=== PATIENT | male | born 1970 | race Caucasian/White ===

== ENCOUNTER → 2016-08-04 | Outpatient (CLI) | payer MEDICARE, MEDICAID ==
[~2016-08-04] MED LIST: ALDACTONE25 MG PO; ALLERGY RELIEF10 M1 PO; BACTRIM DS 8001 TA1 PO; BUMEX2.5 MG/10 IV; CALTRATE 600+D1 TAB PO; CLARITIN10 MG PO; COREG25 MG PO; COREG3.125 MG PO; DILTIAZEM240 MG PO; FERROUS SULFAT325 M1 PO; FLONASE0.05 MG/AC NS; FLOVENT 220 M220 MCG INH; FLOVENT HF0.11 MG/AC IH; FUROSEMIDE40 MG PO; HUMALOG100 U/ML SC; HYDROCODONE BIT1 T11 PO; INDOCIN50 M1 PO; INDOCIN50 MG PO; INSULIN-HUMA100 U/ML SC; JANUVIA100 MG PO; KLOR-CON M2020 MEQ PO; LANOXIN0.25 MG PO; LANTUS100 U/ML SC; LASIX40 MG PO; LEVOTHYROXINE0.1 MG PO; LIPITOR10 MG PO; Lac-Hydrin 12%340 GM TP; METFORMIN1000 MG PO; METFORMIN850 MG PO; MULTIPLE VITAMI1 TAB PO; NAPROSYN500 MG PO; NORCO 325 MG-51 TAB PO; NORVASC10 MG PO; PANTOPRAZOLE40 M1 PO; PERCOCET 325 MG1 TA2 PO; PERCOCET 325 MG1 TA7 PO; PRAVACHOL40 MG PO; PRILOSEC20 MG PO; PROAIR HFA0.09 MG/AC IH; PROAIR HFA0.09 MG/AC INH; RELION; ROXICODONE5 MG/5 ML PO; TORSEMIDE100 MG PO; TRICOR145 MG PO; VICO75300 PO; VICODIN ES 7501 TA1 PO; VICTOZA6 MG/ML SC; VITAMIN B12500 MCG PO; VITAMIN D5000 IU PO; ZEASORB-AF2% T; [UNRECOGNIZED DRUG - OTHER]; [UNRECOGNIZED DRUG - SUPPLY]
== END | disposition home or self-care (01) ==
LOC: LAB 07:37
DX: N18.9 Chronic kidney disease, unspecified (principal); M10.9 Gout, unspecified

== ENCOUNTER 2017-06-18 13:31 | Emergency (ER) | payer MEDICARE, MEDICAID ==
[~2017-06-18] VITALS: Ht 172.7 cm; Wt 204.6 kg
[2017-06-18 14:28] LABS: HEMATOCRIT 19.3 % (42.0-52.0); MEAN CELL VOLUME 90.2 fl (80.0-94.0); MEAN CORPUSCULAR HGB 26.2 pg (27.0-31.0); MEAN PLATELET VOLUME 11.2 fl (9.6-12.3); NUCLEATED RED BLOOD CELL 0.1 10*3/uL (0.0-0.0); PLATELET COUNT AUTOMATED 180 10*3/uL (130-400); RED BLOOD COUNT 2.14 10*6/uL (4.50-5.90); RED CELL DISTRI WIDTH 19.1 % (0-14.5); WHITE BLOOD COUNT 4.1 10*3/uL (4.8-10.8)
[2017-06-18 14:36] LABS: ACT PARTIAL THROMBO TIME 19.1 SECONDS (20.8-31.5); INTERNATIONAL NORM RATIO 1.1 (2.0-3.5)
[2017-06-18 14:44] LABS: ALBUMIN 2.9 gm/dl (3.1-4.5); CREATININE 1.86 mg/dL (0.70-1.30); TOTAL PROTEIN 6.3 gm/dL (6.4-8.2)
[2017-06-18 14:47] LABS: HEMOGLOBIN 5.6 g/dl (14.0-18.0)
[2017-06-18 14:51] LABS: TOTAL CELLS COUNTED 100 #CELLS
[2017-06-18 14:52] LABS: OVALOCYTES FEW; PLATELET SUFFICIENCY NORMAL (NORMAL)
[2017-06-18] MEDS ORDERED: BUMETANIDE1 MG PO (15:10)
[2017-06-18] MEDS ORDERED: ALLOPURINOL100 MG PO (15:10)
[2017-06-18] MEDS ORDERED: NYSTATIN CREAM15 GM T (15:12)
[2017-06-18 16:08] LABS: ABG BASE EXCESS 1.1 mmol/L (-2.0-2.0); ABG HCO3 24.7 mmol/l (22-26); ARTERIAL BLOOD GAS PCO2 35.7 mmHg (35-45); ARTERIAL BLOOD GAS PH 7.452 (7.35-7.45); ARTERIAL BLOOD GAS PO2 88.6 mmHg (80-90)
== END 2017-06-18 17:05 | disposition short-term general hospital (02) ==
LOC: ED 13:31
PROVIDERS: Emergency Medicine
DX: K92.2 Gastrointestinal hemorrhage, unspecified (principal); E66.01 Morbid (severe) obesity due to excess calories; D64.9 Anemia, unspecified; E11.9 Type 2 diabetes mellitus without complications; M10.9 Gout, unspecified; M25.511 Pain in right shoulder; G25.81 Restless legs syndrome; I11.0 Hypertensive heart disease with heart failure; I50.9 Heart failure, unspecified; G47.30 Sleep apnea, unspecified; J44.9 Chronic obstructive pulmonary disease, unspecified; Z98.84 Bariatric surgery status; Z79.899 Other long term (current) drug therapy; Z87.891 Personal history of nicotine dependence; Z79.4 Long term (current) use of insulin

== ENCOUNTER 2017-09-15 13:18 | Inpatient (IN) | payer OTHER ==
[2017-09-15] VITALS (10 sets, daily range): BP systolic 108–129; BP diastolic 53–80
[~2017-09-15] VITALS: Ht 182.9 cm; Wt 174.4 kg
--- NOTE | ~2017-09-15 | DS ---
[place], [place] DISCHARGE SUMMARY NAME: ANABELLA MALIK UNIT #: [id number] ROOM: 526 DOCTOR: JAMAAL BURNETTMIGUELANGEL J BIRTHDATE: [birth year] DOS: 09/21/2017 DISCHARGE DIAGNOSES: 1. Iron deficiency anemia and also history of gastrointestinal bleed. 2. Morbid obesity, poor prognosis. 3. Adult failure to thrive. 4. Benign essential hypertension. 5. Hypothyroidism. 6. Chronic gouty arthritis. 7. POLLEN allergies. 8. Chronic systolic type congestive heart failure. 9. Mixed hyperlipidemia. 10. Chronic obstructive pulmonary disease. 11. History of recurrent gastrointestinal bleed and blood loss anemia. 12. History of bronchial asthma, asthmatoid wheezing. 13. Benign essential hypertension. 14. Vitamin D deficiency. 15. Uncontrolled type 2 diabetes mellitus. 16. Gastroesophageal reflux disease and esophagitis. HOSPITAL COURSE: The patient was sent to the Emergency Department because his hemoglobin dropped to 6.8. The patient did have history of GI bleeds with normal endoscopies at [facility]. The patient was admitted and taken for endoscopy by Dr. Dahl. The patient's blood counts were monitored and he was transfused with blood as necessary. The patient started feeling better after the blood transfusion and as his hemoglobin stabilized, he was discharged to home in a stable condition. Uncontrolled type 2 diabetes mellitus. The patient's blood sugars were monitored and treated. Chronic diastolic type congestive heart failure, compensated. The patient remained on spironolactone and Coreg along with Bumex for diuresis. Hypothyroidism, treated with thyroid supplements. He remained on levothyroxine. Chronic gouty arthritis. The patient was treated with allopurinol, which was continued. POLLEN allergies, treated and asymptomatic with loratadine. DISCHARGE MANAGEMENT: MiraLax 17 grams daily, Ventolin inhaler p.r.n., allopurinol 100 mg daily, Lasix 40 mg daily, Protonix 40 mg a day, Coreg 3.125 mg b.i.d., Synthroid 100 mcg daily, Claritin 10 mg a day, potassium chloride 20 mEq daily, Aldactone 100 mg a day, Lantus insulin, Percocet p.r.n. [place], [place] DISCHARGE SUMMARY NAME: ANABELLA MALIK UNIT #: [id number] ROOM: 526 DOCTOR: MIGUELANGEL HINTON MD BIRTHDATE: [birth year] MIGUELANGEL HINTON MD CM:RAHUL [id number] MIGUELANGEL HINTON MD 09/29/17 0040 interface
--- NOTE | ~2017-09-15 | WRIGHTHP ---
[place], [place] PATIENT HISTORY AND PHYSICAL EXAM NAME: ANABELLA MALIK UNIT #: [id number] ROOM: 526 DOCTOR: MIGUELANGEL HINTON MD BIRTHDATE: [birth year] DOS: 09/15/2017 HISTORY OF PRESENT ILLNESS: The patient is a 46-year-old gentleman with: 1. Morbid obesity. 2. Recurrent GI bleed and blood loss anemia from uncertain site. 3. History of COPD and bronchial asthma. 4. History of benign essential hypertension. 5. Mixed hyperlipidemia. 6. Chronic systolic type congestive heart failure. 7. History of vitamin D deficiency. 8. History of type 2 diabetes mellitus, uncontrolled. 9. Advance adult failure to thrive and disability with poor prognosis. 10. Chronic kidney disease. 11. Chronic gouty arthritis. 12. Hypothyroidism. 13. GERD and esophagitis. The patient presented to the Emergency Department, sent over because of dropping hemoglobin to 6.8. The patient also had heme-positive stools and he was previously diagnosed as having acute GI bleed with normal endoscopies at [facility]. At this time, he was evaluated in the Emergency Department and recommended for admission to a monitored bed and a consult was obtained with web press roll tender, Dr. Dahl who plans to do endoscopy is him tomorrow. The patient's hemoglobins will be monitored on daily basis and treated accordingly. Chronic systolic type congestive heart failure. The patient remains on Coreg and spironolactone as well as Bumex, which has been continued. His serum electrolytes will be monitored daily. Hypothyroidism, treated with levothyroxine. Chronic gouty arthritis, asymptomatic. The patient remains on allopurinol. POLLEN allergies, treated and asymptomatic with loratadine. Uncontrolled type 2 diabetes mellitus. The patient remains on insulin. Blood sugar is to be monitored and he will be kept on a no concentrated sweet diet. [place], [place] PATIENT HISTORY AND PHYSICAL EXAM NAME: ANABELLA MALIK UNIT #: [id number] ROOM: 526 DOCTOR: MIGUELANGEL HINTON MD BIRTHDATE: [birth year] MIGUELANGEL HINTON MD CM:HISPHYS:PATIENT HISTORY AND PHYSICAL EXAMINATION [phone] MIGUELANGEL HINTON MD 09/15/17 1829 interface
--- NOTE | ~2017-09-15 | PR ---
[place], [place] PROGRESS NOTE NAME: ANABELLA MALIK UNIT #: [id number] ROOM: 526 DOCTOR: MIGUELANGEL HINTON MD BIRTHDATE: [birth year] DOS: 09/16/2017 SUBJECTIVE: The patient is feeling somewhat better after blood transfusion. He is going for EGD and colonoscopy by Dr. Dahl today. OBJECTIVE: VITAL SIGNS: Blood pressure 141/50, heart rate of 100 beats per minute, breathing 20 times per minute, temperature 98.1 degrees Fahrenheit. GENERAL APPEARANCE: Morbid obesity. HEENT AND NECK: Exam within normal limits. CARDIOVASCULAR SYSTEM: Heart rate is regular in rate and rhythm. S1 and S2 normally audible. LUNGS: Clear to auscultation. ABDOMEN: Soft, nontender. No obvious organomegaly. Bowel sounds are present. EXTREMITIES: Without significant cyanosis or edema. IMPRESSION: 1. The patient with acute gastrointestinal bleed and anemia with drop in hemoglobin, treated with blood transfusion and hemoglobin has improved to 8.1 from 7.8. A precipitous drop in hemoglobin related to gastrointestinal blood loss. The patient will be evaluated with an esophagogastroduodenoscopy and colonoscopy today. 2. Morbid obesity. The patient is working with dietary. 3. Uncontrolled type 2 diabetes mellitus secondary to poor diet and morbid obesity. 4. Hypothyroidism, replaced with levothyroxine. 5. Chronic gouty arthritis, asymptomatic, treated with allopurinol. 6. Pollen allergies treated and asymptomatic with loratadine. 7. Chronic systolic type congestive heart failure, treated with spironolactone, Coreg and diuresed with Bumex. 8. Mixed hyperlipidemia, followed and treated. 9. Chronic obstructive pulmonary disease, bronchial asthma and chronic respiratory failure, stable at this time. The patient uses oxygen, bronchodilators as needed. [place], [place] PROGRESS NOTE NAME: ANABELLA MALIK UNIT #: [id number] ROOM: 526 DOCTOR: MIGUELANGEL HINTON MD BIRTHDATE: [birth year] MIGUELANGEL HINTON MD CM:PNTRANS [phone] MIGUELANGEL HINTON MD 09/16/17 2330 interface
--- NOTE | ~2017-09-15 | PR ---
[place], [place] PROGRESS NOTE NAME: ANABELLA MALIK UNIT #: [id number] ROOM: 526 DOCTOR: KATALINA MARTINEZ MD BIRTHDATE: [birth year] DOS: SUBJECTIVE: The patient is doing fine without any complaints this morning. OBJECTIVE: VITAL SIGNS: Graphic trend shows a pressure 112/58, pulse of 106, respirations 20, temperature 98.1. LUNGS: Clear. HEART: Regular. ABDOMEN: Obese. EXTREMITIES: Without any edema. ASSESSMENT AND PLAN: 1. Iron deficiency anemia with hemoccult stools. Endoscopy, colonoscopy were negative. The patient is receiving IV iron infusions. An extra dose of iron supplements p.o. and an extra blood transfusion yesterday. Hemoglobin is up to 8.9. Will ask Dr. Rodriguez for an opinion. 2. Folic acid deficiency. Folic acid supplements will be added. 3. GI bleed, but no active bleed since admission. Endoscopy and colonoscopy were done and were noted. 4. Adult failure to thrive. He will be discharged to home tomorrow if things are stable. KATALINA MARTINEZ MD CM:PNTRANS [phone] KATALINA MARTINEZ MD 09/30/17 0918 interface
--- NOTE | ~2017-09-15 | O ---
[place], [place] OPERATIVE NOTE NAME: [id number] UNIT #: [id number] ROOM: 526 DOCTOR: YEN SERRANO MD BIRTHDATE: [birth year] DOS: 09/16/2017 HISTORY OF PRESENT ILLNESS: This is a 46-year-old with super morbid obesity, who has presented to Emergency Room the day before yesterday with anemia and Dr. Beard called me with his concern that he wants to admit the patient for guaiac positivity. A panel of blood work was done. Lactic acid was 2.0, H and H dropped to 6.8 and 24, microcytic indices. His INR 1.0. His sugar 326. BUN and creatinine 31 and 1.4, GFR greater than 60. Reticulocyte count is "reticing" adequately. Iron binding studies were done, a total iron is 22, low with saturation 5%. His latest CBC after transfusion, improved to 8 and 28. Basic metabolic remains normal. PAST MEDICAL HISTORY: Super morbid obesity, COPD, congestive heart failure, gout, hypothyroidism, sciatica, diabetes mellitus, and history of GI bleed. PAST SURGICAL HISTORY: Status post gastric banding by history, Pricilla-en-Y gastric bypass, and history of tonsillectomy. SOCIAL HISTORY: Nonsmoker, nonalcohol consumer. FAMILY HISTORY: Diabetes and hypertension. ALLERGIES: No known medication. MEDICATION: Medication list has been reviewed. He is on iron supplementation on pantoprazole in addition to mutli other medication in addition to multivitamin and Cyanocobalamin as well. He is on insulin. PROCEDURE: Today's procedure part of investigation is panendoscopy and colonoscopy. PREMEDICATION: Propofol. SCOPE: Olympus forward-viewing gastroscope Q10 video. REPORT: After putting the patient in left lateral position and application of lubricant to the scope, the scope was introduced thereafter under direct visualization, passed through the length of esophagus without difficulty. Gastric pouch was entered. Mild reflux esophagitis noticed, residual gastric pouch is benign and efferent loop at the anastomotic site appears to be free of ulceration and lesion. Photographed. Air was suctioned out. The patient was extubated, tolerated the procedure well. IMPRESSION: Status post gastric bypass configuration without ulcerations at the anastomotic site. PLAN AND DISCUSSION: We are going to continue with PPI at least omeprazole 20 mg and we are going to check the colon today. HISTORY OF PRESENT ILLNESS: This is a 46-year-old with anemia, undergoing [place], [place] OPERATIVE NOTE NAME: ANABELLA MALIK UNIT #: [id number] ROOM: 526 DOCTOR: MAGGIE BURNETT,[facility] BIRTHDATE: [birth year] investigation. PROCEDURE: Today's procedure part of investigation is colonoscopy. PREMEDICATIONS: Propofol. SCOPE: Olympus folding colonoscope 10L video. REPORT: After putting the patient in left lateral position and application of lubricant to rectal pouch and digital examination, the scope was introduced; thereafter, under direct visualization, advanced through the length of colon with some difficulty with difficulty being redundancy of colon as well as retention of stool, which is expected. However, we managed to get to the cecum. A photographic series of the area was obtained. Air was suctioned out, retained stool all throughout the length of the colon from rectum to cecum noticed. This was in semi-liquid form. Therefore, mucosal evaluation impractical. However, I did not see any acute groin tumor within intraluminally. Air was suctioned out. The patient was extubated, tolerated the procedure well. IMPRESSION: Retained stool, otherwise normal colonoscopic examination. The characteristics that was expected. Redundancy of colon and very dilated colon because of the size of the patient. PLAN AND DISCUSSION: Resuming an 1800 ADA calorie diet for him and now that we have transfused. We will continue with multivitamin and iron supplementation and periodic recheck of stool for guaiac and clinical reassessment. As far as the source of bleeding is concerned, there is no definitive site to be the culprit for the bleeding at this time. AVMs along the guts cannot be ruled out; however impractical to visualize in his situation and presence of stool. On the other hand, contribution of anemia from not only his gastric bypass, also with the stress that he has perhaps is chronic disease on board and element of blood loss; however, recommending reassessment of guaiac stool. If he continues to lose blood. He needs future repeat colonoscopy after he has cleaned after 2 days of full prep and if it is still do not end up with the answer, then capsule endoscopy of the small bowel would be recommended. These are, however, in future. Thank you very much indeed. [place], [place] OPERATIVE NOTE NAME: ANABELLA MALIK UNIT #: [id number] ROOM: 526 DOCTOR: MAGGIE BURNETT,YEN BIRTHDATE: [birth year] YEN SERRANO MD CM:OPRECORD:OPERATIVE NOTE [phone] YEN SERRANO MD 10/05/17 0758 interface
--- NOTE | ~2017-09-15 | PR ---
[place], [place] PROGRESS NOTE NAME: [id number] UNIT #: [id number] ROOM: 526 DOCTOR: KATALINA MARTINEZ MD BIRTHDATE: [birth year] DOS: 09/17/2017 SUBJECTIVE: The patient is resting comfortably, does not have any new complaints. He did have an endoscopy and colonoscopy yesterday and both was fairly within normal limits except for gastritis and Dr. Dahl did advise continuation of his Prilosec. Denies having any chest pains or palpitations, does not have any blood work available yet. OBJECTIVE EXAMINATION: GENERAL: He is awake and alert and oriented. VITAL SIGNS: Graphic trend shows a pressure of 132/70, pulse of 86, respirations 14, afebrile. LUNGS: Clear. HEART: Regular. ABDOMEN: Obese, soft. EXTREMITIES: Without any edema. LABORATORY DATA: None available yet. ASSESSMENT AND PLAN: 1. Anemia, most likely iron deficiency. Iron ferritin levels will be ordered today and we will decide on whether the patient would benefit from iron infusions versus blood transfusion. I did also review his medications and he has been taking Naprosyn, advised the patient that he should not be on that medicine any longer because of his continued problems with bleeding. 2. Morbid obesity with adult failure to thrive is stable. If the H and H continue to remain stable, the plan is therefore to discharge him to home. 3. Benign hypertension, controlled. KATALINA MARTINEZ MD CM:PNTRANS [phone] KATALINA MARTINEZ MD 09/18/17 0024 interface
--- NOTE | ~2017-09-15 | PR ---
[place], [place] PROGRESS NOTE [facility]: [id number] UNIT #: [id number] ROOM: 526 DOCTOR: KATALINA MARTINEZ MD BIRTHDATE: [birth year] DOS: SUBJECTIVE: The patient is doing better, does not have any new complaints today. He has not had any active bleeding. OBJECTIVE: VITAL SIGNS: Blood pressure is 129/61, pulse of 113, respirations 20, temperature 98.2. LUNGS: Clear. HEART: Regular. ABDOMEN: Obese. EXTREMITIES: Without any edema. LABORATORY DATA: White cell count of 4.0, hemoglobin 7.8, hematocrit 27.8, platelets 167. ASSESSMENT AND PLAN: 1. Anemia, iron deficiency. Iron supplements p.o. and IV have been ordered. Blood transfusion will be given again today. We will ask Dr. Rodriguez for an opinion because of the continued problems with anemia. He has already had an endoscopy and he has been advised to not take any nonsteroidals which he has stopped. 2. Hypertension, controlled. KATALINA MARTINEZ MD CM:PNTRANS [phone] KATALINA MARTINEZ MD 09/30/17 0917 interface
[~2017-09-15 13:18] MED LIST changes: +ALLOPURINOL100 MG PO; +BUMETANIDE1 MG PO; +NYSTATIN CREAM15 GM T
[2017-09-15 14:03] LABS: BASO % 0.8 % (0.0-1.0); EOS # 0.1 10*3/uL (0.0-0.4); EOS % 1.8 % (1.0-4.0); HEMATOCRIT 24.2 % (42.0-52.0); HEMOGLOBIN 6.8 g/dl (14.0-18.0); LYMPH # 0.7 10*3/uL (1.3-4.4); LYMPH % 14.2 % (27.0-41.0); MEAN CELL VOLUME 88.6 fl (80.0-94.0); MEAN CORPUSCULAR HGB 24.9 pg (27.0-31.0); MEAN CORPUSCULAR HGB CONC 28.1 g/dl (33.0-37.0); MEAN PLATELET VOLUME 11.4 fl (9.6-12.3); MONO # 0.6 10*3/uL (0.1-1.0); MONO % 11.9 % (3.0-9.0); NEUT # 3.6 10*3/uL (2.3-7.9); NEUT % 69.7 % (47.0-73.0); NUCLEATED RED BLOOD CELL 0.4 % (0.0-0.0); PLATELET COUNT AUTOMATED 170 10*3/uL (130-400); RED BLOOD COUNT 2.73 10*6/uL (4.50-5.90); RED CELL DISTRI WIDTH 19.9 % (0-14.5); WHITE BLOOD COUNT 5.1 10*3/uL (4.8-10.8)
[2017-09-15 14:21] LABS: ALKALINE PHOSPHATASE 283 U/L (45-117); BUN 31 mg/dl (7-24); CHLORIDE 107 mmol/L (98-107); CREATININE 1.47 mg/dL (0.70-1.30); LIPASE 176 U/L (73-393); POTASSIUM 3.9 mmol/L (3.5-5.1); SGOT/AST 52 IU/L (3-35); SGPT/ALT 52 U/L (12-78); SODIUM 140 mmol/L (136-145); TOTAL PROTEIN 6.6 gm/dL (6.4-8.2); TROPONIN I < 0.015 ng/ml (<0.045)
[2017-09-15 15:24] LABS: RETICULOCYTE % 5.73 % (0.50-2.50)
[2017-09-15 15:40] LABS: IRON 22 ug/dL (65-175)
[2017-09-15 15:43] LABS: TOTAL IRON BINDING CAPACITY 438 ug/dl (250-450)
[2017-09-15 15:46] LABS: FERRITIN 20.4 ng/mL (22.0-322.0)
[2017-09-15] MEDS ORDERED: LANTUS SOL100 UNIT/1 SQ ×3 (16:13→16:14)
[2017-09-15] MEDS ORDERED: GLUCOPHAGE1000 MG PO (16:13)
[2017-09-15] MEDS ORDERED: PERCOCET 10-321 EACH PO (22:16)
[2017-09-16] VITALS (8 sets, daily range): BP systolic 118–141; BP diastolic 50–75
[2017-09-16 00:20] LABS: HEMATOCRIT 27.2 % (42.0-52.0); HEMOGLOBIN 7.8 g/dl (14.0-18.0)
[2017-09-16 06:29] LABS: BASO % 0.8 % (0.0-1.0); EOS # 0.1 10*3/uL (0.0-0.4); EOS % 2.7 % (1.0-4.0); HEMATOCRIT 28.5 % (42.0-52.0); HEMOGLOBIN 8.1 g/dl (14.0-18.0); LYMPH # 0.8 10*3/uL (1.3-4.4); LYMPH % 15.5 % (27.0-41.0); MEAN CELL VOLUME 88.8 fl (80.0-94.0); MEAN CORPUSCULAR HGB 25.2 pg (27.0-31.0); MEAN CORPUSCULAR HGB CONC 28.4 g/dl (33.0-37.0); MEAN PLATELET VOLUME 11.2 fl (9.6-12.3); MONO # 0.6 10*3/uL (0.1-1.0); MONO % 11.9 % (3.0-9.0); NEUT # 3.3 10*3/uL (2.3-7.9); NEUT % 68.1 % (47.0-73.0); PLATELET COUNT AUTOMATED 172 10*3/uL (130-400); RED BLOOD COUNT 3.21 10*6/uL (4.50-5.90); RED CELL DISTRI WIDTH 18.9 % (0-14.5); WHITE BLOOD COUNT 4.9 10*3/uL (4.8-10.8)
[2017-09-16 07:06] LABS: BUN 26 mg/dl (7-24); CHLORIDE 107 mmol/L (98-107); CREATININE 1.22 mg/dL (0.70-1.30); POTASSIUM 3.6 mmol/L (3.5-5.1); SODIUM 141 mmol/L (136-145)
[2017-09-17] VITALS: BP 99/46
[2017-09-17 06:32] LABS: BASO % 0.5 % (0.0-1.0); EOS # 0.1 10*3/uL (0.0-0.4); EOS % 1.9 % (1.0-4.0); HEMATOCRIT 27.8 % (42.0-52.0); HEMOGLOBIN 7.8 g/dl (14.0-18.0); LYMPH # 1.1 10*3/uL (1.3-4.4); LYMPH % 18.4 % (27.0-41.0); MEAN CELL VOLUME 89.4 fl (80.0-94.0); MEAN CORPUSCULAR HGB 25.1 pg (27.0-31.0); MEAN CORPUSCULAR HGB CONC 28.1 g/dl (33.0-37.0); MEAN PLATELET VOLUME 11.2 fl (9.6-12.3); MONO # 0.6 10*3/uL (0.1-1.0); MONO % 9.6 % (3.0-9.0); NEUT # 3.9 10*3/uL (2.3-7.9); NEUT % 68.6 % (47.0-73.0); PLATELET COUNT AUTOMATED 177 10*3/uL (130-400); RED BLOOD COUNT 3.11 10*6/uL (4.50-5.90); RED CELL DISTRI WIDTH 19.4 % (0-14.5); WHITE BLOOD COUNT 5.8 10*3/uL (4.8-10.8)
[2017-09-17 06:54] LABS: BUN 23 mg/dl (7-24); CHLORIDE 106 mmol/L (98-107); CREATININE 1.23 mg/dL (0.70-1.30); POTASSIUM 3.7 mmol/L (3.5-5.1); SODIUM 141 mmol/L (136-145)
[2017-09-17 08:00] VITALS: BP 124/69
[2017-09-17 12:00] VITALS: BP 130/62
[2017-09-17 16:00] VITALS: BP 122/57
[2017-09-17 20:00] VITALS: BP 123/64
[2017-09-18] VITALS (10 sets, daily range): BP systolic 102–138; BP diastolic 55–109
[2017-09-18] MEDS ORDERED: FERRETTS325 M1 PO (05:44)
[2017-09-18 05:47] LABS: BUN 20 mg/dl (7-24); CHLORIDE 104 mmol/L (98-107); CREATININE 1.24 mg/dL (0.70-1.30); POTASSIUM 3.6 mmol/L (3.5-5.1); SODIUM 142 mmol/L (136-145)
[2017-09-18 06:15] LABS: BASO % 0.7 % (0.0-1.0); EOS # 0.1 10*3/uL (0.0-0.4); EOS % 3.2 % (1.0-4.0); HEMATOCRIT 27.8 % (42.0-52.0); HEMOGLOBIN 7.8 g/dl (14.0-18.0); LYMPH % 25.2 % (27.0-41.0); MEAN CELL VOLUME 89.4 fl (80.0-94.0); MEAN CORPUSCULAR HGB 25.1 pg (27.0-31.0); MEAN CORPUSCULAR HGB CONC 28.1 g/dl (33.0-37.0); MEAN PLATELET VOLUME 10.9 fl (9.6-12.3); MONO # 0.5 10*3/uL (0.1-1.0); MONO % 12.1 % (3.0-9.0); NEUT # 2.3 10*3/uL (2.3-7.9); NEUT % 57.3 % (47.0-73.0); NUCLEATED RED BLOOD CELL 0.5 % (0.0-0.0); PLATELET COUNT AUTOMATED 167 10*3/uL (130-400); RED BLOOD COUNT 3.11 10*6/uL (4.50-5.90); RED CELL DISTRI WIDTH 19.8 % (0-14.5)
[2017-09-19] VITALS: BP 112/58
[2017-09-19 06:13] LABS: BASO # 0.1 10*3/uL (0.0-0.1); BASO % 1.2 % (0.0-1.0); EOS # 0.2 10*3/uL (0.0-0.4); EOS % 3.7 % (1.0-4.0); HEMATOCRIT 31.3 % (42.0-52.0); HEMOGLOBIN 8.9 g/dl (14.0-18.0); LYMPH # 0.9 10*3/uL (1.3-4.4); LYMPH % 20.8 % (27.0-41.0); MEAN CELL VOLUME 89.7 fl (80.0-94.0); MEAN CORPUSCULAR HGB 25.5 pg (27.0-31.0); MEAN CORPUSCULAR HGB CONC 28.4 g/dl (33.0-37.0); MEAN PLATELET VOLUME 11.2 fl (9.6-12.3); MONO # 0.5 10*3/uL (0.1-1.0); MONO % 12.2 % (3.0-9.0); NEUT # 2.6 10*3/uL (2.3-7.9); NUCLEATED RED BLOOD CELL 0.5 % (0.0-0.0); PLATELET COUNT AUTOMATED 165 10*3/uL (130-400); RED BLOOD COUNT 3.49 10*6/uL (4.50-5.90); RED CELL DISTRI WIDTH 19.6 % (0-14.5); WHITE BLOOD COUNT 4.3 10*3/uL (4.8-10.8)
[2017-09-19 08:00] VITALS: BP 136/86
[2017-09-19 12:00] VITALS: BP 122/77
[2017-09-19 16:00] VITALS: BP 141/75
[2017-09-19 20:00] VITALS: BP 123/69
[2017-09-20] VITALS: BP 108/71
[2017-09-20 06:44] LABS: BASO # 0.1 10*3/uL (0.0-0.1); BASO % 1.1 % (0.0-1.0); EOS # 0.2 10*3/uL (0.0-0.4); EOS % 3.7 % (1.0-4.0); HEMATOCRIT 33.3 % (42.0-52.0); HEMOGLOBIN 9.2 g/dl (14.0-18.0); LYMPH # 0.9 10*3/uL (1.3-4.4); LYMPH % 19.8 % (27.0-41.0); MEAN CELL VOLUME 91.7 fl (80.0-94.0); MEAN CORPUSCULAR HGB 25.3 pg (27.0-31.0); MEAN CORPUSCULAR HGB CONC 27.6 g/dl (33.0-37.0); MEAN PLATELET VOLUME 11.1 fl (9.6-12.3); MONO # 0.6 10*3/uL (0.1-1.0); MONO % 11.8 % (3.0-9.0); NEUT # 2.9 10*3/uL (2.3-7.9); NEUT % 61.4 % (47.0-73.0); NUCLEATED RED BLOOD CELL 0.4 % (0.0-0.0); PLATELET COUNT AUTOMATED 165 10*3/uL (130-400); RED BLOOD COUNT 3.63 10*6/uL (4.50-5.90); RED CELL DISTRI WIDTH 19.9 % (0-14.5); WHITE BLOOD COUNT 4.7 10*3/uL (4.8-10.8)
[2017-09-20 06:59] LABS: BUN 18 mg/dl (7-24); CHLORIDE 104 mmol/L (98-107); CREATININE 1.19 mg/dL (0.70-1.30); POTASSIUM 3.7 mmol/L (3.5-5.1); SODIUM 144 mmol/L (136-145)
[2017-09-20 08:00] VITALS: BP 136/70
[2017-09-20 08:08] LABS: HAPTOGLOBIN 001628 69 mg/dL (34-200)
[2017-09-20 12:00] VITALS: BP 124/64
[2017-09-20 16:00] VITALS: BP 108/49
[2017-09-20 20:00] VITALS: BP 139/88
[2017-09-21] VITALS: BP 116/67
[2017-09-21 08:00] VITALS: BP 114/64
[2017-09-21 12:00] VITALS: BP 125/58
[2017-09-21 12:05] LABS: BASO # 0.1 10*3/uL (0.0-0.1); BASO % 0.9 % (0.0-1.0); EOS # 0.2 10*3/uL (0.0-0.4); EOS % 3.6 % (1.0-4.0); HEMOGLOBIN 9.5 g/dl (14.0-18.0); LYMPH # 0.5 10*3/uL (1.3-4.4); LYMPH % 9.9 % (27.0-41.0); MEAN CELL VOLUME 91.4 fl (80.0-94.0); MEAN CORPUSCULAR HGB 25.5 pg (27.0-31.0); MEAN CORPUSCULAR HGB CONC 27.9 g/dl (33.0-37.0); MEAN PLATELET VOLUME 10.5 fl (9.6-12.3); MONO # 0.5 10*3/uL (0.1-1.0); MONO % 8.9 % (3.0-9.0); NEUT # 4.1 10*3/uL (2.3-7.9); NEUT % 74.9 % (47.0-73.0); PLATELET COUNT AUTOMATED 148 10*3/uL (130-400); RED BLOOD COUNT 3.72 10*6/uL (4.50-5.90); RED CELL DISTRI WIDTH 20.4 % (0-14.5); WHITE BLOOD COUNT 5.5 10*3/uL (4.8-10.8)
[2017-09-21 13:08] LABS: ALBUMIN 2.8 g/dL (2.9-4.4); ALPHA-1-GLOBULIN 0.3 g/dL (0.0-0.4); ALPHA-2-GLOBULIN 0.6 g/dL (0.4-1.0); BETA GLOBULIN 1.1 g/dL (0.7-1.3); GAMMA GLOBULIN 0.9 g/dL (0.4-1.8); GLOBULIN, TOTAL 2.9 g/dL (2.2-3.9); M-SPIKE Not Observed g/dL (Not Observed); TOTAL PROTEIN, SERUM 5.7 g/dL (6.0-8.5)
[2017-09-21 16:08] LABS: ALBUMIN, URINE 21.2 % (.); ALPHA - 2 - GLOBULIN, URINE 5.2 % (.); ALPHA-1-GLOBULIN, URINE 3.6 % (.); BETA GLOBULIN, URINE 41.8 % (.); GAMMA GLOBULIN, URINE 28.2 % (.); M-SPIKE, % Not Observed % (Not Observed)
== END 2017-09-21 15:59 | disposition home or self-care (01) | DRG 378 ==
LOC: ED 13:18 → 5E 15:32 → EDHOLD 15:32 → 5E 16:23
PROVIDERS: Emergency Medicine; Internal Medicine; Internal Medicine Hematology & Oncology; Student in an Organized Health Care Education/Training Program
DX: K29.71 Gastritis, unspecified, with bleeding (principal); J96.10 Chronic respiratory failure, unspecified whether with hypoxia or hypercapnia; E11.22 Type 2 diabetes mellitus with diabetic chronic kidney disease; E44.0 Moderate protein-calorie malnutrition; D62 Acute posthemorrhagic anemia; E11.65 Type 2 diabetes mellitus with hyperglycemia; E66.01 Morbid (severe) obesity due to excess calories; I13.0 Hypertensive heart and chronic kidney disease with heart failure and stage 1 through stage 4 chronic kidney disease, or unspecified chronic kidney disease; I50.22 Chronic systolic (congestive) heart failure; Z68.43 Body mass index [BMI] 50.0-59.9, adult; Z66 Do not resuscitate; Z51.5 Encounter for palliative care; J41.0 Simple chronic bronchitis; G47.33 Obstructive sleep apnea (adult) (pediatric); E78.2 Mixed hyperlipidemia; E55.9 Vitamin D deficiency, unspecified; R62.7 Adult failure to thrive; N18.9 Chronic kidney disease, unspecified; M1A.9XX0 Chronic gout, unspecified, without tophus (tophi); E03.9 Hypothyroidism, unspecified; K21.0 Gastro-esophageal reflux disease with esophagitis; D50.9 Iron deficiency anemia, unspecified; M54.42 Lumbago with sciatica, left side; E53.8 Deficiency of other specified B group vitamins; Z83.3 Family history of diabetes mellitus; Z82.49 Family history of ischemic heart disease and other diseases of the circulatory system; Z88.8 Allergy status to other drugs, medicaments and biological substances; Z79.51 Long term (current) use of inhaled steroids; Z79.4 Long term (current) use of insulin; Z79.899 Other long term (current) drug therapy

== ENCOUNTER → 2018-08-08 | Outpatient (CLI) | payer MEDICARE ==
[~2018-08-08] MED LIST changes: +AMOXICILLIN500 M2 PO; +BUMETANIDE2 MG PO; +BUPROPION HCL150 M2 PO; +COLCHICINE0.6 M1 PO; +CYCLOBENZAPRINE10 MG PO; +FERRETTS325 M1 PO; -FERROUS SULFAT325 M1 PO; +GLUCOPHAGE1000 MG PO; -HUMALOG100 U/ML SC; +HUMALOG100 UNIT/1 SQ; +IRON325 M1 PO; +KLOR-CON M2020 ME1 PO; +LANTUS SOL100 UNIT/1 SC; +LANTUS SOL100 UNIT/1 SQ; -LEVOTHYROXINE0.1 MG PO; +LEVOTHYROXINE200 MC2 PO; +Lantus SC; +MIRAPEX1 MG PO; +NEURONTIN300 MG PO; +OZEMPIC1 MG/0.75 SQ; -PANTOPRAZOLE40 M1 PO; +PERCOCET 10-321 EACH PO; +PERCOCET 5-3251 EACH PO; +PROTONIX40 MG PO; +TORSEMIDE20 MG PO; +VICTOZA 2-0.6 MG/0.1 SC; +VITAMIN C1000 M5 PO; +VITAMIN D50000 UNIT PO
== END | disposition home or self-care (01) ==
LOC: WOUNDCARE 00:44
DX: E11.622 Type 2 diabetes mellitus with other skin ulcer (principal); L97.821 Non-pressure chronic ulcer of other part of left lower leg limited to breakdown of skin; I87.332 Chronic venous hypertension (idiopathic) with ulcer and inflammation of left lower extremity; S90.415A Abrasion, left lesser toe(s), initial encounter; I11.0 Hypertensive heart disease with heart failure; I50.9 Heart failure, unspecified; J45.909 Unspecified asthma, uncomplicated; M10.9 Gout, unspecified; E66.01 Morbid (severe) obesity due to excess calories; Z68.43 Body mass index [BMI] 50.0-59.9, adult; W18.49XA Other slipping, tripping and stumbling without falling, initial encounter; Y93.89 Activity, other specified; Y92.89 Other specified places as the place of occurrence of the external cause; Y99.8 Other external cause status

== ENCOUNTER 2018-11-23 22:32 | Inpatient (IN) | payer MEDICARE ==
[~2018-11-23] VITALS: Ht 182.8 cm; Wt 172.4 kg
--- NOTE | ~2018-11-23 | PR ---
[place], [place] PROGRESS NOTE NAME: ANABELLA MALIK UNIT #: [id number] ROOM: 532 DOCTOR: KATALINA MARTINEZ MD BIRTHDATE: [birth year] DOS: 11/27/2018 SUBJECTIVE: The patient is doing well without any complaints. OBJECTIVE: VITAL SIGNS: Graphic trend shows a pressure of 107/63, pulse of 89, respirations 20, temperature 97.4. LUNGS: Clear. HEART: Regular. ABDOMEN: Soft. Large pannus. EXTREMITIES: Without any edema. LABORATORY DATA: Enterococcus faecalis noticed in the urine culture only 25,000 colonies, which is sensitive to penicillins. Blood culture shows no bacterial growth. ASSESSMENT AND PLAN: 1. Acute kidney injury from over diuresis and prerenal azotemia. This is improved. He is off his diuretics, IV fluids have been discontinued. 2. Morbid obesity with a large pannus. Awaiting surgery. 3. Benign hypertension, controlled. 4. Type 2 diabetes mellitus. Blood sugars in the low 200s. The patient is stable, can be discharged. KATALINA MARTINEZ MD CM:PNTRANS KATALINA MARTINEZ MD 12/04/1824 interface
--- NOTE | ~2018-11-23 | EKG ---
[place], [place] ELECTROCARDIOGRAM REPORT NAME: ANABELLA MALIK UNIT #: [id number] ROOM: 532 DOCTOR: EMMA DRAFT REPORT BIRTHDATE: [birth year] [facility] Test Date: 2018-11-24 Test Time: 15:27:19 Pat Name: ANABELLA MALIK Department: Room: 532 1 Gender: M Recovery Collector: Michelle Scott : 1970 Requested By: EZIO DAMICO Order Number: [id number] Reading MD: René Dupont MD Measurements Intervals [place] Rate: 92 P: 25 WA: 154 QRS: 11 QRSD: 99 T: 110 QT: 392 QTc: 485 Interpretive Statements Sinus rhythm Abnormal R-wave progression, early transition Nonspecific T abnormalities, lateral leads Borderline prolonged QT interval Consider prior inferoposterior infarct Electronically Signed On 11-25-2018 7:58:44 PDT by René Dupont MD CM:EKGRPT:ELECTROCARDIOGRAM REPORT [id number] EZIO CARTER DRAFT REPORT EZIO DAMICO
--- NOTE | ~2018-11-23 | PR ---
[place], [place] PROGRESS NOTE NAME[id number] UNIT #: [id number] ROOM: 532 DOCTOR: KATALINA MARTINEZ MD BIRTHDATE: [birth year] DOS: SUBJECTIVE: The patient is doing well, has no complaints today. OBJECTIVE: VITAL SIGNS: Graphic trend shows a pressure 122/72, pulse of 90, respirations 20, temperature 97.1. LUNGS: Clear. HEART: Regular. ABDOMEN: Obese, soft, nontender. Large pannus of the abdomen. EXTREMITIES: Without any edema. LABORATORY DATA: This morning, labs, glucose 218, BUN 47, creatinine 1.10, sodium 146, potassium 3.6, chloride 109, bicarbonate 29. ASSESSMENT AND PLAN: 1. Acute kidney injury from overdiuresis. Kidney functions have improved after IV fluids were given. This morning, Dr. Sanchez has discontinued the IV fluids. The plan is to discharge him to home tomorrow and restart some of his diuretics at that time. 2. Hypokalemia. Supplementation was given and is corrected. 3. Morbid obesity with adult failure to thrive. Continue supportive care. KATALINA MARTINEZ MD CM:PNTRANS [phone] KATALINA MARTINEZ MD 11/26/18 3515 interface
--- NOTE | ~2018-11-23 | PR ---
[place], [place] PROGRESS NOTE NAME[id number] UNIT #: [id number] ROOM: 532 DOCTOR: VEE NGUYEN BIRTHDATE: [birth year] DOS: 11/25/2018 The patient is being seen in followup for troponin elevation. SUBJECTIVE: The patient denies any complaints of shortness of breath or chest pain. There are no palpitations. He overall feels okay. Repeat troponin this morning is back down into the normal range. We are still awaiting records from [facility], they have not been faxed over yet, awaiting on a stress test and echo report that was done recently. OBJECTIVE: VITAL SIGNS: Temperature 98, pulse 86, respirations 20, blood pressure 100/64, saturating 98% on room air. GENERAL APPEARANCE: A very morbidly obese gentleman lying in bed, in no distress. NECK: Very full and supple, impossible to assess jugular venous pressure. RESPIRATORY: Lungs are diminished. CARDIOVASCULAR: Regular rhythm with a normal rate. No murmurs. ABDOMEN: Severely obese with absolutely massive pannus that hangs down to his legs. EXTREMITIES: No edema. He has some chronic venous stasis changes. LABORATORY DATA: Hemoglobin 14.6, platelets low at 67, potassium 3.1, BUN 76, creatinine 1.53, which continues to trend down. CURRENT CARDIAC MEDICATIONS: Include carvedilol 3.125 mg b.i.d., his other cardiac meds are on hold including bumetanide, spironolactone, metolazone. IMPRESSION: 1. Minimal troponin elevation, likely type 2 myocardial infarction, demand ischemia in the setting of renal failure with lactic acidosis, dehydration. 2. Chronic heart failure, most recent ejection fraction from 2014 was normal. Most recent echo from [facility] requested, but has not arrived yet. Does not appear in decompensated heart failure. 3. Acute renal failure, likely prerenal secondary to over diuresis. Creatinine continues to improve with holding diuretics and gentle hydration. 4. Hypokalemia. 5. Thrombocytopenia. 6. Morbid obesity. 7. Chronic obstructive pulmonary disease, history of gastrointestinal bleed, hypertension, hyperlipidemia, hypothyroidism, obstructive sleep apnea, type 2 diabetes. RECOMMENDATIONS: 1. No further cardiac workup. No primary cardiac etiology suspected at this time. 2. Continue to hold diuretics and would recommend resuming at a lower dose when kidney function stabilizes, would probably avoid metolazone and would use a lower dose of the spironolactone. I am not sure if he needs the spironolactone [place], [place] PROGRESS NOTE NAME: ANABELLA MALIK UNIT #: [id number] ROOM: [facility] DOCTOR: VEE NGUYEN BIRTHDATE: [birth year] at all unless it is for his liver, as he tells me he may have some early cirrhosis. 3. Cardiology will sign off at this time. Please call with any questions. Dr. VEE NGUYEN MD CM:PNTRANS [phone] VEE NGUYEN 11/26/18 0124 interface
--- NOTE | ~2018-11-23 | DS ---
[place], [place] DISCHARGE SUMMARY NAME[id number] UNIT #: [id number] ROOM: 532 DOCTOR: KATALINA MARTINEZ MD BIRTHDATE: [birth year] DOS: 11/27/2018 The patient is very well known to us, 48 years old, was admitted to the hospital on 11/24/2018, discharged on 11/27/2018. DIAGNOSES: 1. Acute kidney injury from over diuresis and prerenal azotemia. 2. Morbid obesity with a large pannus with surgery as an outpatient. 3. Type 2 diabetes mellitus, insulin-dependent. 4. Chronic obstructive pulmonary disease. 5. Benign hypertension. 6. Hypothyroidism. 7. Mixed hyperlipidemia. 8. History of iron deficiency anemia. 9. History of chronic systolic congestive heart failure. HOSPITAL COURSE: This patient presented to the Emergency Room with complaints of weakness. He follows up with Dr. English as well as the [facility]. The [facility] had started him on metolazone, spironolactone as well as high dose of Bumex. He was found to be in acute kidney failure when he arrived with a BUN of 103, creatinine of 2.2. After admission, all his diuretics and metformin was discontinued, also all nephrotoxic meds were discontinued. Dr. Sanchez was consulted. Ultrasound of the kidneys was performed. The patient was placed on IV fluids. Kidney shows complex left renal cyst, which is increasing in size, most likely benign. Myoglobin was high. The patient with IV fluids continued to show improvement in the BUN and creatinine. The IV fluids have since been discontinued and the creatinine has come down to normal with a GFR of more than 60. Urine culture shows 25,000 colonies of Enterococcus faecalis, sensitive to penicillin. Blood culture shows no bacterial growth. At this time, the patient is stable. The plan is to discharge him to home today. He is advised to restart a lower dose of Bumex tomorrow of 2 mg daily. He was also placed on amoxicillin 500 t.i.d. for 7 days, loratadine 10 daily, iron 325 b.i.d., Protonix 40 b.i.d., insulin lispro 25 units subcutaneous before meals, carvedilol 3.125 b.i.d., Percocet 10 q. 6 p.r.n., pramipexole 1 mg t.i.d., bupropion 150 t.i.d., gabapentin 300 t.i.d., cyclobenzaprine 10 t.i.d., metformin 1000 at bedtime, insulin 65, Lantus 6:00 p.m. and Ozempic 1 tablet p.o. q. 6 hours p.r.n. His Lipitor, potassium, spironolactone, Bumex have all been discontinued. He is advised to restart the Bumex 2 mg daily starting tomorrow. Follow with Dr. English as an outpatient. [place], [place] DISCHARGE SUMMARY NAME: ANABELLA MALIK UNIT #: [id number] ROOM: [facility] DOCTOR: KATALINA MARTINEZ MD BIRTHDATE: [birth year] KATALINA MARTINEZ MD CM:RAHUL 1 1 KATALINA MARTINEZ MD 11/27/18941 interface
--- NOTE | ~2018-11-23 | WRIGHTHP ---
[place], [place] PATIENT HISTORY AND PHYSICAL EXAM NAME: ANABELLA MALIK [facility] #: [id number] UNIT #: [id number] ROOM: 532 DOCTOR: MIGUELANGEL HINTON MD BIRTHDATE: [birth year] DOS: 11/24/2018 HISTORY OF PRESENT ILLNESS: The patient is a 48-year-old gentleman with past medical history of: 1. Morbid obesity. 2. Chronic systolic type congestive heart failure. 3. Chronic obstructive pulmonary disease. 4. Type 2 diabetes mellitus, uncontrolled. 5. Obstructive sleep apnea. 6. Benign essential hypertension. 7. Iron-deficiency anemia. 8. Mixed hyperlipidemia. 9. Hypothyroidism. The patient presented to the Emergency Department with increased weakness. He says he could not even stand up and the patient was seen in the Emergency Department by Dr. Baeza and found to be in acute kidney failure. BUN and creatinine elevated to 103 and 2.27, potassium low at 3. The patient was admitted to a monitored bed and Nephrology consulted. No chest pains. Chronic shortness of breath, no other GI or urinary symptoms. The patient is being evaluated for many years at [place] for surgery to his anterior abdominal wall related to his obesity. REVIEW OF SYSTEMS: RESPIRATORY: Chronic shortness of breath. GASTROINTESTINAL: No nausea, vomiting, diarrhea, constipation. CARDIOVASCULAR SYSTEM: No chest pains or palpitations. FAMILY HISTORY: Noncontributory. HOME MEDICATIONS: Insulin, metformin, pramipexole, potassium, loratadine, gabapentin, iron, Flexeril, Coreg, Wellbutrin, allopurinol, levothyroxine, oxycodone. ALLERGIES: No known drug allergies. PHYSICAL EXAMINATION: GENERAL: Alert, oriented x 3, morbidly obese. Generalized weakness. VITAL SIGNS: Blood pressure 107/67, heart rate of 86 beats per minute, breathing 20 times per minute, temperature 98 degrees Fahrenheit. HEENT AND NECK: Extraocular movements are intact. Sclerae are anicteric. Oral mucosa is moist and clean. No obvious facial weakness. Neck is supple without any lymphadenopathy. No thyromegaly. No JVD. No carotid arterial bruits. LUNGS: Clear to auscultation. No wheezing. No rhonchi. CARDIOVASCULAR SYSTEM: Heart rate is regular in rate and rhythm. S1 and S2 normally audible. No significant murmur or any other abnormal cardiac sounds. ABDOMEN: Soft, nontender. No obvious organomegaly. Bowel sounds are present. No obvious herniation. EXTREMITIES: Chronic skin changes and stasis dermatitis in both lower extremities. [place], [place] PATIENT HISTORY AND PHYSICAL EXAM NAME: ANABELLA MALIK UNIT #: [id number] ROOM: [facility] DOCTOR: MIGUELANGEL HINTON MD BIRTHDATE: [birth year] CENTRAL NERVOUS SYSTEM: Alert and oriented x 3. Cranial nerves II-XII are intact. Speech is normal. The patient is able to move all extremities. Normal muscle strength. Deep tendon reflexes are equal on both sides. Plantars were downgoing. LABORATORY DATA: Urinalysis showing no significant signs of infection. BUN and creatinine 103/2.2, potassium level low at 3. Bilirubin high at 1.5, alkaline phosphatase elevated at 372. IMPRESSION: 1. The patient extreme and morbid obesity with poor long-term prognosis, working with dietary and physical therapy. 2. Generalized weakness, adult failure to thrive, which is chronic. The patient has increased weakness. 3. Uncontrolled type 2 diabetes mellitus. Blood sugars being monitored and ranging around 170. 4. Hypothyroidism, replaced with thyroid supplements. 5. Chronic obstructive pulmonary disease, managed with bronchodilators and corticosteroids. 6. Benign essential hypertension, treated and controlled. Blood pressure is staying normal. 7. Acute over chronic kidney failure. I will get Nephrology to follow. 8. Minimal elevation of troponin I levels. I will get a Cardiology opinion. MIGUELANGEL HINTON MD CM:HISPHYS:PATIENT HISTORY AND PHYSICAL EXAMINATION [id number] MIGUELANGEL HINTON MD 11/24/18 1240 interface
--- NOTE | ~2018-11-23 | EKG ---
[place], [place] ELECTROCARDIOGRAM REPORT NAME: ANABELLA MALIK UNIT #: [id number] ROOM: 532 DOCTOR: EMMA DRAFT REPORT BIRTHDATE: [birth year] [facility] Test Date: 2018-11-23 Test Time: 23:53:56 Pat Name: ANABELLA MALIK Department: Room: 532 Gender: M [employer] Director: : 1970 Requested By: JEFFREY OBREGON Order Number: [id number] Reading MD: René Dupont MD Measurements Intervals [place] Rate: 101 P: 15 WI: 153 QRS: -7 QRSD: 107 T: 159 QT: 339 QTc: 440 Interpretive Statements Sinus tachycardia Abnormal R-wave progression, early transition Abnormal T, consider ischemia, lateral leads Nonspecific ST \T\ T wave changes anterior leads Possible old inferoposterior infarct Electronically Signed On 11-24-2018 13:18:02 PDT by René Dupont MD CM:EKGRPT:ELECTROCARDIOGRAM REPORT [id number] JEFFREY MOTLEY DRAFT REPORT JEFFREY OBREGON DO
--- NOTE | ~2018-11-23 | PR ---
[place], [place] PROGRESS NOTE NAME[id number] UNIT #: [id number] ROOM: 532 DOCTOR: KATALINA MARTINEZ MD BIRTHDATE: [birth year] DOS: 11/25/2018 SUBJECTIVE: The patient this morning, resting comfortably in his bed, does not have any complaints. OBJECTIVE: VITAL SIGNS: Graphic trend shows a pressure 140/72, pulse of 82, respirations 12, temperature 98.6. LUNGS: Diminished breath sounds, but clear. HEART: Regular. ABDOMEN: Obese with large pannus. EXTREMITIES: No edema noticed today. LABORATORY DATA: Glucose was 221, BUN 76, creatinine 1.53. Sodium 143, potassium 3.1, chloride 104, bicarbonate 33. ASSESSMENT AND PLAN: 1. Acute kidney injury, possibly from excess of diuresis, was on multiple diuretics, which have been on hold. There was no evidence of volume overload right now. Continue IV fluids. Kidney functions are improving. The BUN and creatinine was 103 and 2.27 on admission and has come down to 76 and 1.53. 2. Hypokalemia. Supplementation will be ordered. 3. Type 2 diabetes mellitus, controlled blood sugar was 166. Last blood sugar was 166. 4. Adult failure to thrive with a recent fall checked myoglobin to rule out rhabdo. His kidney functions were absolutely normal in August 2018 and developed acute kidney injury over a month. Pannus removal to be arranged for at [facility] who has an appointment there in a few days. KATALINA MARTINEZ MD CM:PNTRANS [phone] KATALINA MARTINEZ MD 11/25/18 0813 interface
[~2018-11-23 22:32] MED LIST changes: -AMOXICILLIN500 M2 PO; -BUMETANIDE2 MG PO; -OZEMPIC1 MG/0.75 SQ; -PERCOCET 5-3251 EACH PO
[2018-11-23 22:33] VITALS: BP 104/70
--- NOTE | 2018-11-23 23:22 | NUR ---
Assisted into gown and skin inspected. Chronic open area to posterior scroyum that is oblong and very small. Several other areas of dry raised skin noted. No drainage noted to wound. Does have scant bleeding from a scabbed area where he knocked skin off while washing his lower abdomen.
[2018-11-23 23:29] LABS: HEMATOCRIT 43.2 % (42.0-52.0); HEMOGLOBIN 14.7 g/dl (14.0-18.0); MEAN CELL VOLUME 97.1 fl (80.0-94.0); MEAN PLATELET VOLUME 11.5 fl (9.6-12.3); PLATELET COUNT AUTOMATED 83 10*3/uL (130-400); RED BLOOD COUNT 4.45 10*6/uL (4.50-5.90); RED CELL DISTRI WIDTH 16.1 % (0-14.5); WHITE BLOOD COUNT 5.9 10*3/uL (4.8-10.8)
[2018-11-23 23:44] LABS: ALBUMIN 3.2 gm/dl (3.1-4.5); CREATININE 2.27 mg/dL (0.70-1.30); PHOSPHOROUS 4.3 mg/dL (2.5-4.9)
[2018-11-23 23:51] LABS: BASOPHILS 2 % (0-1); TOTAL CELLS COUNTED 100 #CELLS
--- NOTE | 2018-11-23 23:51 | NUR ---
ICE WATER PROVIDED PER VERBAL OKAY OF PHYSICIAN.
[2018-11-23 23:52] LABS: PLATELET SUFFICIENCY LOW (NORMAL)
[2018-11-24] VITALS (7 sets, daily range): BP systolic 95–134; BP diastolic 54–87
--- NOTE | 2018-11-24 00:20 | NUR ---
LAB CALLED WITH CRITICAL LACTIC ACID LEVEL OF 2.3. NOTIFIED.
--- NOTE | 2018-11-24 00:24 | NUR ---
UNABLE TO PROVIDE URINE AT THIS TIME. PREFERS NOT TO HAVE STRAIGHT CATH PERFOREMED DUE TO ISSUES SINCE LAST HAVING A LUCIA.
--- NOTE | 2018-11-24 00:57 | NUR ---
MEDICATED PER ORDERS AND UPDATED ON PLAN FOR ADMISSION. REQUESTING TO EAT THE REST OF HIS FAST FOOD. VARIOUS FAMILY REAMINS AT THE BEDSIDE.
--- NOTE | 2018-11-24 01:04 | NUR ---
SPOKE WITH ERIN REGARDING ETA. ARRANGING BARIATRIC BED. WILL CALL ONCE BARIATRIC BED IS SET UP.
--- NOTE | 2018-11-24 01:40 | NUR ---
FEELS PRESSURE LIKE HE NEEDS TO URINATE BUT IS UNABLE TO INITIATE A STREAM. SABRINA ENCARNACION IN TO OBTAIN SPCEIMEN VIA STRAIGHT CATH. PATIENT REPORTS HE AHS HAD THIS HAPPEN ONCE BEFORE AT [facility].
--- NOTE | 2018-11-24 01:45 | NUR ---
SPOKE WITH ERIN TO CONFIRM BED IS READY.
--- NOTE | 2018-11-24 01:50 | NUR ---
STRAIGHT CATH FOR 700 ML OF DARK URINE AND SPECIMENS SENT.
[2018-11-24] MEDS ORDERED: LANTUS SOL100 UNIT/1 SC ×3 (02:43→02:47)
--- NOTE | 2018-11-24 03:55 | NUR ---
PT ADMITTED TO ROOM 532 WITH ACUTE RENAL FAILURE. PT. A&OX3 ASSESSMENT CHARTED. PT ORIENTED TO ROOM AND CALL LIGHT. WILL CONTINUE TO MONITOR.
[2018-11-24] MEDS ORDERED: PERCOCET 5-3251 EACH PO (05:32)
[2018-11-24 06:57] LABS: BILIRUBIN NEGATIVE (NEGATIVE); BLOOD NEGATIVE (NEGATIVE); CLARITY CLEAR (CLEAR); COLOR YELLOW (YELLOW); GLUCOSE NEGATIVE (NEGATIVE); KETONE NEGATIVE (NEGATIVE); LEUKO ESTERASE NEGATIVE (NEGATIVE); NITRITE NEGATIVE (NEGATIVE); PH 5.5 (5.0-9.0)
[2018-11-24 07:23] LABS: BACTERIA 1+
[2018-11-24] MEDS ORDERED: OZEMPIC1 MG/0.75 SQ (12:02)
--- NOTE | 2018-11-24 12:33 | NUR ---
[facility] NOTIFIED OF CONSULT
--- NOTE | 2018-11-24 12:40 | NUR ---
ANAEBLLA MALIK [id number] Please refer to the physician's history and physical for past medical history, comorbid conditions, and allergies. Diagnosis: ACUTE RENAL FAILURE Leonidas Score: 12,HIGH RISK WOUND DESCRIPTIONS: Wound Number: 1 Location of the wound: scrotum Type of wound: Thickness: Partial Size: 1.3cm x 0.5cm x 0.1cm Tunneling: none Undermining: none Sinus Tract: none Presence of Exudate: Serous Amount: Light Color: Red Odor: None Periwound Skin Appearance: Normal Wound edges: approximated Pain (associated with wound): denied at time of assessment How does patient state this happened? patient unsure how this happened. Patient complains of dry skin to BLE. Dry flaky skin noted to BLE. No drainage erythema or open areas noted. Patient denied pain in BLE. Surface the patient is resting on: Rental SKIN PREVENTION RECOMMENDATION: 1. Pressure redistribution support surface as appropriate 2. Elevate heels 3. Remove boots/TEDS every shift and reapply 4. Head of bed 30 degrees as tolerated 5. Assess nutrition and hydration 6. Manage moisture 7. Avoid the use of containment devices while in bed 8. Use absorptive products on surfaces limit layers of linens on bed 9. Turn and reposition every 1-2 hours in bed and every 1 hour in chair as tolerated 10. Weight shifts every 15 minutes while up in chair 11. Offloading with pillows or device to keep heels elevated off bed 12. Monitor skin at least every shift 13. Inspect under medical devices twice a day WOUND TREATMENT RECOMMENDATIONS: Dressing change: Cleanse scrotum with soap and water. Pat dry and apply calazime every 8 hours and as needed. Aquaphor daily to BLE for dryness per patient request.
--- NOTE | 2018-11-24 12:40 | NUR ---
NOTIFIED OF CONSULT
[2018-11-24 13:35] LABS: CREATININE 1.85 mg/dL (0.70-1.30)
--- NOTE | 2018-11-24 20:00 | NUR ---
AAOX3 RESTING IN BED. VOICES NO C/O AT THIS TIME. CALL LIGHT WITHIN REACH.
--- NOTE | 2018-11-24 20:15 | NUR ---
URINE SPECIMENS SENT PER M.D. ORDERS.
[2018-11-24 20:18] LABS: URINE CREATININE RANDOM 20.2 mg/dL
[2018-11-25] VITALS: BP 140/72
--- NOTE | 2018-11-25 | NUR ---
RESTING IN BED WITH EYES CLOSED. RESPIRATIONS EASY & UNLABORED ON ROOM AIR. CALL LIGHT WITHIN REACH.
--- NOTE | 2018-11-25 06:00 | NUR ---
BLOOD SUGAR 205; LANTUS GIVEN PER EMAR. MEDICATED WITH PERCOCET FOR C/O PAIN.
[2018-11-25 06:31] LABS: CREATININE 1.53 mg/dL (0.70-1.30); POTASSIUM 3.1 mmol/L (3.5-5.1); TROPONIN I 0.018 ng/ml (<0.045)
[2018-11-25 06:57] LABS: BASO % 0.5 % (0.0-1.0); EOS # 0.1 10*3/uL (0.0-0.4); EOS % 1.5 % (1.0-4.0); HEMATOCRIT 43.9 % (42.0-52.0); HEMOGLOBIN 14.6 g/dl (14.0-18.0); LYMPH # 0.6 10*3/uL (1.3-4.4); LYMPH % 10.6 % (27.0-41.0); MEAN CORPUSCULAR HGB 32.6 pg (27.0-31.0); MEAN CORPUSCULAR HGB CONC 33.3 g/dl (33.0-37.0); MEAN PLATELET VOLUME 12.8 fl (9.6-12.3); MONO # 0.5 10*3/uL (0.1-1.0); MONO % 9.7 % (3.0-9.0); NEUT # 4.2 10*3/uL (2.3-7.9); NEUT % 76.1 % (47.0-73.0); PLATELET COUNT AUTOMATED 67 10*3/uL (130-400); RED BLOOD COUNT 4.48 10*6/uL (4.50-5.90); RED CELL DISTRI WIDTH 16.1 % (0-14.5); WHITE BLOOD COUNT 5.5 10*3/uL (4.8-10.8)
[2018-11-25 08:00] VITALS: BP 138/76
--- NOTE | 2018-11-25 09:00 | NUR ---
PHYSICAL THERAPY PATIENT REQUESTS NO PT EVAL TODAY: WILL ATTEMPT AGAIN 11/27/18. THANK YOU FOR REFERRAL GILDARDO BRANTLEY PT
[2018-11-25 12:00] VITALS: BP 100/64
[2018-11-25 16:00] VITALS: BP 116/75
[2018-11-25 20:00] VITALS: BP 107/72
--- NOTE | 2018-11-25 20:30 | NUR ---
RESTING IN BED ON RIGHT SIDE. IV FLUIDS INFUSING ORDERED; SITE ASYMPTOMATIC. PT. VOICES NO C/O AT THIS TIME; NO DISTRESS NOTED. CALL LIGHT WITHIN REACH.
--- NOTE | 2018-11-25 21:35 | NUR ---
MEDICATED WITH OXCODONE FOR C/O PAIN RATED A 9/10.
[2018-11-26] VITALS: BP 122/72
--- NOTE | 2018-11-26 02:00 | NUR ---
RESTING IN BED WITH EYES CLOSED; PAIN MEDICATION GIVEN EARLIER APPARENTLY EFFECTIVE.
--- NOTE | 2018-11-26 05:51 | NUR ---
MEDICATED WITH PERCOCET FOR C/O BACK PAIN.
--- NOTE | 2018-11-26 06:30 | NUR ---
IV started left forearm with #22 protective cath after 2 attempts. Site prepped with Chloroprep. Sterile dressing applied. Patient tolerated procedure well. IV infusing at 70 cc/hr. KATHRYN CHAUHAN
[2018-11-26 06:54] LABS: BASO % 0.6 % (0.0-1.0); EOS # 0.1 10*3/uL (0.0-0.4); EOS % 1.4 % (1.0-4.0); HEMATOCRIT 43.1 % (42.0-52.0); LYMPH # 0.7 10*3/uL (1.3-4.4); LYMPH % 14.2 % (27.0-41.0); MEAN CELL VOLUME 100.9 fl (80.0-94.0); MEAN CORPUSCULAR HGB 32.8 pg (27.0-31.0); MEAN CORPUSCULAR HGB CONC 32.5 g/dl (33.0-37.0); MEAN PLATELET VOLUME 11.4 fl (9.6-12.3); MONO # 0.5 10*3/uL (0.1-1.0); MONO % 11.1 % (3.0-9.0); NEUT # 3.4 10*3/uL (2.3-7.9); NEUT % 70.2 % (47.0-73.0); PLATELET COUNT AUTOMATED 61 10*3/uL (130-400); RED BLOOD COUNT 4.27 10*6/uL (4.50-5.90); RED CELL DISTRI WIDTH 16.5 % (0-14.5); WHITE BLOOD COUNT 4.9 10*3/uL (4.8-10.8)
--- NOTE | 2018-11-26 07:15 | NUR ---
ARRIVED ON SHIFT, INTRODUCED TO PATIENT, BEDSIDE REPORT RECEIVED, NO NEEDS VOICED, WHITE BOARD UPDATED.
[2018-11-26 07:23] LABS: BUN 47 mg/dl (7-24); CHLORIDE 109 mmol/L (98-107); POTASSIUM 3.5 mmol/L (3.5-5.1); SODIUM 146 mmol/L (136-145)
[2018-11-26 08:00] VITALS: BP 120/70
--- NOTE | 2018-11-26 11:38 | NUR ---
Shift chart check completed.
[2018-11-26 12:00] VITALS: BP 119/82
--- NOTE | 2018-11-26 14:47 | NUR ---
PATIENT C/O BACK PAIN 11/04 MEDICATED WITH OXYCODONE/DONI 5/
[2018-11-26 16:00] VITALS: BP 130/73
--- NOTE | 2018-11-26 17:34 | NUR ---
CALL PLACED TO DR. MARTINEZ REGARDING MEDICATIONS THAT WHERE SHOWN TO BE CONTINUED ON INITIAL MED REC, BUT PATIENT NOT RECEIVING. I WAS ADVISED BY DR. MARTINEZ TO MAKE POATIENTS NEUROTIN 300MG TID, THAT IS WHAT HE WAS TAKING AT HOME. ALL OTHER MEDICATIONS THAT ARE NOT CURRENTLY ON EMAR WILL BE ADDRESSED ON DISCHARGE, ALSO ORD FOR BMP IN AM.
[2018-11-26 20:00] VITALS: BP 110/66
[2018-11-27] VITALS: BP 107/63
--- NOTE | 2018-11-27 00:20 | NUR ---
24 HR. CHART CHECK COMPLETE.
[2018-11-27 06:59] LABS: CHLORIDE 111 mmol/L (98-107); CREATININE 1.06 mg/dL (0.70-1.30); POTASSIUM 3.5 mmol/L (3.5-5.1); SODIUM 145 mmol/L (136-145)
[2018-11-27 07:00] LABS: BUN 34 mg/dl (7-24)
[2018-11-27 08:00] VITALS: BP 110/72
[2018-11-27] MEDS ORDERED: BUMETANIDE2 MG PO (08:57)
[2018-11-27] MEDS ORDERED: AMOXICILLIN500 M2 PO (09:02)
--- NOTE | 2018-11-27 10:33 | NUR ---
PHYSICAL THERAPY Physical therapy evalution complete, 5E. Full evaluation/details to follow. Moderate complexity evaluation (81571) per chart review and evaluation. Patient reports that he is returning home this date. Recommend home health PT/Nursing at discharge. Thank you. Jazzmine Hinds, PT,DPT
--- NOTE | 2018-11-27 10:48 | NUR ---
PATIENT BEING DISCHARGED TO HOME.
--- NOTE | 2018-11-27 11:15 | NUR ---
PATIENT DISCHARGED TO HOME VIA WC WITH BELONGINGS BY SISTER.
== END 2018-11-27 11:15 | disposition home or self-care (01) | DRG 683 ==
LOC: ED 22:32 → EDHOLD 11-24 00:58 → 5E 11-24 01:01
PROVIDERS: Internal Medicine; Internal Medicine Nephrology; ADMIT Internal Medicine
DX: N17.9 Acute kidney failure, unspecified (principal); I13.0 Hypertensive heart and chronic kidney disease with heart failure and stage 1 through stage 4 chronic kidney disease, or unspecified chronic kidney disease; E87.2 Acidosis; I50.42 Chronic combined systolic (congestive) and diastolic (congestive) heart failure; Z68.43 Body mass index [BMI] 50.0-59.9, adult; E66.01 Morbid (severe) obesity due to excess calories; J44.9 Chronic obstructive pulmonary disease, unspecified; E03.9 Hypothyroidism, unspecified; E78.5 Hyperlipidemia, unspecified; G47.33 Obstructive sleep apnea (adult) (pediatric); E78.2 Mixed hyperlipidemia; R62.7 Adult failure to thrive; M1A.9XX0 Chronic gout, unspecified, without tophus (tophi); N18.9 Chronic kidney disease, unspecified; I95.9 Hypotension, unspecified; N28.1 Cyst of kidney, acquired; E11.22 Type 2 diabetes mellitus with diabetic chronic kidney disease; R79.89 Other specified abnormal findings of blood chemistry; E86.0 Dehydration; E87.6 Hypokalemia; D69.6 Thrombocytopenia, unspecified; T50.2X5A Adverse effect of carbonic-anhydrase inhibitors, benzothiadiazides and other diuretics, initial encounter; Y92.89 Other specified places as the place of occurrence of the external cause; Z79.4 Long term (current) use of insulin; Z91.81 History of falling; Z98.84 Bariatric surgery status; Z87.891 Personal history of nicotine dependence; Z83.3 Family history of diabetes mellitus; Z82.49 Family history of ischemic heart disease and other diseases of the circulatory system; Z83.49 Family history of other endocrine, nutritional and metabolic diseases; Z80.6 Family history of leukemia; Z83.79 Family history of other diseases of the digestive system; Z79.899 Other long term (current) drug therapy

== ENCOUNTER 2018-12-06 12:02 | Inpatient (IN) | payer MEDICARE ==
[~2018-12-06] VITALS: Ht 182.8 cm; Wt 175.2 kg
--- NOTE | ~2018-12-06 | PR ---
[place], [place] PROGRESS NOTE [facility] [id number] UNIT #: [id number] ROOM: 428 DOCTOR: KATALINA MARTINEZ MD BIRTHDATE: [birth year] DOS: 12/10/2018 SUBJECTIVE: The patient is about the same, does not have any new complaints. OBJECTIVE: VITAL SIGNS: Blood pressure is 133/67, pulse of 82, respirations 21, temperature 98.1. LUNGS: Clear. HEART: Regular. ABDOMEN: Obese, soft with a large pannus. EXTREMITIES: Without any edema. LABORATORY DATA: Urine culture shows ESBL Klebsiella oxytoca and Enterococcus faecalis. BMP this morning is within normal limits. Glucose 124, BUN 23, creatinine 0.84, sodium 143, potassium 3.6. ASSESSMENT AND PLAN: 1. Acute kidney injury, multifactorial, partly related to the infection. He has extended-spectrum beta-lactamase Klebsiella as well as Enterococcus. The patient will be placed on IV meropenem and a PICC line. 2. Acute kidney injury has resolved. The patient has been started on Bumex. 3. Cardiomyopathy with ejection fraction of 30%. He is not in any congestive heart failure. 4. Adult failure to thrive. He is awaiting placement to [facility]. He should continue with IV antibiotics also there. 5. Type 2 diabetes mellitus, insulin-dependent. Blood sugars controlled. His metformin was discontinued because of his repeated episodes of acute kidney injury. KATALINA MARTINEZ MD CM:PNTRANS [phone] KATALINA MARTINEZ MD 12/10/18 1035 interface
--- NOTE | ~2018-12-06 | DS ---
[place], [place] DISCHARGE SUMMARY [id number] #: [id number] ROOM: 428 DOCTOR: MIGUELANGEL HINTON MD BIRTHDATE: [birth year] DOS: 12/12/2018 DISCHARGE DIAGNOSES: 1. The patient transferred under my care today. 2. The patient with urinary tract infection with extended spectrum beta-lactamase. 3. Morbid obesity and adult failure to thrive. 4. Acute over chronic kidney failure, followed by Nephrology. 5. Type 2 diabetes mellitus, insulin-dependent. 6. Benign essential hypertension. 7. Mixed hyperlipidemia. 8. Hypothyroidism. 9. Benign essential hypertension. 10. Chronic obstructive pulmonary disease. 11. Abdominal pannus for panniculectomy at [facility]. 12. Obstructive sleep apnea. 13. Iron deficiency anemia. 14. Hypothyroidism. 15. Chronic systolic type congestive heart failure. HOSPITAL COURSE: The patient was admitted by Dr. Neetu Paris for urinary tract infection and the patient grew ESBL, which is to be continued to complete 1 week of treatment of IV meropenem, needs 5 more days of the treatment. Morbid obesity. The patient worked with physical therapy worked with Dietary. Hypothyroidism, replaced with supplements. Mixed hyperlipidemia, treated and followed with lab work. Benign essential hypertension, treated and controlled. Acute over chronic kidney disease, vasomotor type, followed by Dr. Sanchez, kidney function improved. Acute urinary retention. Sherman catheter was placed and the patient treated for ESBL. Urine culture results as mentioned above. Blood culture results negative, no leukocytosis. Hemoglobin 12.9. BUN and creatinine are normal now. DISCHARGE MANAGEMENT: Potassium chloride 20 mEq daily, Coreg 6.25 mg b.i.d., Bumex 2 mg daily in the morning and 1 mg in the evening, Flomax 0.4 mg daily, loratadine 10 mg a day, allopurinol 100 mg a day, Lantus insulin 65 units daily subcutaneous, lispro insulin 25 units a.c, levothyroxine 200 mcg daily, pramipexole 1 mg 3 times a day, ropinirole 2 mg 3 times a day, gabapentin 300 mg 3 times a day, doxepin 10 mg at bedtime, cyclobenzaprine 10 mg t.i.d., colchicine 0.6 mg b.i.d., Wellbutrin-XL 150 mg b.i.d., Protonix 40 mg b.i.d., iron 325 mg every other day, Lipitor 10 mg daily, Percocet 10/325 every 6 hours, IV meropenem 1 gram every 8 hours for 5 more days, then to be stopped. [place], [place] DISCHARGE SUMMARY NAME: ANABELLA MALIK UNIT #: [id number] ROOM: [facility] DOCTOR: MIGUELANGEL HINTON MD BIRTHDATE: [birth year] MIGUELANGEL HINTON MD CM:DISCHARG [phone] MIGUELANGEL HINTON MD 12/12/18 1112 interface
--- NOTE | ~2018-12-06 | CON ---
[place], [place] REPORT OF CONSULTATION NAME: ANABELLA MALIK UNIT #: [id number] ROOM: 428 DOCTOR: TERE BURNETT,GRACIE BIRTHDATE: [birth year] DOS: 12/11/2018 CARDIOLOGY CONSULTATION REASON FOR CONSULTATION: Nonsustained VT. HISTORY OF PRESENT ILLNESS: The patient is a 48-year-old gentleman with history of morbid obesity, cardiomyopathy, was admitted because he is unable to void. In the Emergency Room, he received a Sherman catheter and was admitted for acute renal failure and urinary tract infection. He noted to have nonsustained ventricular tachycardia, mostly asymptomatic, hence Cardiology was consulted. He denies any chest pain or palpitation. No dizziness or syncope. The patient's activity is very limited due to his super morbid obesity at home. Apparently, he was seen by Cardiology at [facility] last week and advised to restart his oral diuretics. He has history of cardiomyopathy, details are unknown. Apparently, the patient had a stress test recently. The patient's mother was at bedside who helped in his history. He denies any chest pain, palpitations or syncope. No PND, no orthopnea. His activities are limited due to super morbid obesity. The patient needs a stent for his portal hypertension and also surgery for removal of pannus in the abdominal wall. REVIEW OF SYSTEMS: Review of 10 systems are limited, but negative except as described above. PAST MEDICAL HISTORY: 1. Super morbid obesity. 2. History of cardiomyopathy, details unknown. 3. Hypertension. 4. Diabetes. 5. History of gastric bypass surgery. 6. Dyslipidemia. 7. History of gastrointestinal bleed. 8. Chronic obstructive pulmonary disease. PAST SURGICAL HISTORY: History of gastric banding, Pricilla-en-Y gastric bypass and tonsillectomy. MEDICATIONS: Reviewed. ALLERGIES: Reviewed. SOCIAL HISTORY: The patient does not drink, does not use illicit drugs. Former smoker, quit 30 years ago. FAMILY HISTORY: Mother has heart failure, diabetes. Father after his gallbladder surgery, history of hypertension. PHYSICAL EXAMINATION: VITAL SIGNS: Blood pressure 124/76, pulse 79, respiratory rate 20, weight 180 kilos, BMI 53.9. [place], [place] REPORT OF CONSULTATION NAME: ANABELLA MALIK UNIT #: [id number] ROOM: [facility] DOCTOR: TERE BURNETT,GRACIE BIRTHDATE: [birth year] GENERAL: Alert, comfortable, in no acute distress. HEENT: Pupils are round and equal. No jaundice. Tongue was moist and pharynx clear. NECK: Thick, unable to assess JVD, no carotid bruit. CHEST: Symmetrical, nontender. LUNGS: A few scattered rhonchi, but diminished at bases. ABDOMEN: Morbidly obese. Bowel sounds normal. Unable to palpate any masses. The patient has a large pannus in the lower abdominal wall. EXTREMITIES: Showed edema. Distal pulses are fair. SKIN: Warm and dry. No cyanosis, no clubbing. RECTAL: Deferred. GENITOURINARY: Deferred. NEUROLOGIC: Alert with no focal neurologic deficit. REVIEW OF THE DIAGNOSTIC TESTS: EKG shows sinus rhythm with normal QTc interval. CBC, chemistry reviewed. His creatinine on admission was 1.9 and currently 0.84. His magnesium is 2.3 on 12/06/2018. Potassium 3.6. Rhythm strips reviewed. Brief wide complex tachycardia, appears to be nonsustained ventricular tachycardia. IMPRESSION: 1. Nonsustained ventricular tachycardia. 2. History of cardiomyopathy, details unknown. EF about 35% per one of the help desk consultant notes. 3. Acute renal failure, improved. 4. Super morbid obesity with history of gastric bypass. 5. Urinary tract infection. 6. Hypertension. 7. Diabetes type 2. 8. Thrombocytopenia. 9. Urinary tract infection. 10. Elevated liver function tests. 11. Portal hypertension. RECOMMENDATIONS: 1. Increase beta blockers, Coreg to 6.25 mg twice a day and monitor blood pressure and heart rates. 2. Give potassium chloride 20 mEq and keep his potassium above 4. 3. Check his magnesium levels. Magnesium levels are 2.3 on 12/06/2018. 4. Get records from [facility]. If the patient develops sustained ventricular tachycardia, we will start IV amiodarone and consider transferring to a tertiary care hospital ____ [facility] or [facility] in [place]. His prognosis is guarded due to his multiple comorbid conditions. The above recommendation discussed with the patient and his mom, who is at bedside and all questions were answered. [place], [place] REPORT OF CONSULTATION NAME: ANABELLA MALIK UNIT #: [id number] ROOM: [facility] DOCTOR: TERE BURNETT,GRACIE BIRTHDATE: [birth year] Based on his reports from [place], I would add DONI inhibitors and spironolactone as his blood pressure and renal function tolerates. GRACIE CARRANZA MD CM:CONSTR:REPORT OF CONSULTATION [id number] 12/12/18 2203 interface
--- NOTE | ~2018-12-06 | WRIGHTHP ---
[place], [place] PATIENT HISTORY AND PHYSICAL EXAM NAME: ANABELLA MALIK [facility] #: [id number] UNIT #: [id number] ROOM: 428 DOCTOR: KATALINA MARTINEZ MD BIRTHDATE: [birth year] DOS: 12/07/2018 HISTORY OF PRESENT ILLNESS: The patient is 48 years old, well known to us, was brought in because he was unable to void. He was seen in the Emergency Room, a Sherman catheter was placed. The patient states that he has had increasing difficulty with dysuria and slow flow for the last several weeks. He denied having any chest pains, palpitations, does not have any fever or chills, does not have any abdominal pain, nausea, emesis. He is still in the process of getting the pannus removal as well as stent placement for portal hypertension. He was also seen by Cardiology in [place] on 12/05/2018 and he was advised to restart all his oral diuretics, which included Bumex, spironolactone and metolazone, which were discontinued during the last admission for acute kidney injury, which he has not started yet. He denies having any fever or chills. PAST MEDICAL HISTORY: Significant for: 1. Recent hospitalization for acute kidney injury from over diuresis and prerenal azotemia. 2. Morbid obesity with a BMI of more than 50. 3. Abdominal pannus for panniculectomy. 4. Type 2 diabetes mellitus, insulin-dependent. 5. COPD. 6. Benign hypertension. 7. Hypothyroidism. 8. Mixed hyperlipidemia. Recent urine culture showing 25,000 colonies of Enterococcus faecalis, for which he was on penicillin upon discharge. SOCIAL HISTORY: Nonsmoker, does not use any alcohol. PHYSICAL EXAMINATION: GENERAL: He is awake and alert and oriented. VITAL SIGNS: Blood pressure is 103/65, pulse of 83, respirations 18, temperature 98.1. LUNGS: Diminished breath sounds. No wheezes, rales or rhonchi heard. HEART: Regular. ABDOMEN: Obese, soft with a large pannus extending way down into the lower legs. EXTREMITIES: Without any edema. LABORATORY DATA: At the time of admission, urinalysis reflex for culture. Chest x-ray, hypoexpanded lung newton. Lactic acid 2.2. Comprehensive glucose 147, BUN 46, creatinine 1.91, sodium 139, potassium 3.6, chloride 103, bicarbonate 27. SGOT 83, SGPT 110, alkaline phosphatase 389, lipase 117. C-reactive protein 0.53. WBC count is 6.1, hemoglobin 13.9, hematocrit 42.6. ASSESSMENT AND PLAN: 1. Acute urinary retention. The patient has had some prostatic symptoms recently. We will start him on Flomax. Sherman catheter was is in place and is draining jitendra colored urine. We will send the urine for culture. Rule out [place], [place] PATIENT HISTORY AND PHYSICAL EXAM NAME: ANABELLA MALIK UNIT #: [id number] ROOM: [facility] DOCTOR: KATALINA MARTINEZ MD BIRTHDATE: [birth year] urinary tract infection, especially since he had Enterococcus faecalis in the recent urine. 2. Acute kidney disease, possibly from multifactorial. His diuretics will be on hold and we will also discontinue metformin, place the patient on intravenous fluids. Dr. Sanchez has been consulted and repeat laboratories again in the morning. 3. Type 2 diabetes mellitus, insulin-dependent. We will discontinue metformin because of worsening renal functions. 4. Benign hypertension, controlled. No evidence of congestive heart failure, no reason for diuretics at this present. KATALINA MARTINEZ MD CM:HISPHYS:PATIENT HISTORY AND PHYSICAL EXAMINATION 9 6 KATALINA MARTINEZ MD 12/07/18925 interface
--- NOTE | ~2018-12-06 | EKG ---
[place], [place] ELECTROCARDIOGRAM REPORT NAME: ANABELLA MALIK UNIT #: [id number] ROOM: 428 DOCTOR: EMMA DRAFT REPORT BIRTHDATE: [birth year] [facility] Test Date: 2018-12-11 Test Time: 14:40:05 Pat Name: ANABELLA MALIK Department: Room: [facility] 1 Gender: M Housing Management Representative: Michelle Scott : 1970 Requested By: KATALINA MARTINEZ Order Number: [id number] Reading MD: Jocelynn Coy Measurements Intervals [place] Rate: 91 P: 25 NE: 156 QRS: -2 QRSD: 102 T: 59 QT: 345 QTc: 425 Interpretive Statements Sinus rhythm Low voltage, precordial leads Abnormal R-wave progression, early transition Borderline T wave abnormalities Baseline wander in lead(s) V2 Compared to ECG 12/06/2018 13:37:51 No significant changes Electronically Signed On 12-13-2018 8:04:16 PDT by Jocelynn Coy CM:EKGRPT:ELECTROCARDIOGRAM REPORT [id number] KATALINA CARTER DRAFT REPORT KATALINA MARTINEZ MD
--- NOTE | ~2018-12-06 | PR ---
[place], [place] PROGRESS NOTE NAME: ANABELLA MALIK UNIT #: [id number] ROOM: 428 DOCTOR: KATALINA MARTINEZ MD BIRTHDATE: [birth year] DOS: SUBJECTIVE: The patient is resting, is not having any complaints. OBJECTIVE: VITAL SIGNS: Blood pressure is 110/60, pulse of 85, respirations 20, temperature 98.6. LUNGS: Clear. HEART: Regular. ABDOMEN: Obese with a large pannus. EXTREMITIES: Without any edema. LABORATORY DATA: Blood cultures, no bacterial growth. Urine culture is still no identification, no sensitivities yet, more than 100,000 gram-negative bacteria. CT of the abdomen and pelvis shows benign cyst, no mention of prostatic enlargement. No labs available yet. Yesterday's labs showed a BUN of 30, creatinine of 1.06, which is an improvement from the day before. ASSESSMENT AND PLAN: 1. Acute kidney injury, possibly a combination of diuretics as well as urinary tract infection. The patient is on IV antibiotics. Await the culture results. Since his kidney functions have improved, IV fluids have been discontinued. 2. Cardiomyopathy with ejection fraction of 35%. We will restart a low dose of diuretics. 3. Renal cyst, benign on CT scan of the abdomen. 4. Adult failure to thrive. The patient has decided now that he would go to [place]. Social service has been consulted. KATALINA MARTINEZ MD CM:PNTRANS 8 KATALINA MARTINEZ MD 12/09/18 0638 interface
--- NOTE | ~2018-12-06 | PR ---
[place], [place] PROGRESS NOTE NAME: ANABELLA MALIK UNIT #: [id number] ROOM: 428 DOCTOR: KATALINA MARTINEZ MD BIRTHDATE: [birth year] DOS: 12/08/2018 SUBJECTIVE: The patient is about the same, does not have any new complaints today. OBJECTIVE: VITAL SIGNS: Graphic trend shows a pressure 112/51, pulse of 89, respirations 20, temperature 97.5. LUNGS: Clear. HEART: Regular. ABDOMEN: Obese, soft, nontender. EXTREMITIES: Without any edema. The last 24 hours urine output. Intake and output is negative balance with 10 mL about 1350 during the night. ASSESSMENT AND PLAN: 1. Acute kidney injury. Kidney functions are not available this morning. Labs are pending. 2. Renal cyst. We will do a CT of the abdomen and pelvis to figure out whether he has prostatic enlargement causing acute retention of urine as well as further information on the renal cyst that was seen on the ultrasound. 3. Urinary tract infection with gram-negative bacteria, identification is not available. 4. Type 2 diabetes mellitus, insulin-dependent, controlled. 5. History of cardiomyopathy on high dose of diuretics on hold right now. We will discontinue IV fluids this morning. Check labs again tomorrow. Hopefully, by then we should have the results of the urine culture, should be able to go home tomorrow. KATALINA MARTINEZ MD CM:PNTRANS 4 04 KATALINA MARTINEZ MD 12/08/182102 interface
--- NOTE | ~2018-12-06 | EKG ---
[place], [place] ELECTROCARDIOGRAM REPORT NAME: ANABELLA MALIK UNIT #: [id number] ROOM: 428 DOCTOR: EMMA DRAFT REPORT BIRTHDATE: [birth year] [facility] Test Date: 2018-12-06 Test Time: 13:37:51 Pat Name: ANABELLA MALIK Department: Room: [facility] Gender: M Automobile Mechanic Helper: : 1970 Requested By: VIVIAN SAENZ Order Number: [id number] Reading MD: René Dupont MD Measurements Intervals [place] Rate: 87 P: 37 SD: 159 QRS: -3 QRSD: 105 T: 104 QT: 386 QTc: 465 Interpretive Statements Sinus rhythm Low voltage, precordial leads Abnormal R-wave progression, early transition Nonspecific T abnormalities, lateral leads Electronically Signed On 12-07-2018 4:29:00 PDT by René Dupont MD CM:EKGRPT:ELECTROCARDIOGRAM REPORT [id number] VIVIAN CARTER DRAFT REPORT VIVIAN LEGGETT
--- NOTE | ~2018-12-06 | PR ---
[place], [place] PROGRESS NOTE NAME: ANABELLA MALIK UNIT #: [id number] ROOM: 428 DOCTOR: GRACIE CARRANZA MD BIRTHDATE: [birth year] DOS: 12/12/2018 CARDIOLOGY PROGRESS NOTE REASON FOR VISIT: Nonsustained V-tach induced cardiomyopathy. HISTORY OF PRESENT ILLNESS: The patient denies any chest pain, palpitation or dizziness. No PND. He is anticipating discharge today. No chest pain. No cough or hemoptysis. REVIEW OF SYSTEMS: Review of 8 systems negative except as mentioned above. PHYSICAL EXAMINATION: VITAL SIGNS: Blood pressure 121/71, pulse 82, respiratory rate 18, weight 175 kilos, BMI 52. RHYTHM STRIPS: The patient in sinus rhythm. GENERAL: Alert, comfortable, in no acute distress. HEAD AND NECK: Pupils are round and equal. No jaundice. CHEST: Nontender. LUNGS: Have few scattered rhonchi, but good air entry anteriorly and laterally. HEART: Regular rhythm. No S3. Grade 1/6 systolic murmur. ABDOMEN: Morbidly obese. Bowel sounds normal. EXTREMITIES: Showed trace edema. Distal pulses palpable. SKIN: Warm and dry. No cyanosis, no clubbing. RECTAL: Deferred. GENITOURINARY: Deferred. MEDICATIONS AND LABORATORY DATA: Reviewed. IMPRESSION: 1. Nonsustained ventricular tachycardia, no further recurrence. 2. History of cardiomyopathy. 3. Super morbid obesity. 4. Portal hypertension. 5. Acute renal failure, resolved. 6. Urinary tract infection. RECOMMENDATIONS: He is tolerating increased dose of Coreg. Add low dose DONI inhibitors, lisinopril 2.5 mg once daily for his cardiomyopathy and monitor kidney function, blood pressure. His records from [facility] are still pending. No family at bedside at the time of my examination. If the patient was discharged today, he will follow with his mechanical shovel operator at [facility], and also, he is anticipating a stent for his portal hypertension and also resection of a large pannus of the abdominal wall. [place], [place] PROGRESS NOTE NAME: ANABELLA MALIK UNIT #: [id number] ROOM: 428 DOCTOR: GRACIE CARRANZA MD BIRTHDATE: [birth year] GRACIE CARRANZA MD CM:PNTRANS 56 [id number] GRACIE CARRANZA MD 12/13/18 0713 interface
[~2018-12-06 12:02] MED LIST changes: +AMOXICILLIN500 M2 PO; +BUMETANIDE2 MG PO; +OZEMPIC1 MG/0.75 SQ; +PERCOCET 5-3251 EACH PO
[2018-12-06 12:03] VITALS: BP 110/71
[2018-12-06 13:38] LABS: BILIRUBIN NEGATIVE (NEGATIVE); BLOOD NEGATIVE (NEGATIVE); CLARITY CLOUDY (CLEAR); COLOR YELLOW (YELLOW); GLUCOSE NEGATIVE (NEGATIVE); KETONE NEGATIVE (NEGATIVE); LEUKO ESTERASE 2+ (NEGATIVE); NITRITE NEGATIVE (NEGATIVE); SPECIFIC GRAVITY 1.025 (1.005-1.030); UROBILINOGEN 0.2 E.U./dl (0.2-1.0)
--- NOTE | 2018-12-06 13:39 | NUR ---
WHILE ATTEMPTING TO ASSESS SKIN PT UNABLE TO TOLERATE LYING SUPINE FOR GENITAL EXAM. PT HAS VERY LARGE PANNUS, VERY HEAVY, CELLULITIC IN APPEARANCE.
[2018-12-06 13:46] LABS: BACTERIA 3+; EPITHELIAL CELLS 20-30; WBC TNTC wbc/hpf (0-5)
[2018-12-06 13:49] LABS: HEMATOCRIT 42.6 % (42.0-52.0); HEMOGLOBIN 13.9 g/dl (14.0-18.0); MEAN CELL VOLUME 100.7 fl (80.0-94.0); MEAN CORPUSCULAR HGB 32.9 pg (27.0-31.0); MEAN CORPUSCULAR HGB CONC 32.6 g/dl (33.0-37.0); MEAN PLATELET VOLUME 11.5 fl (9.6-12.3); PLATELET COUNT AUTOMATED 97 10*3/uL (130-400); RED BLOOD COUNT 4.23 10*6/uL (4.50-5.90); RED CELL DISTRI WIDTH 17.5 % (0-14.5); WHITE BLOOD COUNT 6.1 10*3/uL (4.8-10.8)
[2018-12-06 14:04] LABS: ALBUMIN 3.3 gm/dl (3.1-4.5); ALKALINE PHOSPHATASE 389 U/L (45-117); BUN 46 mg/dl (7-24); CHLORIDE 103 mmol/L (98-107); CREATININE 1.91 mg/dL (0.70-1.30); LIPASE 117 U/L (73-393); POTASSIUM 3.6 mmol/L (3.5-5.1); SGOT/AST 83 IU/L (3-35); SGPT/ALT 110 U/L (12-78); SODIUM 139 mmol/L (136-145); TOTAL PROTEIN 7.2 gm/dL (6.4-8.2)
[2018-12-06 14:05] LABS: TROPONIN I < 0.015 ng/ml (<0.045)
--- NOTE | 2018-12-06 14:05 | NUR ---
LA 2.2 Anderson SAENZ NOTIFIED
[2018-12-06 14:10] LABS: ACT PARTIAL THROMBO TIME 22.4 SECONDS (20.0-32.1); INTERNATIONAL NORM RATIO 0.9 (2.0-3.5)
[2018-12-06 14:16] LABS: BASOPHILS 1 % (0-1); PLATELET SUFFICIENCY NORMAL (NORMAL); TOTAL CELLS COUNTED 100 #CELLS
[2018-12-06 15:19] VITALS: BP 118/72; BP 118/721
--- NOTE | 2018-12-06 16:18 | NUR ---
A 48, admitted to , under the services of KATALINA Mohr MD with a diagnosis of UTI, ACUTE RENAL FAILURE, URINARY RETENTION. Chief complaint is UTI. Patient arrived via bed from ER. Monitor applied. Initial assessment completed. Vital signs taken and recorded. KATALINA MOHR MD notified of admission to the unit. Orders received. See assessment for past medical history, medications and allergies. Patient and/or family oriented to unit. [facility] visitation policy reviewed. Clothing/patient valuable form completed. SANJIV FAITH
[2018-12-06 16:45] VITALS: BP 114/74
[2018-12-06] MEDS ORDERED: GLUCOPHAGE1000 MG PO (17:17)
[2018-12-06] MEDS ORDERED: OYSCO 500-VIT1 EACH PO (17:18)
[2018-12-06] MEDS ORDERED: ALDACTONE100 MG PO (17:23)
[2018-12-06] MEDS ORDERED: COLCHICINE0.6 M1 PO (17:33)
[2018-12-06] MEDS ORDERED: DOXEPIN HCL10 MG PO (17:34)
[2018-12-06] MEDS ORDERED: BUMETANIDE2 MG PO (17:35)
[2018-12-06] MEDS ORDERED: ROPINIROLE HYDRO2 M2 PO (17:35)
[2018-12-06] MEDS ORDERED: Zaroxolyn,Diul2.5 MG PO (17:36)
[2018-12-06] MEDS ORDERED: ATORVASTATIN CA10 M1 PO (17:36)
[2018-12-06] MEDS ORDERED: SILVADENE20 GM T (17:38)
[2018-12-06] MEDS ORDERED: KLOR-CON M2020 ME1 PO (17:39)
[2018-12-06 20:00] VITALS: BP 114/69
[2018-12-07] VITALS: BP 103/65
--- NOTE | 2018-12-07 03:42 | NUR ---
PATIENT MEDICATED WITH PERCOCET PER PRN ORDER FOR C/O LOWER BACK PAIN. RATED PAIN A 9/10 WITH 10 BEING THE WORST. SEE EMAR.REINFORCED USE OF CALL LIGHT.
--- NOTE | 2018-12-07 03:52 | NUR ---
ANABELLA MALIK [id number] Please refer to the physician's history and physical for past medical history, comorbid conditions, and allergies. Diagnosis: UTI, ACUTE RENAL FAILURE, URINARY RETENTION, Leonidas Score: 14,MODERATE RISK WOUND DESCRIPTIONS: Wound Number: 1 Patient has darkened hard tissue noted to abdomen. No drainage noted at time of assessment. Patient has several areas of scar tissue noted. Patient states that he applies powder under his abdomen and silvadene to his legs. Patient complains of dry skin to BLE. Dry flaky skin noted to BLE. No drainage erythema or open areas noted. Patient denied pain in BLE. Surface the patient is resting on: Rental bed Rental SKIN PREVENTION RECOMMENDATION: 1. Pressure redistribution support surface as appropriate 2. Elevate heels 3. Remove boots/TEDS every shift and reapply 4. Head of bed 30 degrees as tolerated 5. Assess nutrition and hydration 6. Manage moisture 7. Avoid the use of containment devices while in bed 8. Use absorptive products on surfaces limit layers of linens on bed 9. Turn and reposition every 1-2 hours in bed and every 1 hour in chair as tolerated 10. Weight shifts every 15 minutes while up in chair 11. Offloading with pillows or device to keep heels elevated off bed 12. Monitor skin at least every shift 13. Inspect under medical devices twice a day WOUND TREATMENT RECOMMENDATIONS: Cleanse bilateral lower legs and abdomen with soap and water and apply aquaphor ointment BID. D/C silvadene Patient is requesting to continue using the zesorb powder that he currently uses at home for under his abdominal folds.
--- NOTE | 2018-12-07 04:55 | NUR ---
Recommend follow up for wound care in outpatient setting patient refused at this time.
[2018-12-07 06:54] LABS: BASO % 0.8 % (0.0-1.0); EOS # 0.1 10*3/uL (0.0-0.4); HEMATOCRIT 39.6 % (42.0-52.0); HEMOGLOBIN 12.9 g/dl (14.0-18.0); LYMPH # 0.7 10*3/uL (1.3-4.4); LYMPH % 14.3 % (27.0-41.0); MEAN CELL VOLUME 101.8 fl (80.0-94.0); MEAN CORPUSCULAR HGB 33.2 pg (27.0-31.0); MEAN CORPUSCULAR HGB CONC 32.6 g/dl (33.0-37.0); MEAN PLATELET VOLUME 11.7 fl (9.6-12.3); MONO # 0.4 10*3/uL (0.1-1.0); MONO % 8.5 % (3.0-9.0); NEUT # 3.6 10*3/uL (2.3-7.9); NEUT % 71.8 % (47.0-73.0); PLATELET COUNT AUTOMATED 65 10*3/uL (130-400); RED BLOOD COUNT 3.89 10*6/uL (4.50-5.90); RED CELL DISTRI WIDTH 17.2 % (0-14.5)
[2018-12-07 07:26] LABS: CHLORIDE 108 mmol/L (98-107); POTASSIUM 3.6 mmol/L (3.5-5.1); SODIUM 143 mmol/L (136-145)
[2018-12-07 07:35] LABS: BUN 41 mg/dl (7-24); CREATININE 1.37 mg/dL (0.70-1.30)
[2018-12-07 08:00] VITALS: BP 120/70
--- NOTE | 2018-12-07 08:59 | NUR ---
PHYSICAL THERAPY Nursing screen received and chart reviewed. Please order PT evaluation if decline in functional mobility presents. Thank you, Yumiko Gonsalez, SPT Jazzmine Hinds,PT,DPT
--- NOTE | 2018-12-07 10:30 | NUR ---
Legislative Director in to talk to patient. Patient states lives at home alone with his family checking on him and helping around his house. There is 1 step in the home. Physician: Dr. Alf English Pharmacy: [facility] Home health services: has had visiting physicians and home health previously. He is unsure of the name of the home health company but does not want them again. Patient's level of ADLs: MODERATE ASSIST Patient has working utilities: yes DME: walker, wheelchair, BSC, lift chair, O2 @ 3L bipap at HS, nebulizer, O2 supplier [employer] Follow-up physician's appointment after d/c: he prefers to make his own follow up appt after discharge Does patient want to access PORTAL?: no Discharge plan discussed with patient. He lives at home alone with his family checking in on him and helping him around the house. He is independent in his ADLs and can ambulate with a walker or uses his wheelchair. Discussed short term SNF if needed and he is agreeable. When given a list of facilities he chose [facility] in [place] as he has been there in the past. Discussed home health care services and he is agreeable if needed. When provided with a list of agencies he chose [facility]. associate financial planner notified. He states he has been working with a [facility] pillowcase cutter Orin, regarding having his doors widened in his home to accommodate his wheelchair, have his roof patched, and rails put into his bathroom. Discharge plan undecided at this time. REMA JONAS
[2018-12-07 12:00] VITALS: BP 115/72
--- NOTE | 2018-12-07 15:03 | NUR ---
Occupational THerapy evaluation completed on 4 with full eval to follow. Precautions include obesity, meehan catheter, IV UE, moderate complexity via chart review, testing and evaluation. Recommend OT per POC and SNF to enable return home alone at PLOF independence. Thank you. Wolfgang Ann OTR/L
--- NOTE | 2018-12-07 15:03 | NUR ---
PHYSICAL THERAPY Physical therapy evaluation complete, 4E. Full evaluation/details to follow. Moderate complexity PT evaluation (70385) per chart review and evaluation. PT to progress with bed mobility, transfers, and gait per POC. Recommend SNF at discharge. Thank you. Jazzmine Hinds,PT,DPT
--- NOTE | 2018-12-07 15:03 | NUR ---
Occupational Therapy evaluation completed on 4 with full eval to follow. Precautions include obesity, IV UE,meehan catheter, moderate complexity level 13999 via chart review, testing and evaluation. Recommend OT per pOC and SNF to enable return home alone at PLOF independence. Thank you. Lucia Ann OTR/L
[2018-12-07 16:00] VITALS: BP 118/67
--- NOTE | 2018-12-07 16:20 | NUR ---
RESTING IN BED. REPOSITIONED SELF. LUCIA DISCONTINUED. PT TOLERATED WITH NO PROBLEM. CALL LIGHT IN REACH.
--- NOTE | 2018-12-07 17:13 | NUR ---
Nursing screen received and occupational therapy referral received. Thank you. Lucia Ann OTR/L
--- NOTE | 2018-12-07 18:16 | NUR ---
PT C/O BACK PAIN, RATES PAIN 8 OR 9 ON PAIN SCALE 0-10. MEDICATED WITH PERCOCET PO PER PRN ORDER, SEE EMAR. IVF INFUSING WITH NO PROBLEM. CALL LIGHT IN REACH.
[2018-12-07 20:00] VITALS: BP 128/72
[2018-12-08] VITALS: BP 112/51
--- NOTE | 2018-12-08 04:14 | NUR ---
PATIENT MEDICATED WITH PERCOCET PER PRN ORDER FORC/O LOWER BACK PAIN. RATED PAIN A 9/10 WITH 10 BEING THE WORST. SEE EMAR. REINFORCED USE OF CALL LIGHT.
[2018-12-08 09:34] VITALS: BP 118/64
[2018-12-08 09:57] LABS: BUN 30 mg/dl (7-24); CHLORIDE 110 mmol/L (98-107); CREATININE 1.06 mg/dL (0.70-1.30); POTASSIUM 3.5 mmol/L (3.5-5.1); SODIUM 144 mmol/L (136-145)
--- NOTE | 2018-12-08 10:38 | NUR ---
Surface Hydrologist in to see patient. Discussed therapy suggesting SNF on discharge. He would like to speak to his mother before he makes a decision. He would be agreeable to [facility] in [place] if his family agrees. assortment planner notified. Patient would like CM to call unemployment insurance director. Her name is Orin at [phone] x [phone]. Attempted to reach Orin x 2 with no success as the line is busy. Will try again at a later time. Discharge plan undecided at this time.
--- NOTE | 2018-12-08 10:40 | NUR ---
Patient requesting a referral to the [place]. Contacted facility and faxed referral. waiting on review/acceptance. Will require precert.
[2018-12-08 12:00] VITALS: BP 126/76
--- NOTE | 2018-12-08 12:03 | NUR ---
Nutritional Support Services: Pt stated he is aware he doesn't eat well, but is unwilling to make changes. He states he doesn't consume F/V, whole grains, lean meats etc. because he doesn't like them and he also has trouble consuming certain foods dt his edentulism. I recommended he try these types of foods prepared different ways in order to aquire a taste for them. He states he mainly consumed fried, processed, sugary foods. He's received weight loss diet plans in the past but is noncomplient. He stated he didn't want further written information, so I provided verbal education and reinforcement on the education he's received in the past. I recommended switching to ADA 2,000 calorie diet for portion/calorie/carbohydrate control and he's agreed. Recommend switching to ADA 2,000 calorie diet from no concentrated sweets. This will also aid in wound healing dt diet providing adequate protein.
--- NOTE | 2018-12-08 13:15 | NUR ---
PHYSICAL THERAPY CO-SIGN I approve of the Physical Therapy notes written above. REMA HENSON PT,DPT
--- NOTE | 2018-12-08 13:44 | NUR ---
Called to room to speak to patient regarding short term SNF at [facility] and doctor's appointment in [place]. Informed patient he can make a [place] doctor's appt but [facility] will not transport, he will need to find his own transportation. Patient verbalized an understanding and stated his sister would transport to his doctor's appointment. He spoke to his mother and she is agreeable for him to go to [facility] for therapy; therefore, he is agreeable to go to [facility]. environmental planner notified.
--- NOTE | 2018-12-08 14:10 | NUR ---
PHYSICAL THERAPY Patient seen this pm 1:1 for therapy visit and was supine in bed upon therapist arrival. Patient voices no new c/o's and transfers supine to sit EOB with MIN A. Patient tolerated static EOB sit x several minutes to collect himself and performed several sit to stand transfers from slightly elevated bed surface, MOD A, use of wh walker standing support. Patient tolerates approx 2 minutes static stand prior to quick onset of fatigue. Patient was very exhausted following third trial of static stand and required extra assist to return to supine in bed, MAX A x 4. Patient remained in bed with call light, tray table and telephone. Will continue per POC as tolerated, total treatment time 18 minutes. Adolfo Saul, CUSTOMER SERVICE RECEPTIONIST
--- NOTE | 2018-12-08 14:24 | NUR ---
OT NOTE PATIENT IDENTIFIED BY NAME AND DATE OF THIS DATE. PATIENT IN BED UPON ARRIVAL. COMPLETED SUPINE TO SIT EOB MIN A X 2. COMPLETED SIT TO STAND FROM BED CGA COMPLETING STATIC STANDING TOLERANCE CGA X 2 USE FWW SUPPORT 1 MIN 45 SECONDS FOR INCREASE STAND TOLERANCE ADL TASKS. PATIENT ATTEMPTED SIT TO STAND SECOND TRIAL WITH PATIENT DEMONSTRATING MUSCLE FATIGUE AND UNABLE TO FULLY SIT TO STAND X SECOND TRIAL. PATIENT ASSISTED INTO BED DEP X 4. PATIENT ABLE TO REPOSITION SELF IN BED WITH RAILS. CALL LIGHT WITH REACH. JACLYN CUELLAR
[2018-12-08 16:00] VITALS: BP 112/63
--- NOTE | 2018-12-08 17:19 | NUR ---
PATIENT MEDICATED WITH PERCOCET FOR C/O 6/10 BACK PAIN. WILL MONITOR
--- NOTE | 2018-12-08 18:19 | NUR ---
PERCOCET EFFECTIVE FOR BACK PAIN.
[2018-12-08 20:00] VITALS: BP 151/63
[2018-12-09] VITALS: BP 110/60
--- NOTE | 2018-12-09 03:19 | NUR ---
PRN PERCOCET ADMINISTERED FOR PT C/O CHRONIC BACK PAIN RATED A 9/10 ON THE PAIN SCALE. WILL CONTINUE TO MONITOR AND REASSESS. NO OTHER COMPLAINTS. CALL LIGHT IN REACH.
[2018-12-09 06:54] LABS: BUN 25 mg/dl (7-24); CHLORIDE 112 mmol/L (98-107); CREATININE 0.93 mg/dL (0.70-1.30); POTASSIUM 3.7 mmol/L (3.5-5.1); SODIUM 144 mmol/L (136-145)
--- NOTE | 2018-12-09 09:30 | NUR ---
PT MEDICATED WITH PRN PERCOCET FOR C/O BACK PAIN. PT RATES PAIN 09/04. WILL MONITOR.
--- NOTE | 2018-12-09 10:30 | NUR ---
PRN PERCOCET EFFECTIVE PER PT.
[2018-12-09 12:00] VITALS: BP 132/66
--- NOTE | 2018-12-09 15:30 | NUR ---
PT MEDICATED WITH PRN PERCOCET FOR C/O BACK PAIN. PT RATES PAIN 09/04. WILL MONITOR.
[2018-12-09 16:00] VITALS: BP 133/71
--- NOTE | 2018-12-09 16:30 | NUR ---
PRN PERCOCET EFFECTIVE PER PT.
[2018-12-09 20:00] VITALS: BP 126/64
--- NOTE | 2018-12-09 20:26 | NUR ---
ASSUMED CARE OF PATIENT. PATIENT RESTING COMFORTABLY IN HIS BED AT THIS TIME. DENIES ANY DISCOMFORTS, BUT DOES SAY HE WOULD LIKE A PAIN PILL WITH PM MEDS. PATIENT PRESENTS WITH UNDERLYING EXP WHEEZE IN ALL LUNG DE SANTIAGO. DENIES SOB. CALL LIGHT IN REACH.
--- NOTE | 2018-12-09 21:31 | NUR ---
PATIENT RECEIVED OXYCODONE FOR PAIN IN LOWER BACK RATED 8/10.
[2018-12-10] VITALS: BP 133/67
--- NOTE | 2018-12-10 05:54 | NUR ---
PRN PERCOCET ADMINISTERED FOR PT C/O BACK PAIN RATED A 9/10 ON THE PAIN SCALE. WILL CONTINUE TO MONITOR. NO OTHER COMPLAINTS AT THIS TIME. CALL LIGHT IN REACH.
[2018-12-10 07:12] LABS: HEMOGLOBIN 12.9 g/dl (14.0-18.0); MEAN CELL VOLUME 101.8 fl (80.0-94.0); MEAN CORPUSCULAR HGB 32.8 pg (27.0-31.0); MEAN CORPUSCULAR HGB CONC 32.3 g/dl (33.0-37.0); MEAN PLATELET VOLUME 11.2 fl (9.6-12.3); PLATELET COUNT AUTOMATED 63 10*3/uL (130-400); RED BLOOD COUNT 3.93 10*6/uL (4.50-5.90); RED CELL DISTRI WIDTH 17.2 % (0-14.5); WHITE BLOOD COUNT 4.2 10*3/uL (4.8-10.8)
[2018-12-10 07:20] LABS: CHLORIDE 109 mmol/L (98-107); POTASSIUM 3.6 mmol/L (3.5-5.1); SODIUM 143 mmol/L (136-145)
[2018-12-10 07:26] LABS: BUN 23 mg/dl (7-24); CREATININE 0.84 mg/dL (0.70-1.30)
[2018-12-10 08:00] VITALS: BP 114/59
[2018-12-10 08:11] LABS: TOTAL CELLS COUNTED 100 #CELLS
[2018-12-10 08:12] LABS: PLATELET SUFFICIENCY LOW (NORMAL); POLYCHROMASIA SLIGHT
[2018-12-10 12:00] VITALS: BP 115/67
--- NOTE | 2018-12-10 13:09 | NUR ---
MEDICATED WITH PERCOCET FOR LOWER BACK PAIN RATED 8/10 ACHING AND CONSTANT. SEE MAY. GABRIEL WILLIAMSON FOR EFFECTIVENESS. CALL LIGHT IN REACH. ISOLATION PRECAUTIONS MAINTAINED PER POLICY.
[2018-12-10 16:00] VITALS: BP 124/70
--- NOTE | 2018-12-10 19:59 | NUR ---
IN TO ASSESS PATIENT. PATIENT PLEASANT AND COOPERATIE ALERT AND ORIENTED. STATES THAT HES HAVING SOME BACK PAIN RATING IT 9/10. PERCOCET GIVEN. DIMINISHED LUNGS T/O, DENIES CP, DENIES SOB ON ROOM AIR. NORMOACTIVE BOWELS X4 QUADS, DENIES N/V/D, DENIES DYSURIA, STATES HE HAD SOME BUT IT HAS SINCE GONE AWAY. NO EDEMA NOTED. MOVED HIS BOWELS YESTERDAY. CALL DORON DURBIN, GABRIEL WILLIAMSON
[2018-12-10 20:00] VITALS: BP 115/63
--- NOTE | 2018-12-10 21:00 | NUR ---
PRN PERCOCET SOMEWHAT EFFECTIVE PER PT
[2018-12-11] VITALS: BP 124/63
--- NOTE | 2018-12-11 02:52 | NUR ---
PRN PERCOCET GIVEN FOR PT COMPLAINTS OF BACK PAIN RATING IT 7/10. CALL LIGHT WITHIN REACH, WILL MONITOR
--- NOTE | 2018-12-11 04:00 | NUR ---
PRN MEDICATION APPEARS EFFECTIVE, PT SLEEPING
--- NOTE | 2018-12-11 08:19 | NUR ---
CONTOUR GRINDER faxed updates to [facility]. -EMILIE Bassett
--- NOTE | 2018-12-11 08:48 | NUR ---
Occupational therapy attempted this am however Jesús is having a dressing change. Will check back for OT treatment when patient is appropriate. Lulú Reyes
[2018-12-11 09:09] VITALS: BP 118/78
--- NOTE | 2018-12-11 10:08 | NUR ---
Spoke to Dr. Paris regarding starting precert for [place]. She stated "guess so."
--- NOTE | 2018-12-11 10:09 | NUR ---
PT GIVEN PERCOCET AT THIS TIME FOR COMPLAINTS OF GENERALIZED PAIN. WILL MONITOR FOR EFFECTIVENESS. PT SITTING UP IN BED, HOB ELEVATED. NO OTHER COMPLAINTS VOICED. ALL SAFETY MEASURES IN PLACE. CALL LIGHT IN REACH.
--- NOTE | 2018-12-11 10:30 | NUR ---
Money Market Clerk in to see patient. No new needs or request at this time. When medically stable and precert is obtained he will be discharge to [facility]. horse stud worker/vacation planner following.
--- NOTE | 2018-12-11 11:09 | NUR ---
PERCOCET EFFECTIVE PER PT.
--- NOTE | 2018-12-11 11:16 | NUR ---
EDUCATIONAL PARAPROFESSIONAL COMPLETED HENS. -EMILIE MULLER
[2018-12-11 11:54] VITALS: BP 125/76
--- NOTE | 2018-12-11 13:40 | NUR ---
PHYSICAL THERAPY Patient seen this pm 1:1 for therapy visit and was supine in bed following lunch, upon therapist arrival. Patient was pleasant this afternoon, voicing no new c/o's and educated on supine B LE therex to be completed PRN for ROM / strength. Patient vcoiced his understanding and transfers supine to sit EOB with MIN A, then sit to stand, Min A with use of wh walker standing support. Patient ambulates 5'x 2 to [facility], completing safe toilet transfer, however demonstrated increased difficulty at first with sit to stand from low seat height. Patient improved transfer following v/c for technique / performance and returned to supine in bed with Mod A with B LE. Patient remained in bed with call light, tray table and telephone. Will continue per POC as tolerated, total treatment time 15 minutes. Adolfo Saul, LONG CHAIN DYEING MACHINE OPERATOR
--- NOTE | 2018-12-11 13:40 | NUR ---
OT NOTE Patient was seen this date for 20 minutes of OT treatment. Patient was supine in bed upon arrival and was agreeable to OT treatment. Patient stated he has been ambulating in room from EOB to bedside commode independently. Patient demonstrated task by completing a functional toilet transfer with the ww using CGA. Patient performed 2 functional sit/stands from the BSC, focusing on pushing through his upper extremities to complete a full, balanced stance. Patient returned to EOB for a 3 minutes rest break due to increased fatigue. While setaed EOB, patient completed hair brushing and face washing tasks with fair activity tolerance. Patient completed final sit/stand from EOB with CGA with side steps to HOB. OT treatment concluded with patient supine in bed with all needs and call bhatti within reach. Patient would benefit from continued OT treatment to maximize endurance for enhanced ADL participation. Nicol Gallegos, OTR/L
--- NOTE | 2018-12-11 14:58 | NUR ---
NOTIFIED DR HINTON THAT SHIP'S ELECTRONIC WARFARE OFFICER NOTIFIED THIS NURSE THAT PATIENT HAS A 16 BEAT RUN OF VTACH. EKG OBTAINED PER NURSING MEASURE SHOWING SINUS RHYTHM. DR HINTON NOTIFIED OF FINDINGS. NEW ORDER RECEIVED TO CONSULT DR SARABIA. CONSULT CALLED TO DR SARABIA PER ORDERS. PT LYING IN BED, NO S/S OF DISTRESS. CALL LIGHT IN REACH.
--- NOTE | 2018-12-11 15:35 | NUR ---
DR HINTON GIVES OKAY TO USE PICC LINE THAT WAS PLACED TODAY IN PATIENT'S LEFT UPPER EXTREMITY.
[2018-12-11 16:00] VITALS: BP 125/79
--- NOTE | 2018-12-11 16:00 | NUR ---
SPOKE WITH DR CARRANZA REGARDING PATIENT CONSULT. ORDERS RECEIVED TO OBTAIN MAGNESIUM LEVEL AND TO GIVE CALL BACK IF LEVEL IS LESS THAN 1.8. [address] APPROPRIATE ORDERS.
--- NOTE | 2018-12-11 16:09 | NUR ---
Faxed updates to [facility]. -EMILIE Bassett
--- NOTE | 2018-12-11 18:31 | NUR ---
SPOKE WITH DR CHAUHAN REGARDING PT MAG LEVEL OF 1.7. NEW ORDERS RECEIVED AT THIS TIME TO GIVE PATIENT 1 GRAM OF MAGNESIUM IV NOW, 20 MEQ KDUR PO NOW, 20 MEQ KDUR PO DAILY. WILL NOTIFY PATIENT.
[2018-12-11 20:00] VITALS: BP 107/59
--- NOTE | 2018-12-11 20:00 | NUR ---
24 HOUR CHART CHECK COMPLETE.
--- NOTE | 2018-12-11 22:59 | NUR ---
PRN PERCOCET ADMINISTERED PRESCRIBED FOR PT C/O CHRONIC BACK PAIN RATED A 8/10 ON THE PAIN SCALE. WILL CONTINUE TO MONITOR. CALL LIGHT IN REACH.
--- NOTE | 2018-12-11 23:50 | NUR ---
PT ASLEEP AT THIS TIME. NO SIGNS OF DISCOMFORT OR DISTRESS NOTED. WILL CONTINUE TO MONITOR.
[2018-12-12] VITALS: BP 121/71
--- NOTE | 2018-12-12 05:38 | NUR ---
PRN PERCOCET ADMINISTERED PRESCRIBED FOR PT C/O 11/04 CHRONIC BACK PAIN. WILL CONTINUE TO MONITOR AND REASSESS. NO OTHER COMPLAINTS AT THIS TIME. CALL LIGHT IN REACH.
--- NOTE | 2018-12-12 06:22 | NUR ---
PT ASLEEP. RESPIRATIONS EASY, HEART RATE 70'S PER CM. NO SIGNS OF DISTRESS. PERCOCET APPEARS TO BE EFFECTIVE. WILL CONTINUE TO MONITOR.
[2018-12-12 08:00] VITALS: BP 124/72
--- NOTE | 2018-12-12 08:30 | NUR ---
Patient resting quietly with no c/o discomfort. Respirations easy and regular. Vital signs stable. No overt distress. AVTAR VAUGHAN R
[2018-12-12] MEDS ORDERED: PERCOCET 10-321 EACH PO (10:31)
--- NOTE | 2018-12-12 11:00 | NUR ---
Diamond Wheel Molder in to see patient. He is currently up on the BSC with a patient attendant at his side. Discussed possible discharge to [facility] today and he remains agreeable. Discussed with Dr. English awaiting precert for [facility] and patient can be discharged when medically stable. convention planner following.
--- NOTE | 2018-12-12 11:33 | NUR ---
Patient's discharge to [facility] is approved with auth # [id number]
--- NOTE | 2018-12-12 11:35 | NUR ---
Patient is discharged to [facility], in to see patient who stated his mother will transport him and he will contact her. We decided 2 PM for order picker. Faxed DC orders and summary, notified nursing/cargo vessel stewardess and NH.
[2018-12-12 12:00] VITALS: BP 148/82
--- NOTE | 2018-12-12 14:08 | NUR ---
REPORT CALLED TO KEISHA.
--- NOTE | 2018-12-12 14:09 | NUR ---
Discharge instructions reviewed with patient/family. Patient receptive and verbalizes understanding. Follow-up care arranged. Written instructions given to patient/family. AVTAR VAUGHAN
--- NOTE | 2018-12-12 16:04 | NUR ---
OCCUPATIONAL THERAPY CO-SIGN I approve of the Occupational Therapy notes written above. DORON AC OTR/Cassy
--- NOTE | 2018-12-12 17:19 | NUR ---
PHYSICAL THERAPY CO-SIGN I approve of the Physical Therapy notes written above. REMA HENSON PT,DPT
== END 2018-12-12 14:09 | disposition other institution (70) | DRG 689 ==
LOC: ED 12:02 → EDHOLD 15:06 → 4E 15:06
PROVIDERS: Internal Medicine; Internal Medicine Nephrology; Physician Assistant; ADMIT Internal Medicine
PROC: 02HV33Z Insertion of Infusion Device into Superior Vena Cava, Percutaneous Approach (ICD-10-PCS; principal; 2018-12-11)
DX: N30.01 Acute cystitis with hematuria (principal); N17.0 Acute kidney failure with tubular necrosis; I47.2 Ventricular tachycardia; I50.42 Chronic combined systolic (congestive) and diastolic (congestive) heart failure; I42.9 Cardiomyopathy, unspecified; K76.6 Portal hypertension; I13.0 Hypertensive heart and chronic kidney disease with heart failure and stage 1 through stage 4 chronic kidney disease, or unspecified chronic kidney disease; Z68.43 Body mass index [BMI] 50.0-59.9, adult; E87.6 Hypokalemia; J44.9 Chronic obstructive pulmonary disease, unspecified; E78.00 Pure hypercholesterolemia, unspecified; Z98.84 Bariatric surgery status; M10.9 Gout, unspecified; K74.60 Unspecified cirrhosis of liver; E66.01 Morbid (severe) obesity due to excess calories; R33.9 Retention of urine, unspecified; E78.2 Mixed hyperlipidemia; E03.9 Hypothyroidism, unspecified; Z16.12 Extended spectrum beta lactamase (ESBL) resistance; B96.1 Klebsiella pneumoniae [K. pneumoniae] as the cause of diseases classified elsewhere; B96.89 Other specified bacterial agents as the cause of diseases classified elsewhere; R62.7 Adult failure to thrive; N28.1 Cyst of kidney, acquired; E78.5 Hyperlipidemia, unspecified; D69.6 Thrombocytopenia, unspecified; G47.33 Obstructive sleep apnea (adult) (pediatric); N18.9 Chronic kidney disease, unspecified; E11.22 Type 2 diabetes mellitus with diabetic chronic kidney disease; D50.9 Iron deficiency anemia, unspecified; Z79.899 Other long term (current) drug therapy; Z79.4 Long term (current) use of insulin; Z90.89 Acquired absence of other organs; Z87.891 Personal history of nicotine dependence; Z83.3 Family history of diabetes mellitus; Z82.49 Family history of ischemic heart disease and other diseases of the circulatory system; Z84.89 Family history of other specified conditions

== ENCOUNTER 2019-01-15 12:39 | Inpatient (IN) | payer MEDICARE ==
[~2019-01-15] VITALS: Ht 182.9 cm; Wt 175.1 kg
[~2019-01-15 12:39] MED LIST changes: +ALDACTONE100 MG PO; +ATORVASTATIN CA10 M1 PO; +BUPROPION HCL150 M1 PO; -BUPROPION HCL150 M2 PO; +DOXEPIN HCL10 MG PO; +OYSCO 500-VIT1 EACH PO; +ROPINIROLE HYDRO2 M2 PO; +SILVADENE20 GM T; +Zaroxolyn,Diul2.5 MG PO
[2019-01-15] MEDS ORDERED: ENULOSE10 GM/151 PO (12:52)
--- NOTE | 2019-01-15 13:00 | NUR ---
A 48, admitted to , under the services of Dr. JAMAAL BURNETT,MIGUELANGEL Dennis with a diagnosis of UTI,SEPSIS AND METABOLIC ENCEPHALOPATHY. Chief complaint is BURNING WITH URINATION, DARK URINE, HANDS JUMPY. Patient arrived via wheel chair from [place]. Monitor applied. Initial assessment completed. Vital signs taken and recorded. DR. JAMAAL BURNETT,MIGUELANGEL Dennis notified of admission to the unit. Orders received. See assessment for past medical history, medications and allergies. Patient and/or family oriented to unit. Clothing/patient valuable form completed. UZMA CROWDER
[2019-01-15] MEDS ORDERED: NYSTATIN15 GM T (13:03)
[2019-01-15 13:08] VITALS: BP 127/69
[2019-01-15] MEDS ORDERED: BUMETANIDE1 MG PO (13:09)
[2019-01-15] MEDS ORDERED: BUMETANIDE0.5 MG PO (13:09)
[2019-01-15] MEDS ORDERED: VITAMIN D50000 UNIT PO (13:49)
[2019-01-15] MEDS ORDERED: CLARITIN10 MG PO (13:50)
[2019-01-15] MEDS ORDERED: FLOVENT HFA12 G1 INH (13:54)
[2019-01-15] MEDS ORDERED: LANTUS SOL100 UNIT/1 SC (14:06)
[2019-01-15] MEDS ORDERED: OZEMPIC1 MG/0.75 SQ (14:10)
[2019-01-15] MEDS ORDERED: VITAMIN C1000 M5 PO (14:13)
[2019-01-15 14:14] LABS: BASO % 0.7 % (0.0-1.0); EOS # 0.2 10*3/uL (0.0-0.4); EOS % 2.7 % (1.0-4.0); HEMATOCRIT 46.6 % (42.0-52.0); HEMOGLOBIN 15.5 g/dl (14.0-18.0); LYMPH % 16.3 % (27.0-41.0); MEAN CELL VOLUME 100.2 fl (80.0-94.0); MEAN CORPUSCULAR HGB 33.3 pg (27.0-31.0); MEAN CORPUSCULAR HGB CONC 33.3 g/dl (33.0-37.0); MEAN PLATELET VOLUME 11.2 fl (9.6-12.3); MONO # 0.7 10*3/uL (0.1-1.0); MONO % 12.6 % (3.0-9.0); NEUT # 3.9 10*3/uL (2.3-7.9); NEUT % 66.3 % (47.0-73.0); PLATELET COUNT AUTOMATED 107 10*3/uL (130-400); RED BLOOD COUNT 4.65 10*6/uL (4.50-5.90); RED CELL DISTRI WIDTH 15.9 % (0-14.5); WHITE BLOOD COUNT 5.9 10*3/uL (4.8-10.8)
--- NOTE | 2019-01-15 14:23 | NUR ---
WOUND CARE NOTITIFIED OF CONSULT ORDER.
[2019-01-15 14:31] LABS: ALKALINE PHOSPHATASE 451 U/L (45-117); BUN 48 mg/dl (7-24); CHLORIDE 107 mmol/L (98-107); POTASSIUM 3.3 mmol/L (3.5-5.1); SGOT/AST 148 IU/L (3-35); SGPT/ALT 158 U/L (12-78); SODIUM 143 mmol/L (136-145); TOTAL PROTEIN 6.8 gm/dL (6.4-8.2)
--- NOTE | 2019-01-15 15:50 | NUR ---
PATIENT STRAIGHT CATHED FOR UA/CS. 400CC EDWARDO URINE OBTAINED.
[2019-01-15 16:00] VITALS: BP 128/67
[2019-01-15 16:10] LABS: BILIRUBIN NEGATIVE (NEGATIVE); BLOOD NEGATIVE (NEGATIVE); CLARITY CLEAR (CLEAR); COLOR YELLOW (YELLOW); GLUCOSE NEGATIVE (NEGATIVE); KETONE NEGATIVE (NEGATIVE); LEUKO ESTERASE NEGATIVE (NEGATIVE); NITRITE NEGATIVE (NEGATIVE); PH 5.5 (5.0-9.0)
[2019-01-15 16:26] LABS: BACTERIA 1+
--- NOTE | 2019-01-15 16:36 | NUR ---
NOTIFIED OF NEW CONSULT ORDER. STATES WILL SEE THE PATIENT THIS AFTERNOON.
--- NOTE | 2019-01-15 19:44 | NUR ---
DR HINTON CALLED WITH CRITICAL LATIC ACID OF 3.0. PATIENT CURRENTLY RECEIVING NS AT 80CC/HR. NO NEW ORDERS AT THIS TIME.
[2019-01-15 20:00] VITALS: BP 143/71
[2019-01-15 21:40] LABS: PHOSPHOROUS 2.4 mg/dL (2.5-4.9)
--- NOTE | 2019-01-15 22:13 | NUR ---
DR HINTON CALLED WITH CRITICAL LACTIC ACID OF 3.6 NO NEW ORDERS AT THIS TIME. PATIENT STATES THAT HE TAKES LANTUS 65 UNITS BID AT HOME, ONLY SCHEDULED DAILY HERE- OK TO PUT IN ORDER FOR BID.
[2019-01-16] VITALS: BP 120/66
--- NOTE | 2019-01-16 02:01 | NUR ---
PATIENT RESTING WITH EYES CLOSED.RESPIRATIONS EASY AND UNLABORED.NO DISTRESS NOTED.CALL LIGHT WITHIN REACH. WILL MONITOR.
--- NOTE | 2019-01-16 04:36 | NUR ---
PATIENT RESTING WITH EYES CLOSED AT THIS TIME.RESPIRATIONS EASY AND UNLABORED. CALL LIGHT WITHIN REACH. WILL MONITOR.
--- NOTE | 2019-01-16 06:15 | NUR ---
ANABELLA MALIK [id number] Please refer to the physician's history and physical for past medical history, comorbid conditions, and allergies. Diagnosis: UTI SEPSIS METABOLIC ENCEPHALOPATHY Leonidas Score: 17,AT RISK WOUND DESCRIPTIONS: Wound Number: 1 Location of the wound: right side of scrotum Type of wound: stage 3 Thickness: Full Size: 1.5cm x 1.5cm x 0.1cm Tunneling: none Undermining: none Sinus Tract: none Presence of Exudate: Serosanguineous Amount: Light Color: Red Odor: None Periwound Skin Appearance: Normal Wound edges: approximated Pain (associated with wound): none at time of assessment How does patient state this happened? pt stated this is ongoing and comes and goes Abdominal folds red and blanchable at time of assessment. No odor noted at time of assessment. No drainage at time of assessment. Surface the patient is resting on: Isoflex SKIN PREVENTION RECOMMENDATION: 1. Pressure redistribution support surface as appropriate 2. Elevate heels 3. Remove boots/TEDS every shift and reapply 4. Head of bed 30 degrees as tolerated 5. Assess nutrition and hydration 6. Manage moisture 7. Avoid the use of containment devices while in bed 8. Use absorptive products on surfaces limit layers of linens on bed 9. Turn and reposition every 1-2 hours in bed and every 1 hour in chair as tolerated 10. Weight shifts every 15 minutes while up in chair 11. Offloading with pillows or device to keep heels elevated off bed 12. Monitor skin at least every shift 13. Inspect under medical devices twice a day WOUND TREATMENT RECOMMENDATIONS: Cleanse scrotum with soap and water and apply and calazime every shift and prn for soiling. Wheelchair cushion when oob.
[2019-01-16 06:37] LABS: BASO % 0.9 % (0.0-1.0); EOS # 0.1 10*3/uL (0.0-0.4); EOS % 3.1 % (1.0-4.0); HEMATOCRIT 44.1 % (42.0-52.0); HEMOGLOBIN 14.3 g/dl (14.0-18.0); LYMPH % 21.3 % (27.0-41.0); MEAN CELL VOLUME 101.6 fl (80.0-94.0); MEAN CORPUSCULAR HGB 32.9 pg (27.0-31.0); MEAN CORPUSCULAR HGB CONC 32.4 g/dl (33.0-37.0); MEAN PLATELET VOLUME 11.7 fl (9.6-12.3); MONO # 0.6 10*3/uL (0.1-1.0); MONO % 12.7 % (3.0-9.0); NEUT # 2.8 10*3/uL (2.3-7.9); NEUT % 61.1 % (47.0-73.0); PLATELET COUNT AUTOMATED 97 10*3/uL (130-400); RED BLOOD COUNT 4.34 10*6/uL (4.50-5.90); RED CELL DISTRI WIDTH 15.9 % (0-14.5); WHITE BLOOD COUNT 4.5 10*3/uL (4.8-10.8)
[2019-01-16 06:47] LABS: BUN 39 mg/dl (7-24); CHLORIDE 110 mmol/L (98-107); CREATININE 1.14 mg/dL (0.70-1.30); POTASSIUM 3.4 mmol/L (3.5-5.1); SODIUM 144 mmol/L (136-145)
--- NOTE | 2019-01-16 07:45 | NUR ---
PATIENT RESTING QUIETLY IN BED WITH EYES CLOSED. AROUSES EASILY. EARLIER PERCOCET EFFECTIVE PER PT. NO VOICED COMPLAINTS AT THIS TIME. VSS. WILL CONTINUE TO MONITOR. CALL LIGHT WITHIN REACH.
[2019-01-16 08:00] VITALS: BP 129/66
--- NOTE | 2019-01-16 10:00 | NUR ---
Multicraft Operator in to talk to patient. Patient states lives at home alone with his family checking on him and helping around his house. There is 1 step in the home. Physician: Dr. Alf English Pharmacy: [facility] Home health services: has had visiting physicians and home health previously. He is unsure of the name of the home health company but does not want them again. Patient's level of ADLs: MODERATE ASSIST Patient has working utilities: yes DME: walker, wheelchair, BSC, lift chair, O2 @ 3L bipap at HS, nebulizer, O2 supplier [employer] Follow-up physician's appointment after d/c: he prefers to make his own follow up appt after discharge Does patient want to access PORTAL?: no Discharge plan discussed with patient. He lives at home alone with his family checking in on him and helping him around the house. He is independent in his ADLs and can ambulate with a walker or uses his wheelchair. Discussed short term SNF if needed and he is agreeable. When given a list of facilities he chose [facility] in [place] as he has been there in the past. Discussed home health care services and he is agreeable if needed. When provided with a list of agencies [facility] chose [facility]. senior media planner notified. REMA JONAS
[2019-01-16 12:00] VITALS: BP 134/91
--- NOTE | 2019-01-16 13:36 | NUR ---
Received call from Jazzmine at [facility] and patient is currently on their services.
--- NOTE | 2019-01-16 13:52 | NUR ---
In to see patient to discuss discharge planning. Explained to patient that I had a long discussion with the [facility]. He currently owes them over $1,200 and if he goes to [facility] upon discharge he will acrue an additional $160 per day for the next 24 days. He stated he is aware and he can't afford to pay that so he would like to go home and resume his [facility] health. adoption manager Jazzmine Gomez notified.
--- NOTE | 2019-01-16 14:00 | NUR ---
PT GIVEN PO PERCOCET PER PRN ORDER FOR C/O GENERALIZED PAIN/DISCOMFORT. WILL MONITOR EFFECTIVENESS.
--- NOTE | 2019-01-16 14:20 | NUR ---
CALLED REGARDING LABS AND LACTULOSE ORDER. NEW ORDERS RECEIVED.
[2019-01-16 14:50] LABS: ALBUMIN 2.7 gm/dl (3.1-4.5); ALKALINE PHOSPHATASE 396 U/L (45-117); BUN 35 mg/dl (7-24); CHLORIDE 112 mmol/L (98-107); CREATININE 1.18 mg/dL (0.70-1.30); POTASSIUM 4.1 mmol/L (3.5-5.1); SGOT/AST 114 IU/L (3-35); SGPT/ALT 138 U/L (12-78); SODIUM 146 mmol/L (136-145)
[2019-01-16 16:00] VITALS: BP 130/69
--- NOTE | 2019-01-16 16:22 | NUR ---
IN TO SEE PATIENT.
[2019-01-16 20:00] VITALS: BP 132/83
--- NOTE | 2019-01-16 22:18 | NUR ---
PATIENT REQUESTING PAIN MEDICATION FOR LOWER BACK BACK RATED 8/10 ON 0/10 SCALE. PERCOCET ADMINISTERED PRESCRIBED. WILL MONITOR FOR EFFECTIVENESS.
--- NOTE | 2019-01-16 23:18 | NUR ---
PATIENT STATES THAT PERCOCET WAS EFFECTIVE FOR BACK VIDA. WILL MONITOR.
[2019-01-17] VITALS: BP 134/80
--- NOTE | 2019-01-17 04:35 | NUR ---
PATIENT RESTING WITH EYES CLOSED.RESPIRATIONS EASY AND UNLABORED.CALL LIGHT WITHIN REACH.WILL MONITOR.
--- NOTE | 2019-01-17 04:36 | NUR ---
Recommend follow up for wound care in outpatient setting patient refused at this time.
--- NOTE | 2019-01-17 04:39 | NUR ---
24 HR chart check completed.
--- NOTE | 2019-01-17 05:53 | NUR ---
PATIENT REQUESTING PAIN MEDICATION FOR BACK PAIN RATED 8/10 ON 0/10 SCALE. PERCOCET ADMINISTERED PRESCRIBED.WILL MONITOR FOR EFFECTIVENESS.
[2019-01-17 06:17] LABS: ALBUMIN 2.5 gm/dl (3.1-4.5); BUN 30 mg/dl (7-24); CHLORIDE 111 mmol/L (98-107); POTASSIUM 3.7 mmol/L (3.5-5.1); SODIUM 143 mmol/L (136-145)
[2019-01-17 06:21] LABS: ALKALINE PHOSPHATASE 404 U/L (45-117); CREATININE 0.95 mg/dL (0.70-1.30); SGOT/AST 87 IU/L (3-35); SGPT/ALT 121 U/L (12-78); TOTAL PROTEIN 5.8 gm/dL (6.4-8.2)
[2019-01-17 06:25] LABS: BASO % 0.8 % (0.0-1.0); EOS # 0.1 10*3/uL (0.0-0.4); EOS % 2.5 % (1.0-4.0); HEMATOCRIT 42.6 % (42.0-52.0); HEMOGLOBIN 13.9 g/dl (14.0-18.0); LYMPH # 0.8 10*3/uL (1.3-4.4); LYMPH % 17.6 % (27.0-41.0); MEAN CELL VOLUME 103.1 fl (80.0-94.0); MEAN CORPUSCULAR HGB 33.7 pg (27.0-31.0); MEAN CORPUSCULAR HGB CONC 32.6 g/dl (33.0-37.0); MEAN PLATELET VOLUME 11.7 fl (9.6-12.3); MONO # 0.5 10*3/uL (0.1-1.0); MONO % 10.2 % (3.0-9.0); NEUT # 3.2 10*3/uL (2.3-7.9); NEUT % 67.6 % (47.0-73.0); PLATELET COUNT AUTOMATED 75 10*3/uL (130-400); RED BLOOD COUNT 4.13 10*6/uL (4.50-5.90); WHITE BLOOD COUNT 4.7 10*3/uL (4.8-10.8)
[2019-01-17 07:47] VITALS: BP 140/82
--- NOTE | 2019-01-17 10:00 | NUR ---
Medical Instructor in to see patient. No new needs or request at this time. When medically stable he will be discharged to home with the resumption of his [facility] Home Health care services. per multidisciplinary discharge planning meeting his ammonia level is trending down and patient is having regular BMs.
[2019-01-17 12:00] VITALS: BP 142/81
--- NOTE | 2019-01-17 12:09 | NUR ---
C/O PAIN TO LOWER BACK OF 12/05. PERCOCET GIVEN REQUESTED. WILL CONT TO MONITOR. CALL LIGHT IN REACH.
--- NOTE | 2019-01-17 13:09 | NUR ---
PERCOCET EFF PT RESTING QUIETLY. WILL CONT TO MONITOR. CALL LIGHT IN REACH.
--- NOTE | 2019-01-17 15:00 | NUR ---
DR BOWMAN NOTIFIED OF LACTIC ACID. NEW ORDER TO STOP IVF.
[2019-01-17 16:00] VITALS: BP 142/74
--- NOTE | 2019-01-17 19:34 | NUR ---
NOTIFIED DR. BOWMAN OF CRITICAL LACTIC ACID, 2.7. TOLD TO ORDER A NEW LACTIC ACID FOR MORNING. NO OTHER ORDERS RECEIVED AT THIS TIME. WILL CONTINUE TO MONITOR.
[2019-01-17 20:00] VITALS: BP 140/70
--- NOTE | 2019-01-17 22:21 | NUR ---
PATIENT STATES PERCOCET HELPED. NOW RATES PAIN A 6. WILL CONTINUE TO MONITOR.
[2019-01-18] VITALS: BP 121/76
--- NOTE | 2019-01-18 06:07 | NUR ---
PATIENT MEDICATED WITH PERCOCET FOR COMPLANTS OF BACK PAIN. RATES 10/04. WILL CHECK EFFECTIVENESS,
[2019-01-18 06:09] LABS: BUN 21 mg/dl (7-24); CHLORIDE 113 mmol/L (98-107); POTASSIUM 3.7 mmol/L (3.5-5.1); SODIUM 144 mmol/L (136-145)
[2019-01-18 07:16] LABS: EOS # 0.1 10*3/uL (0.0-0.4); EOS % 2.8 % (1.0-4.0); HEMATOCRIT 44.1 % (42.0-52.0); HEMOGLOBIN 13.9 g/dl (14.0-18.0); LYMPH # 0.7 10*3/uL (1.3-4.4); MEAN CELL VOLUME 102.8 fl (80.0-94.0); MEAN CORPUSCULAR HGB 32.4 pg (27.0-31.0); MEAN CORPUSCULAR HGB CONC 31.5 g/dl (33.0-37.0); MEAN PLATELET VOLUME 11.3 fl (9.6-12.3); MONO # 0.4 10*3/uL (0.1-1.0); MONO % 9.6 % (3.0-9.0); NEUT # 2.7 10*3/uL (2.3-7.9); NEUT % 67.1 % (47.0-73.0); PLATELET COUNT AUTOMATED 75 10*3/uL (130-400); RED BLOOD COUNT 4.29 10*6/uL (4.50-5.90)
[2019-01-18 08:00] VITALS: BP 144/73
--- NOTE | 2019-01-18 10:00 | NUR ---
Aws Software Development Engineer in to see patient. No new needs or request at this time. When medically stable he will be discharged to home with the resumption of his [facility] Health care services. Per multidisciplinary discharge planning meeting his ammonia level is trending down and patient is having regular BMs, holding diuretics for 1-[address] Sanchez and Dr. Dahl are following.
--- NOTE | 2019-01-18 11:32 | NUR ---
Nutritional Support Services Note: Ht.6' Wt.386# weight is stable. Appetite is good for meals, NCS diet as ordered. Pt refuses to be on an 1800cal diet. He mostly eats high sugar, fried, and processed foods. Refuses to eat healthy or reduce portion sizes. Wound noted to scrotum. Encouraged adequate protein intake to promote heaing. No other nutrition intervention needed at this time. Will follow. Mónica Pereyra Rdn Ld
[2019-01-18 12:00] VITALS: BP 133/71
--- NOTE | 2019-01-18 12:03 | NUR ---
PT STATES HE IS IN PAIN AND IS REQUESTING PRN PERCOCET. RATES HIS PAIN A /. PO PERCOCET IS GIVEN AT THIS TIME.
[2019-01-18 16:00] VITALS: BP 132/70
--- NOTE | 2019-01-18 17:23 | NUR ---
PT STATES THAT HE IS HAVING LWOER BACK PAIN RATING IT A 8/10. PATIENT IS REQUESTING HIS PRN PERCOCET. PERCOCET WAS GIVEN AT THIS TIME. CALL LIGHT WITHIN REACH, NON SKID SOCKS ON, BED LOWESDT POSITION.
[2019-01-18 20:00] VITALS: BP 146/82
--- NOTE | 2019-01-18 21:56 | NUR ---
PATIENT RESTING IN BED, VOICES NO COMPLAINTS AT THIS TIME. RESPIRATIONS EASY, NON LABORED. BED IN LOWEST POSITION,CALL LIGHT WITHIN REACH. WILL CONTINUE TO MONITOR.
[2019-01-19] VITALS: BP 144/80
--- NOTE | 2019-01-19 09:00 | NUR ---
Shingles Roofer in to see patient. No new needs or request at this time. When medically stable he will be discharged to home with the resumption of his [facility] Home Health care services. Per multidisciplinary discharge planning meeting diuretics are going to be restarted. Slight HTN. Dr. Sanchez and Dr. Dahl are following.
--- NOTE | 2019-01-19 10:07 | NUR ---
NOTIFIED DR HINTON OF CRITICAL LAB VALUE OF AMONIA 63, HE IS AWARE AND PATIENT IS ALREADY RECIEVING TX.
[2019-01-19 12:00] VITALS: BP 137/81
[2019-01-19 16:00] VITALS: BP 140/77
--- NOTE | 2019-01-19 17:14 | NUR ---
PT RECIEVED PERCOCETS X2 TODAY. ONCE IN AM AND 1 THIS AFTERNOON AT 1700. PT REPORTS FEELING RELIF FROM BACK PAIN.
[2019-01-19 20:00] VITALS: BP 134/56
--- NOTE | 2019-01-19 23:49 | NUR ---
PT CO BACK PAIN RATED 8/10 ON THE PAIN SCALE. MEDICATED WITH PRN PERCOCET. WILL CHECK EFFECTIVENESS. CALL LIGHT WITHIN REACH. WILL CONTINUE TO MONITOR.
[2019-01-20] VITALS: BP 129/71
--- NOTE | 2019-01-20 01:00 | NUR ---
PT SLEEPING. NO SIGNS OF DISTRESS NOTED. PAIN MED SEEMS TO BE EFFECTIVE. CALL LIGHT WITHIN REACH. WILL CONTINUE TO MONITOR.
--- NOTE | 2019-01-20 01:21 | NUR ---
Patient sleeping. Respirations relaxed and easy. Siderails up. [place] on. No complaints at this time. Call light within reach. Will continue to monitor. TORI URIARTE
--- NOTE | 2019-01-20 06:23 | NUR ---
24 HR CHART CHECK COMPLETE.
[2019-01-20 08:00] VITALS: BP 133/71
--- NOTE | 2019-01-20 10:18 | NUR ---
Percocet given per patient request for c/o chronic back pain that patient rates 7/10. Will monitor.
[2019-01-20 12:00] VITALS: BP 131/63
[2019-01-20] MEDS ORDERED: XIFAXAN550 MG PO (14:58)
[2019-01-20] MEDS ORDERED: KLOR-CON M2020 ME1 PO (14:58)
[2019-01-20] MEDS ORDERED: LACTULOSE20 GM/30 M PO (14:58)
[2019-01-20] MEDS ORDERED: BUMETANIDE1 MG PO (14:58)
--- NOTE | 2019-01-20 15:50 | NUR ---
Discharge instructions reviewed with patient/family. Patient receptive and verbalizes understanding. Follow-up care arranged. Written instructions given to patient/family. Patient was educated on new prescriptions and to attend follow up visits. Patient was wheeled from unit by staff members with all personal belongings accounted for. LYDIA PACHECO
--- NOTE | 2019-01-22 08:14 | NUR ---
Faxed home health care resumption to [facility]
== END 2019-01-20 15:50 | disposition home or self-care (01) | DRG 441 ==
LOC: 4E 12:39
PROVIDERS: Internal Medicine Gastroenterology; Internal Medicine Nephrology; ADMIT Internal Medicine
DX: K72.90 Hepatic failure, unspecified without coma (principal); G93.41 Metabolic encephalopathy; N39.0 Urinary tract infection, site not specified; I50.42 Chronic combined systolic (congestive) and diastolic (congestive) heart failure; N17.9 Acute kidney failure, unspecified; E87.0 Hyperosmolality and hypernatremia; E87.2 Acidosis; I13.0 Hypertensive heart and chronic kidney disease with heart failure and stage 1 through stage 4 chronic kidney disease, or unspecified chronic kidney disease; E66.2 Morbid (severe) obesity with alveolar hypoventilation; F33.1 Major depressive disorder, recurrent, moderate; Z68.43 Body mass index [BMI] 50.0-59.9, adult; E87.6 Hypokalemia; R74.8 Abnormal levels of other serum enzymes; R53.1 Weakness; G89.29 Other chronic pain; K74.60 Unspecified cirrhosis of liver; M1A.9XX0 Chronic gout, unspecified, without tophus (tophi); D50.9 Iron deficiency anemia, unspecified; G25.81 Restless legs syndrome; R62.7 Adult failure to thrive; E11.22 Type 2 diabetes mellitus with diabetic chronic kidney disease; E78.2 Mixed hyperlipidemia; E11.42 Type 2 diabetes mellitus with diabetic polyneuropathy; E03.9 Hypothyroidism, unspecified; J44.9 Chronic obstructive pulmonary disease, unspecified; E65 Localized adiposity; N18.9 Chronic kidney disease, unspecified; Z98.84 Bariatric surgery status; Z87.891 Personal history of nicotine dependence; Z83.3 Family history of diabetes mellitus; Z82.49 Family history of ischemic heart disease and other diseases of the circulatory system; Z84.89 Family history of other specified conditions; Z79.899 Other long term (current) drug therapy; Z80.6 Family history of leukemia

== ENCOUNTER 2019-04-11 10:53 | Inpatient (IN) | payer MEDICARE ==
[~2019-04-11] VITALS: Ht 182.8 cm; Wt 186.9 kg
[2019-04-11] VITALS (40 sets, daily range): BP systolic 84–121; BP diastolic 31–74
[~2019-04-11 10:53] MED LIST changes: +BUMETANIDE0.5 MG PO; +ENULOSE10 GM/151 PO; +FLOVENT HFA12 G1 INH; +LACTULOSE20 GM/30 M PO; +NYSTATIN15 GM T; +XIFAXAN550 MG PO
[2019-04-11 11:33] LABS: HEMATOCRIT 45.6 % (42.0-52.0); HEMOGLOBIN 14.6 g/dl (14.0-18.0); MEAN CELL VOLUME 100.2 fl (80.0-94.0); MEAN CORPUSCULAR HGB 32.1 pg (27.0-31.0); MEAN PLATELET VOLUME 11.5 fl (9.6-12.3); PLATELET COUNT AUTOMATED 71 10*3/uL (130-400); RED BLOOD COUNT 4.55 10*6/uL (4.50-5.90); RED CELL DISTRI WIDTH 16.2 % (0-14.5); WHITE BLOOD COUNT 4.4 10*3/uL (4.8-10.8)
[2019-04-11 11:43] LABS: ALBUMIN 2.5 gm/dl (3.1-4.5); CREATININE 2.4 mg/dL (0.70-1.30); POTASSIUM 5.2 mmol/L (3.5-5.1); TOTAL PROTEIN 6.5 gm/dL (6.4-8.2)
[2019-04-11 11:47] LABS: PLATELET SUFFICIENCY LOW (NORMAL); ROULEAUX SLIGHT; TOTAL CELLS COUNTED 100 #CELLS
[2019-04-11 13:09] LABS: BILIRUBIN 2+ (NEGATIVE); BLOOD TRACE-INTACT (NEGATIVE); CLARITY SL CLOUDY (CLEAR); COLOR YELLOW (YELLOW); GLUCOSE NEGATIVE (NEGATIVE); KETONE TRACE (NEGATIVE); LEUKO ESTERASE TRACE (NEGATIVE); NITRITE NEGATIVE (NEGATIVE); SPECIFIC GRAVITY >= 1.030 (1.005-1.030)
[2019-04-11 13:21] LABS: BACTERIA 4+
[2019-04-11] MEDS ORDERED: GLUCOPHAGE1000 MG PO (15:24)
[2019-04-12] VITALS (32 sets, daily range): BP systolic 89–131; BP diastolic 44–81
[2019-04-12 05:42] LABS: CREATININE 2.19 mg/dL (0.70-1.30); POTASSIUM 4.8 mmol/L (3.5-5.1)
[2019-04-12 06:12] LABS: HEMOGLOBIN 14.3 g/dl (14.0-18.0); MEAN CORPUSCULAR HGB 31.7 pg (27.0-31.0); MEAN CORPUSCULAR HGB CONC 31.1 g/dl (33.0-37.0); MEAN PLATELET VOLUME 12.3 fl (9.6-12.3); PLATELET COUNT AUTOMATED 56 10*3/uL (130-400); RED BLOOD COUNT 4.51 10*6/uL (4.50-5.90); RED CELL DISTRI WIDTH 16.1 % (0-14.5); WHITE BLOOD COUNT 4.3 10*3/uL (4.8-10.8)
[2019-04-12 06:58] LABS: TOTAL CELLS COUNTED 100 #CELLS
[2019-04-12 06:59] LABS: PLATELET SUFFICIENCY LOW (NORMAL); POLYCHROMASIA SLIGHT; TOXIC GRANULATION SLIGHT; VACUOLATION OF NEUTROPHILS SLIGHT
[2019-04-12 08:25] LABS: ARTERIAL BLOOD GAS PH 7.312 (7.35-7.45)
[2019-04-12 14:54] LABS: ARTERIAL BLOOD GAS PH 7.346 (7.35-7.45)
[2019-04-13] VITALS: BP 98/54
[2019-04-13 04:00] VITALS: BP 101/59
[2019-04-13 08:00] VITALS: BP 101/62
[2019-04-13 09:04] LABS: HEMATOCRIT 44.3 % (42.0-52.0); MEAN CELL VOLUME 100.2 fl (80.0-94.0); MEAN CORPUSCULAR HGB 31.7 pg (27.0-31.0); MEAN CORPUSCULAR HGB CONC 31.6 g/dl (33.0-37.0); PLATELET COUNT AUTOMATED 63 10*3/uL (130-400); RED BLOOD COUNT 4.42 10*6/uL (4.50-5.90); RED CELL DISTRI WIDTH 15.9 % (0-14.5); WHITE BLOOD COUNT 3.8 10*3/uL (4.8-10.8)
[2019-04-13 09:20] LABS: ALBUMIN 1.6 gm/dl (3.1-4.5); ALKALINE PHOSPHATASE 190 U/L (45-117); BUN 58 mg/dl (7-24); CHLORIDE 112 mmol/L (98-107); CREATININE 1.49 mg/dL (0.70-1.30); POTASSIUM 4.2 mmol/L (3.5-5.1); SGOT/AST 19 IU/L (3-35); SGPT/ALT 25 U/L (12-78); SODIUM 144 mmol/L (136-145); TOTAL PROTEIN 5.8 gm/dL (6.4-8.2)
[2019-04-13 09:29] LABS: DOHLE BODIES FEW; PLATELET SUFFICIENCY LOW (NORMAL); TOTAL CELLS COUNTED 100 #CELLS; TOXIC GRANULATION MODERATE; VACUOLATION OF NEUTROPHILS SLIGHT
[2019-04-13 09:30] LABS: BURR CELLS FEW; POLYCHROMASIA SLIGHT
[2019-04-13 09:49] LABS: ABG BASE EXCESS -2.9 mmol/L (-2.0-2.0); ARTERIAL BLOOD GAS PH 7.362 (7.35-7.45)
[2019-04-13 12:00] VITALS: BP 109/70
[2019-04-13 16:00] VITALS: BP 104/68
[2019-04-13 19:57] VITALS: BP 122/67
[2019-04-14] VITALS: BP 103/47
[2019-04-14 04:00] VITALS: BP 118/64
[2019-04-14 05:45] LABS: ALBUMIN 1.6 gm/dl (3.1-4.5); ALKALINE PHOSPHATASE 192 U/L (45-117); BUN 51 mg/dl (7-24); CHLORIDE 113 mmol/L (98-107); CREATININE 1.11 mg/dL (0.70-1.30); POTASSIUM 3.3 mmol/L (3.5-5.1); SGOT/AST 22 IU/L (3-35); SGPT/ALT 22 U/L (12-78); SODIUM 146 mmol/L (136-145); TOTAL PROTEIN 5.7 gm/dL (6.4-8.2)
[2019-04-14 06:03] LABS: CREATININE,URINE 30.7 mg/dL (Not Estab.); MICRO ALBUMIN/CRE RATIO 21.2 (0.0-30.0)
[2019-04-14 06:08] LABS: HEMATOCRIT 43.8 % (42.0-52.0); MEAN CELL VOLUME 99.5 fl (80.0-94.0); MEAN CORPUSCULAR HGB 31.8 pg (27.0-31.0); MEAN PLATELET VOLUME 12.4 fl (9.6-12.3); PLATELET COUNT AUTOMATED 68 10*3/uL (130-400); RED CELL DISTRI WIDTH 15.7 % (0-14.5); WHITE BLOOD COUNT 4.6 10*3/uL (4.8-10.8)
[2019-04-14 06:57] LABS: PLATELET SUFFICIENCY LOW (NORMAL); POLYCHROMASIA SLIGHT; TOTAL CELLS COUNTED 100 #CELLS; TOXIC GRANULATION MODERATE; VACUOLATION OF NEUTROPHILS SLIGHT
[2019-04-14 08:00] VITALS: BP 122/68
[2019-04-14 12:00] VITALS: BP 120/53
[2019-04-14 16:00] VITALS: BP 102/73
[2019-04-14 20:00] VITALS: BP 105/58
[2019-04-15] VITALS: BP 98/65
[2019-04-15 04:00] VITALS: BP 107/74
[2019-04-15 04:59] LABS: HEMATOCRIT 42.5 % (42.0-52.0); HEMOGLOBIN 13.6 g/dl (14.0-18.0); MEAN CELL VOLUME 100.2 fl (80.0-94.0); MEAN CORPUSCULAR HGB 32.1 pg (27.0-31.0); MEAN PLATELET VOLUME 11.1 fl (9.6-12.3); PLATELET COUNT AUTOMATED 68 10*3/uL (130-400); RED BLOOD COUNT 4.24 10*6/uL (4.50-5.90); RED CELL DISTRI WIDTH 15.7 % (0-14.5); WHITE BLOOD COUNT 5.5 10*3/uL (4.8-10.8)
[2019-04-15 05:13] LABS: ALBUMIN 1.5 gm/dl (3.1-4.5); ALKALINE PHOSPHATASE 232 U/L (45-117); BUN 47 mg/dl (7-24); CHLORIDE 111 mmol/L (98-107); POTASSIUM 3.2 mmol/L (3.5-5.1); SGOT/AST 29 IU/L (3-35); SGPT/ALT 20 U/L (12-78); SODIUM 145 mmol/L (136-145); TOTAL PROTEIN 5.4 gm/dL (6.4-8.2)
[2019-04-15 05:43] LABS: ATYPICAL LYMPHS 1 % (0-0); BASOPHILS 1 % (0-1); TOTAL CELLS COUNTED 100 #CELLS
[2019-04-15 05:45] LABS: PLATELET SUFFICIENCY NORMAL (NORMAL)
[2019-04-15 08:00] VITALS: BP 128/73
[2019-04-15 12:00] VITALS: BP 137/78
[2019-04-15 14:07] LABS: ALBUMIN 1.7 gm/dl (3.1-4.5); ALKALINE PHOSPHATASE 230 U/L (45-117); BUN 40 mg/dl (7-24); CHLORIDE 110 mmol/L (98-107); CREATININE 1.05 mg/dL (0.70-1.30); POTASSIUM 3.5 mmol/L (3.5-5.1); SGOT/AST 29 IU/L (3-35); SGPT/ALT 22 U/L (12-78); SODIUM 144 mmol/L (136-145); TOTAL PROTEIN 5.5 gm/dL (6.4-8.2)
[2019-04-15 16:00] VITALS: BP 132/60
[2019-04-15 20:00] VITALS: BP 112/63
[2019-04-16] VITALS: BP 118/67
[2019-04-16 04:00] VITALS: BP 131/71
[2019-04-16 05:03] LABS: HEMATOCRIT 42.7 % (42.0-52.0); HEMOGLOBIN 13.7 g/dl (14.0-18.0); MEAN CELL VOLUME 99.1 fl (80.0-94.0); MEAN CORPUSCULAR HGB 31.8 pg (27.0-31.0); MEAN CORPUSCULAR HGB CONC 32.1 g/dl (33.0-37.0); MEAN PLATELET VOLUME 11.7 fl (9.6-12.3); PLATELET COUNT AUTOMATED 76 10*3/uL (130-400); RED BLOOD COUNT 4.31 10*6/uL (4.50-5.90); RED CELL DISTRI WIDTH 15.6 % (0-14.5); WHITE BLOOD COUNT 6.1 10*3/uL (4.8-10.8)
[2019-04-16 05:42] LABS: DOHLE BODIES FEW; PLATELET SUFFICIENCY LOW (NORMAL); TOTAL CELLS COUNTED 100 #CELLS; TOXIC GRANULATION SLIGHT
[2019-04-16 08:00] VITALS: BP 129/65
[2019-04-16 12:00] VITALS: BP 130/65
[2019-04-16 16:00] VITALS: BP 130/78
[2019-04-16 20:00] VITALS: BP 131/74
[2019-04-17] VITALS: BP 115/61
[2019-04-17 06:43] LABS: ALBUMIN 1.6 gm/dl (3.1-4.5); ALKALINE PHOSPHATASE 319 U/L (45-117); BUN 37 mg/dl (7-24); CHLORIDE 108 mmol/L (98-107); CREATININE 0.92 mg/dL (0.70-1.30); POTASSIUM 3.7 mmol/L (3.5-5.1); SGOT/AST 38 IU/L (3-35); SGPT/ALT 28 U/L (12-78); SODIUM 141 mmol/L (136-145); TOTAL PROTEIN 5.7 gm/dL (6.4-8.2)
[2019-04-17 06:59] LABS: HEMATOCRIT 42.3 % (42.0-52.0); HEMOGLOBIN 13.2 g/dl (14.0-18.0); MEAN CELL VOLUME 100.7 fl (80.0-94.0); MEAN CORPUSCULAR HGB 31.4 pg (27.0-31.0); MEAN CORPUSCULAR HGB CONC 31.2 g/dl (33.0-37.0); MEAN PLATELET VOLUME 11.6 fl (9.6-12.3); PLATELET COUNT AUTOMATED 82 10*3/uL (130-400); RED CELL DISTRI WIDTH 15.7 % (0-14.5); WHITE BLOOD COUNT 8.8 10*3/uL (4.8-10.8)
[2019-04-17 07:17] LABS: PLATELET SUFFICIENCY LOW (NORMAL); TOTAL CELLS COUNTED 100 #CELLS; TOXIC GRANULATION SLIGHT
[2019-04-17 08:00] VITALS: BP 136/78
[2019-04-17 12:00] VITALS: BP 127/67
[2019-04-17 16:00] VITALS: BP 132/72
[2019-04-17 20:00] VITALS: BP 119/65
[2019-04-18] VITALS: BP 137/72
[2019-04-18 06:16] LABS: HEMATOCRIT 41.5 % (42.0-52.0); HEMOGLOBIN 13.1 g/dl (14.0-18.0); MEAN CELL VOLUME 100.5 fl (80.0-94.0); MEAN CORPUSCULAR HGB 31.7 pg (27.0-31.0); MEAN CORPUSCULAR HGB CONC 31.6 g/dl (33.0-37.0); MEAN PLATELET VOLUME 11.7 fl (9.6-12.3); PLATELET COUNT AUTOMATED 84 10*3/uL (130-400); RED BLOOD COUNT 4.13 10*6/uL (4.50-5.90); RED CELL DISTRI WIDTH 15.8 % (0-14.5); WHITE BLOOD COUNT 9.8 10*3/uL (4.8-10.8)
[2019-04-18 06:27] LABS: ALBUMIN 1.5 gm/dl (3.1-4.5); BUN 35 mg/dl (7-24); CHLORIDE 109 mmol/L (98-107); CREATININE 0.91 mg/dL (0.70-1.30); POTASSIUM 3.9 mmol/L (3.5-5.1); SGOT/AST 42 IU/L (3-35); SGPT/ALT 33 U/L (12-78); SODIUM 142 mmol/L (136-145); TOTAL PROTEIN 5.3 gm/dL (6.4-8.2)
[2019-04-18 06:38] LABS: ALKALINE PHOSPHATASE 372 U/L (45-117); BASOPHILS 1 % (0-1); POLYCHROMASIA SLIGHT; TOTAL CELLS COUNTED 100 #CELLS; TOXIC GRANULATION MODERATE
[2019-04-18 06:39] LABS: PLATELET SUFFICIENCY LOW (NORMAL)
[2019-04-18 12:00] VITALS: BP 122/68
[2019-04-18 16:00] VITALS: BP 126/67
[2019-04-18 20:00] VITALS: BP 131/64
[2019-04-19] VITALS: BP 136/75
[2019-04-19 08:00] VITALS: BP 134/70
[2019-04-19 12:00] VITALS: BP 140/74
[2019-04-19 16:00] VITALS: BP 131/113
[2019-04-19 20:00] VITALS: BP 118/65
[2019-04-20] VITALS: BP 122/67
[2019-04-20 06:29] LABS: HEMATOCRIT 40.3 % (42.0-52.0); HEMOGLOBIN 12.7 g/dl (14.0-18.0); MEAN CELL VOLUME 101.3 fl (80.0-94.0); MEAN CORPUSCULAR HGB 31.9 pg (27.0-31.0); MEAN CORPUSCULAR HGB CONC 31.5 g/dl (33.0-37.0); MEAN PLATELET VOLUME 11.2 fl (9.6-12.3); PLATELET COUNT AUTOMATED 110 10*3/uL (130-400); RED BLOOD COUNT 3.98 10*6/uL (4.50-5.90); RED CELL DISTRI WIDTH 15.6 % (0-14.5); WHITE BLOOD COUNT 10.3 10*3/uL (4.8-10.8)
[2019-04-20 06:54] LABS: TOTAL CELLS COUNTED 100 #CELLS
[2019-04-20 06:55] LABS: PLATELET SUFFICIENCY LOW (NORMAL); POLYCHROMASIA SLIGHT; TOXIC GRANULATION MODERATE
[2019-04-20 06:58] LABS: ALBUMIN 1.8 gm/dl (3.1-4.5); ALKALINE PHOSPHATASE 420 U/L (45-117); BUN 35 mg/dl (7-24); CHLORIDE 108 mmol/L (98-107); CREATININE 0.91 mg/dL (0.70-1.30); POTASSIUM 4.1 mmol/L (3.5-5.1); SGOT/AST 54 IU/L (3-35); SGPT/ALT 35 U/L (12-78); SODIUM 141 mmol/L (136-145); TOTAL PROTEIN 6.1 gm/dL (6.4-8.2)
[2019-04-20] MEDS ORDERED: TRAD5TAB1 PO (07:00)
[2019-04-20] MEDS ORDERED: ALDACTONE25 MG PO (07:00)
[2019-04-20] MEDS ORDERED: KLOR-CON M2020 ME1 PO (07:00)
[2019-04-20] MEDS ORDERED: CLEOCIN HCL300 MG PO (07:00)
[2019-04-20] MEDS ORDERED: PERCOCET 7.5 MG-325 PO (07:00)
== END 2019-04-20 11:32 | disposition other institution (70) | DRG 871 ==
LOC: ED 10:53 → EDHOLD 12:27 → ICCU 12:27 → 4E 04-16 13:31
PROVIDERS: Emergency Medicine; Internal Medicine Critical Care Medicine; Internal Medicine Nephrology; ADMIT Internal Medicine
PROC: 5A09457 Assistance with Respiratory Ventilation, 24-96 Consecutive Hours, Continuous Positive Airway Pressure (ICD-10-PCS; principal; 2019-04-12)
PROC: 5A09357 Assistance with Respiratory Ventilation, Less than 24 Consecutive Hours, Continuous Positive Airway Pressure (ICD-10-PCS; 2019-04-13)
PROC: 5A09357 Assistance with Respiratory Ventilation, Less than 24 Consecutive Hours, Continuous Positive Airway Pressure (ICD-10-PCS; 2019-04-14)
PROC: 5A09357 Assistance with Respiratory Ventilation, Less than 24 Consecutive Hours, Continuous Positive Airway Pressure (ICD-10-PCS; 2019-04-16)
PROC: 5A09357 Assistance with Respiratory Ventilation, Less than 24 Consecutive Hours, Continuous Positive Airway Pressure (ICD-10-PCS; 2019-04-17)
PROC: 5A09357 Assistance with Respiratory Ventilation, Less than 24 Consecutive Hours, Continuous Positive Airway Pressure (ICD-10-PCS; 2019-04-20)
DX: A41.9 Sepsis, unspecified organism (principal); L89.893 Pressure ulcer of other site, stage 3; R65.21 Severe sepsis with septic shock; J96.01 Acute respiratory failure with hypoxia; N17.0 Acute kidney failure with tubular necrosis; J96.22 Acute and chronic respiratory failure with hypercapnia; J96.21 Acute and chronic respiratory failure with hypoxia; I50.43 Acute on chronic combined systolic (congestive) and diastolic (congestive) heart failure; L03.311 Cellulitis of abdominal wall; N18.4 Chronic kidney disease, stage 4 (severe); E87.0 Hyperosmolality and hypernatremia; E87.2 Acidosis; I13.0 Hypertensive heart and chronic kidney disease with heart failure and stage 1 through stage 4 chronic kidney disease, or unspecified chronic kidney disease; L03.115 Cellulitis of right lower limb; L03.116 Cellulitis of left lower limb; E66.2 Morbid (severe) obesity with alveolar hypoventilation; E46 Unspecified protein-calorie malnutrition; I42.9 Cardiomyopathy, unspecified; Z68.43 Body mass index [BMI] 50.0-59.9, adult; R62.7 Adult failure to thrive; M79.3 Panniculitis, unspecified; K74.60 Unspecified cirrhosis of liver; E87.6 Hypokalemia; E83.42 Hypomagnesemia; D69.59 Other secondary thrombocytopenia; E11.22 Type 2 diabetes mellitus with diabetic chronic kidney disease; D72.819 Decreased white blood cell count, unspecified; G89.4 Chronic pain syndrome; G25.81 Restless legs syndrome; J44.9 Chronic obstructive pulmonary disease, unspecified; M10.9 Gout, unspecified; E78.5 Hyperlipidemia, unspecified; E03.9 Hypothyroidism, unspecified; T50.2X5A Adverse effect of carbonic-anhydrase inhibitors, benzothiadiazides and other diuretics, initial encounter; Y92.238 Other place in hospital as the place of occurrence of the external cause; Z87.440 Personal history of urinary (tract) infections; Z87.891 Personal history of nicotine dependence; Z82.49 Family history of ischemic heart disease and other diseases of the circulatory system; Z83.3 Family history of diabetes mellitus; Z80.6 Family history of leukemia; Z83.49 Family history of other endocrine, nutritional and metabolic diseases; Z83.79 Family history of other diseases of the digestive system

== ENCOUNTER 2019-05-22 11:29 | Inpatient (IN) | payer MEDICARE ==
[2019-05-22] VITALS (8 sets, daily range): BP systolic 85–121; BP diastolic 48–74
[~2019-05-22] VITALS: Ht 185.4 cm; Wt 161.5 kg
[~2019-05-22 11:29] MED LIST changes: +CLEOCIN HCL300 MG PO; +PERCOCET 7.5 MG-325 PO; +TRAD5TAB1 PO
[2019-05-22 12:15] LABS: HEMATOCRIT 39.1 % (42.0-52.0); HEMOGLOBIN 12.2 g/dl (14.0-18.0); MEAN CELL VOLUME 100.3 fl (80.0-94.0); MEAN CORPUSCULAR HGB 31.3 pg (27.0-31.0); MEAN CORPUSCULAR HGB CONC 31.2 g/dl (33.0-37.0); MEAN PLATELET VOLUME 10.2 fl (9.6-12.3); PLATELET COUNT AUTOMATED 122 10*3/uL (130-400); RED CELL DISTRI WIDTH 18.2 % (0-14.5); WHITE BLOOD COUNT 8.5 10*3/uL (4.8-10.8)
[2019-05-22 12:24] LABS: ACT PARTIAL THROMBO TIME 25.6 SECONDS (20.0-32.1)
[2019-05-22 12:33] LABS: ALBUMIN 1.4 gm/dl (3.1-4.5); ALKALINE PHOSPHATASE 485 U/L (45-117); BASOPHILS 1 % (0-1); BUN 45 mg/dl (7-24); CHLORIDE 107 mmol/L (98-107); CREATININE 1.69 mg/dL (0.70-1.30); LIPASE 90 U/L (73-393); POTASSIUM 3.6 mmol/L (3.5-5.1); SGOT/AST 118 IU/L (3-35); SODIUM 142 mmol/L (136-145); TOTAL CELLS COUNTED 100 #CELLS
[2019-05-22 12:34] LABS: PLATELET SUFFICIENCY LOW (NORMAL); TOXIC GRANULATION SLIGHT
[2019-05-22 12:36] LABS: SGPT/ALT 70 U/L (12-78)
[2019-05-22 12:40] LABS: TROPONIN I < 0.015 ng/ml (<0.045)
[2019-05-22 21:30] LABS: BILIRUBIN NEGATIVE (NEGATIVE); BLOOD NEGATIVE (NEGATIVE); CLARITY CLEAR (CLEAR); COLOR YELLOW (YELLOW); GLUCOSE NEGATIVE (NEGATIVE); KETONE NEGATIVE (NEGATIVE); LEUKO ESTERASE NEGATIVE (NEGATIVE); NITRITE NEGATIVE (NEGATIVE); UROBILINOGEN 0.2 E.U./dl (0.2-1.0)
[2019-05-22 21:31] LABS: BACTERIA TRACE
[2019-05-23] VITALS: BP 76/46
[2019-05-23 01:30] VITALS: BP 113/65
[2019-05-23 07:37] LABS: HEMATOCRIT 32.1 % (42.0-52.0); HEMOGLOBIN 10.1 g/dl (14.0-18.0); MEAN CELL VOLUME 100.9 fl (80.0-94.0); MEAN CORPUSCULAR HGB 31.8 pg (27.0-31.0); MEAN CORPUSCULAR HGB CONC 31.5 g/dl (33.0-37.0); MEAN PLATELET VOLUME 10.4 fl (9.6-12.3); PLATELET COUNT AUTOMATED 104 10*3/uL (130-400); RED BLOOD COUNT 3.18 10*6/uL (4.50-5.90); RED CELL DISTRI WIDTH 18.2 % (0-14.5); WHITE BLOOD COUNT 8.4 10*3/uL (4.8-10.8)
[2019-05-23 07:52] LABS: ALBUMIN 1.3 gm/dl (3.1-4.5); CREATININE 1.64 mg/dL (0.70-1.30); POTASSIUM 3.7 mmol/L (3.5-5.1); TOTAL PROTEIN 6.1 gm/dL (6.4-8.2)
[2019-05-23 08:00] VITALS: BP 100/50
[2019-05-23 08:00] LABS: PLATELET SUFFICIENCY LOW (NORMAL); TOTAL CELLS COUNTED 100 #CELLS
[2019-05-23 08:01] LABS: POLYCHROMASIA SLIGHT
[2019-05-23 12:00] VITALS: BP 110/59
[2019-05-23 16:00] VITALS: BP 112/64
[2019-05-23 20:00] VITALS: BP 100/51
[2019-05-24] VITALS: BP 98/64
[2019-05-24 06:33] LABS: HEMATOCRIT 30.8 % (42.0-52.0); HEMOGLOBIN 9.7 g/dl (14.0-18.0); MEAN CORPUSCULAR HGB 31.5 pg (27.0-31.0); MEAN CORPUSCULAR HGB CONC 31.5 g/dl (33.0-37.0); MEAN PLATELET VOLUME 10.4 fl (9.6-12.3); PLATELET COUNT AUTOMATED 97 10*3/uL (130-400); RED BLOOD COUNT 3.08 10*6/uL (4.50-5.90); RED CELL DISTRI WIDTH 17.8 % (0-14.5); WHITE BLOOD COUNT 7.7 10*3/uL (4.8-10.8)
[2019-05-24 07:34] LABS: BASOPHILS 1 % (0-1); POLYCHROMASIA SLIGHT; TOTAL CELLS COUNTED 100 #CELLS
[2019-05-24 07:35] LABS: PLATELET SUFFICIENCY LOW (NORMAL); ROULEAUX SLIGHT; TOXIC GRANULATION SLIGHT
[2019-05-24 08:00] VITALS: BP 98/62
[2019-05-24 12:00] VITALS: BP 113/67
[2019-05-24 16:00] VITALS: BP 110/58
[2019-05-24 20:00] VITALS: BP 105/48
[2019-05-25] VITALS: BP 122/69
[2019-05-25 08:00] VITALS: BP 102/52
[2019-05-25 12:00] VITALS: BP 112/66
[2019-05-25 16:00] VITALS: BP 107/62
[2019-05-25 20:00] VITALS: BP 119/68
[2019-05-26] VITALS: BP 111/63
[2019-05-26 08:00] VITALS: BP 110/60; BP 114/70
[2019-05-26 12:00] VITALS: BP 122/60
[2019-05-26 16:00] VITALS: BP 114/59
== END 2019-05-26 19:45 | disposition short-term general hospital (02) | DRG 853 ==
LOC: ED 11:29 → EDHOLD 15:35 → 4E 15:35
PROVIDERS: Nurse Practitioner Family; ADMIT Internal Medicine
PROC: 0W9F0ZZ Drainage of Abdominal Wall, Open Approach (ICD-10-PCS; principal; 2019-05-22)
PROC: 0J980ZZ Drainage of Abdomen Subcutaneous Tissue and Fascia, Open Approach (ICD-10-PCS; principal; 2019-05-22)
DX: A41.9 Sepsis, unspecified organism (principal); E43 Unspecified severe protein-calorie malnutrition; I50.43 Acute on chronic combined systolic (congestive) and diastolic (congestive) heart failure; L02.211 Cutaneous abscess of abdominal wall; N17.9 Acute kidney failure, unspecified; Z68.43 Body mass index [BMI] 50.0-59.9, adult; F33.1 Major depressive disorder, recurrent, moderate; L03.311 Cellulitis of abdominal wall; M79.3 Panniculitis, unspecified; B96.89 Other specified bacterial agents as the cause of diseases classified elsewhere; E66.01 Morbid (severe) obesity due to excess calories; G89.29 Other chronic pain; M54.5 Low back pain; E11.65 Type 2 diabetes mellitus with hyperglycemia; R65.20 Severe sepsis without septic shock; I11.0 Hypertensive heart disease with heart failure; J44.9 Chronic obstructive pulmonary disease, unspecified; M10.9 Gout, unspecified; E78.5 Hyperlipidemia, unspecified; E03.9 Hypothyroidism, unspecified; G47.33 Obstructive sleep apnea (adult) (pediatric); I95.9 Hypotension, unspecified; S31.109A Unspecified open wound of abdominal wall, unspecified quadrant without penetration into peritoneal cavity, initial encounter; X58.XXXA Exposure to other specified factors, initial encounter; Y93.89 Activity, other specified; Y92.89 Other specified places as the place of occurrence of the external cause; Y99.8 Other external cause status; Z79.899 Other long term (current) drug therapy

== ENCOUNTER 2019-07-29 10:16 | Inpatient (IN) | payer MEDICARE ==
[2019-07-29] VITALS (12 sets, daily range): BP systolic 78–109; BP diastolic 00–58
[~2019-07-29] VITALS: Ht 182.8 cm; Wt 165.2 kg
[~2019-07-29 10:16] MED LIST changes: +PROAIR HFA8.5 GM INH
[2019-07-29 11:23] LABS: HEMATOCRIT 37.4 % (42.0-52.0); MEAN CELL VOLUME 101.1 fl (80.0-94.0); MEAN CORPUSCULAR HGB 31.4 pg (27.0-31.0); MEAN PLATELET VOLUME 10.7 fl (9.6-12.3); PLATELET COUNT AUTOMATED 100 10*3/uL (130-400); RED CELL DISTRI WIDTH 15.5 % (0-14.5); WHITE BLOOD COUNT 15.6 10*3/uL (4.8-10.8)
[2019-07-29 11:23] LABS: ABG BASE EXCESS -3.5 mmol/L (-2.0-2.0); ARTERIAL BLOOD GAS PH 7.397 (7.35-7.45)
[2019-07-29 11:34] LABS: ACT PARTIAL THROMBO TIME 24.8 SECONDS (20.0-32.1); INTERNATIONAL NORM RATIO 1.1 (2.0-3.5)
[2019-07-29 11:40] LABS: ALKALINE PHOSPHATASE 503 U/L (45-117); BUN 39 mg/dl (7-24); CHLORIDE 117 mmol/L (98-107); CREATININE 1.77 mg/dL (0.70-1.30); SGOT/AST 98 IU/L (3-35); SGPT/ALT 74 U/L (12-78); SODIUM 147 mmol/L (136-145); TOTAL PROTEIN 5.9 gm/dL (6.4-8.2)
[2019-07-29 11:46] LABS: TROPONIN I < 0.015 ng/ml (<0.045)
[2019-07-29 11:48] LABS: PLATELET SUFFICIENCY LOW (NORMAL); POLYCHROMASIA SLIGHT; TOTAL CELLS COUNTED 100 #CELLS; VACUOLATION OF NEUTROPHILS SLIGHT
[2019-07-29 12:23] LABS: BILIRUBIN NEGATIVE (NEGATIVE); BLOOD NEGATIVE (NEGATIVE); CLARITY SL CLOUDY (CLEAR); COLOR YELLOW (YELLOW); GLUCOSE NEGATIVE (NEGATIVE); KETONE NEGATIVE (NEGATIVE); LEUKO ESTERASE NEGATIVE (NEGATIVE); NITRITE NEGATIVE (NEGATIVE); UROBILINOGEN 0.2 E.U./dl (0.2-1.0)
[2019-07-29 12:30] LABS: BACTERIA 1+; MUCOUS TRACE
--- NOTE | 2019-07-29 13:00 | NUR ---
BGL 64 AT THIS TIME. CRACKERS AND JUICE PROVIDED. DR MOHAN NOTIFIED.
--- NOTE | 2019-07-29 14:45 | NUR ---
A 48, admitted to [facility], under the services of Dr. JAMAAL BURNETT,MIGUELANGEL Dennis with a diagnosis of SEPSIS,CELLULITIS. Chief complaint is FALL AT HOME. Patient arrived via ambulance from ER. Monitor applied. Initial assessment completed. Vital signs taken and recorded. DR. JAMAAL BURNETT,MIGUELANGEL Dennis notified of admission to the unit. Orders received. See assessment for past medical history, medications and allergies. Patient and/or family oriented to unit. [facility] visitation policy reviewed. Clothing/patient valuable form completed. ABDI KIDD
[2019-07-29] MEDS ORDERED: TORSEMIDE100 MG PO (15:23)
[2019-07-29] MEDS ORDERED: TORSEMIDE20 MG PO (15:24)
[2019-07-29] MEDS ORDERED: ALDACTONE100 MG PO (15:25)
[2019-07-29] MEDS ORDERED: KLOR-CON 1010 ME1 PO (15:26)
[2019-07-29] MEDS ORDERED: PERCOCET 10-321 EACH PO (15:27)
[2019-07-29] MEDS ORDERED: CELEXA10 MG PO (15:38)
[2019-07-29] MEDS ORDERED: COLCHICINE0.6 M2 PO (15:39)
--- NOTE | 2019-07-29 16:12 | NUR ---
DR. MISHRA NOTIFIED OF CONSULT
--- NOTE | 2019-07-29 18:36 | NUR ---
MEDICATED WITH OXYCODONE ORDERED FOR COMPLAINTS OF LOWER BACK PAIN. RATES PAIN A 8 ON A PAIN SCALE OF 1-10
--- NOTE | 2019-07-29 19:13 | NUR ---
DROWSY, VOICES THAT OXYCODONE WAS EFFECTIVE FOR PAIN
--- NOTE | 2019-07-29 19:30 | NUR ---
PATIENT HAS WOUND VAC FROM HOME, LOCATION TO MID ABDOMEN REGION. CANNISTER CAHNGED AND CONNECGED TO POWER OUTLET. AREA IS INTACT AND FUNCTIONING PROPERLY AT 1255MMHG. PATIENT STATED NO COMPLAINTS AT THIS TIME. RESP ARE ERND ON 3L NC SPO2 @ 100%. PATIENT REPOSITIONED UP IN BED. BED IS LOCKED IN LOWEST POSITION. CALL LIGHT WITHIN REACH
--- NOTE | 2019-07-29 22:45 | NUR ---
PATIENT RESTING QUIETLY IN BED. NO DISTRESS NOTED, EYES CLOSED. CALL LIGHT WITHIN REACH
[2019-07-30] VITALS: BP 96/48
--- NOTE | 2019-07-30 00:45 | NUR ---
PATIENT HAD LARGE BOWEL MOVEMENT. BAHMAN-CARE PROVIDED AND BATH GIVEN. PATIENT REPOSITIONED UP IN BED. WILL CONTINUE TO MONITOR
[2019-07-30 04:00] VITALS: BP 109/60
[2019-07-30 05:12] LABS: CREATININE 1.61 mg/dL (0.70-1.30); POTASSIUM 3.8 mmol/L (3.5-5.1)
[2019-07-30 06:15] LABS: HEMATOCRIT 31.9 % (42.0-52.0); MEAN CELL VOLUME 102.9 fl (80.0-94.0); MEAN CORPUSCULAR HGB 31.3 pg (27.0-31.0); MEAN CORPUSCULAR HGB CONC 30.4 g/dl (33.0-37.0); MEAN PLATELET VOLUME 10.9 fl (9.6-12.3); PLATELET COUNT AUTOMATED 85 10*3/uL (130-400); RED CELL DISTRI WIDTH 15.9 % (0-14.5); WHITE BLOOD COUNT 7.9 10*3/uL (4.8-10.8)
[2019-07-30 07:16] LABS: BASOPHILS 1 % (0-1); TOTAL CELLS COUNTED 100 #CELLS
[2019-07-30 07:17] LABS: PLATELET SUFFICIENCY LOW (NORMAL); ROULEAUX SLIGHT
--- NOTE | 2019-07-30 07:49 | NUR ---
PHYSICAL THERAPY Screen and PT eval received will follow thank you Sarah Haider PT
[2019-07-30 08:00] VITALS: BP 95/54
--- NOTE | 2019-07-30 08:08 | NUR ---
Nursing screen received and chart reviewed. Patient admitted from home following a fall at home. If patient has a decline in ADLs, transfers, or mobility, please send OT orders. Thank you. Nicol Gallegos, OTR/L
--- NOTE | 2019-07-30 08:24 | NUR ---
ANABELLA MALIK [id number] Please refer to the physician's history and physical for past medical history, comorbid conditions, and allergies. Diagnosis: SEPTIC SHOCK,ABDOMINAL WALL CELLULITIS Leonidas Score: 15,AT RISK WOUND DESCRIPTIONS: Wound Number: 1 Location of the wound: Right proximal abdomen Type of wound: surgical Thickness: Full Size: 0.6cm x 3.6cm x 7.2cm Tunneling: none Undermining: none Sinus Tract: none Presence of Exudate: Serousanguineous Amount: Moderate Color: Red Odor: Foul Periwound Skin Appearance: Erythema, warmth Wound edges: approximated Pain (associated with wound): none at time of assessment How does patient state this happened? pt stated this has been ongoing and he went to [facility] and they were unable to do surgery due to the infection Wound Number: 2 Location of the wound: Right distal abdomen Type of wound: surgical Thickness: Full Size: 1.5cm x 6.0cm x 3.5cm Tunneling: none Underminin.0cm 3 o'clock to 5 o'clock Sinus Tract: none Presence of Exudate: Serousanguineous Amount: Moderate Color: Red Odor: Foul Periwound Skin Appearance: Erythema, warmth Wound edges: approximated Pain (associated with wound): none at time of assessment How does patient state this happened? pt stated this has been ongoing and he went to [facility] and they were unable to do surgery due to the infection Wound Number: 3 Location of the wound: Right lateral abdomen Thickness: Full Size: 0.9cm x 1.9cm x <0.1cm Tunneling: none Undermining: none Sinus Tract: none Presence of Exudate: none Amount: none Color: Red, Black Odor: none Periwound Skin Appearance: Erythema Wound edges: approximated Pain (associated with wound): none at time of assessment How does patient state this happened? pt stated this has been ongoing and he went to [facility] and they were unable to do surgery due to the infection Surface the patient is resting on: Rental SKIN PREVENTION RECOMMENDATION: 1. Pressure redistribution support surface as appropriate 2. Elevate heels 3. Remove boots/TEDS every shift and reapply 4. Head of bed 30 degrees as tolerated 5. Assess nutrition and hydration 6. Manage moisture 7. Avoid the use of containment devices while in bed 8. Use absorptive products on surfaces limit layers of linens on bed 9. Turn and reposition every 1-2 hours in bed and every 1 hour in chair as tolerated 10. Weight shifts every 15 minutes while up in chair 11. Offloading with pillows or device to keep heels elevated off bed 12. Monitor skin at least every shift 13. Inspect under medical devices twice a day WOUND TREATMENT RECOMMENDATIONS: D/C wound vac Dr. Rg and ID already on consult. Cleanse right proximal abdomen and right distal abdomen with nss and apply sureprep around the wound lightly pack with kerlix daily and prn for soiling. Full thickness guidelines: Cleanse right lateral abdomen with nss and apply sureprep around the wound therahoney to wound bed and cover with optifoam gentle. Patient is unsure where he is going to follow up upon discharge at this time.
--- NOTE | 2019-07-30 08:33 | NUR ---
DR MISHRA IN TO SEE PT. HERACLIO AND KRISTYN, WOUND CARE NURSES, WERE HERE TAKING PT'S WOUND VAC OFF TO LOOK AT PT'S ABDOMIAL WOUNDS. DR MISHRA WAS ABLE TO VIEW PT'S WOUNDS ALSO. ORDERS RECEIVED FROM DR MISHRA FOR WOUND CULTURES. HERACLIO, CALLED AND SPOKE WITH DR TOLEDO REGARDING PT'S WOUNDS. NEW ORDERS RECEIVED.
--- NOTE | 2019-07-30 09:08 | NUR ---
DR TOLEDO IN TO SEE PT. DR TOLEDO VIEWED PT'S ABD. WOUNDS. HE SUGGESTED TRANSFER BACK TO [facility]. WILL UPDATE DR HINTON.
--- NOTE | 2019-07-30 10:00 | NUR ---
MEDICATED PT PER PRN ORDER WITH PERCOCET FOR C/O LOWER BACK PAIN THAT RATES 8/10 ON PAIN SCALE.
--- NOTE | 2019-07-30 10:50 | NUR ---
PT STATES RELIEF OF PAIN WITH EARLIER PERCOCET.
[2019-07-30 12:00] VITALS: BP 112/56
--- NOTE | 2019-07-30 12:00 | NUR ---
WOUND PICTURES TAKEN. PT REFUSED TO LET ME TAKE PACKING OUT OF WOUNDS FOR THE PICTURES.
--- NOTE | 2019-07-30 12:06 | NUR ---
PHYSICAL THERAPY Physical Therapy evaluation completed on 4, [facility] with full evaluation to follow. Moderate complexity PT evaluation per chart review and evaluation, [id number]. Recommend physical therapy per plan of care and SNF upon discharge. Thank you for this referral. Jazzmine Hinds,PT,DPT.
--- NOTE | 2019-07-30 12:12 | NUR ---
PHYSICAL THERAPY HERE TO WORK WITH PT.
--- NOTE | 2019-07-30 13:17 | NUR ---
DR HINTON IN TO SEE PT. UPDATED HIM ON PT'S CONDITION AND DR TOLEDO'S REQUEST FOR PT TRANSFER TO [facility]. REFERRAL MADE TO [facility].
--- NOTE | 2019-07-30 14:41 | NUR ---
PT RESTING. NO ACUTE DISTRESS NOTED.
[2019-07-30] MEDS ORDERED: NEURONTIN300 MG PO (14:51)
--- NOTE | 2019-07-30 15:06 | NUR ---
PT IS BEING TRANSFERRED TO [facility]. NO NEEDS AT THIS TIME.
[2019-07-30] MEDS ORDERED: BUMETANIDE2 MG PO (15:17)
[2019-07-30 16:00] VITALS: BP 124/68
--- NOTE | 2019-07-30 16:30 | NUR ---
DISCHARGE PICTURES NOT TAKEN DUE TO ADMISSION PICTURES TAKEN LESS THAN 24 HOURS PRIOR TO TRANSFER. PT'S BEDSIDE GLUCOSE 174. INSULIN COVERAGE HELD PER PT REQUEST DUE TO TRANSFER.
--- NOTE | 2019-07-30 17:03 | NUR ---
PT TRANSFERED TO [facility].
--- NOTE | 2019-07-30 17:08 | NUR ---
PT'S SISTER,ZORAN, UPDATED ON PT'S TRANSFER AND ROOM NUMBER AT [facility].
--- NOTE | 2019-07-30 17:21 | NUR ---
PT REPORT GIVEN TO RECEIVING NURSE AT [facility].
== END 2019-07-30 16:52 | disposition short-term general hospital (02) | DRG 871 ==
LOC: ED 10:16 → ICCU 13:31
PROVIDERS: Emergency Medicine; ADMIT Internal Medicine
DX: A41.9 Sepsis, unspecified organism (principal); E43 Unspecified severe protein-calorie malnutrition; N17.0 Acute kidney failure with tubular necrosis; R65.21 Severe sepsis with septic shock; L02.211 Cutaneous abscess of abdominal wall; L03.311 Cellulitis of abdominal wall; Z68.42 Body mass index [BMI] 45.0-49.9, adult; F33.1 Major depressive disorder, recurrent, moderate; I50.42 Chronic combined systolic (congestive) and diastolic (congestive) heart failure; I13.0 Hypertensive heart and chronic kidney disease with heart failure and stage 1 through stage 4 chronic kidney disease, or unspecified chronic kidney disease; E66.01 Morbid (severe) obesity due to excess calories; K21.0 Gastro-esophageal reflux disease with esophagitis; E03.9 Hypothyroidism, unspecified; R62.7 Adult failure to thrive; M47.816 Spondylosis without myelopathy or radiculopathy, lumbar region; G89.29 Other chronic pain; J44.9 Chronic obstructive pulmonary disease, unspecified; E11.649 Type 2 diabetes mellitus with hypoglycemia without coma; E11.22 Type 2 diabetes mellitus with diabetic chronic kidney disease; N18.9 Chronic kidney disease, unspecified; E77.8 Other disorders of glycoprotein metabolism; E78.5 Hyperlipidemia, unspecified; M10.9 Gout, unspecified; G47.33 Obstructive sleep apnea (adult) (pediatric); Z98.84 Bariatric surgery status; Z87.891 Personal history of nicotine dependence; Z82.49 Family history of ischemic heart disease and other diseases of the circulatory system; Z80.6 Family history of leukemia; Z83.3 Family history of diabetes mellitus; Z84.89 Family history of other specified conditions; Z83.79 Family history of other diseases of the digestive system

== ENCOUNTER 2019-09-24 11:39 | Inpatient (IN) | payer MEDICARE ==
[~2019-09-24] VITALS: Ht 183 cm; Wt 157.9 kg
[2019-09-24] VITALS (10 sets, daily range): BP systolic 97–132; BP diastolic 32–63
[~2019-09-24 11:39] MED LIST changes: +CELEXA10 MG PO; +COLCHICINE0.6 M2 PO; +KLOR-CON 1010 ME1 PO
[2019-09-24 12:33] LABS: HEMATOCRIT 37.7 % (42.0-52.0); MEAN CELL VOLUME 95.9 fl (80.0-94.0); MEAN CORPUSCULAR HGB 29.5 pg (27.0-31.0); MEAN CORPUSCULAR HGB CONC 30.8 g/dl (33.0-37.0); MEAN PLATELET VOLUME 10.8 fl (9.6-12.3); PLATELET COUNT AUTOMATED 105 10*3/uL (130-400); RED BLOOD COUNT 3.93 10*6/uL (4.50-5.90); RED CELL DISTRI WIDTH 16.2 % (0-14.5)
[2019-09-24 12:51] LABS: ALBUMIN 2.3 gm/dl (3.1-4.5); ALKALINE PHOSPHATASE 426 U/L (45-117); BUN 32 mg/dl (7-24); CHLORIDE 113 mmol/L (98-107); CREATININE 1.17 mg/dL (0.70-1.30); POTASSIUM 3.6 mmol/L (3.5-5.1); SGOT/AST 65 IU/L (3-35); SGPT/ALT 60 U/L (12-78); SODIUM 144 mmol/L (136-145); TOTAL PROTEIN 6.7 gm/dL (6.4-8.2)
[2019-09-24 12:53] LABS: TROPONIN I < 0.015 ng/ml (<0.045)
[2019-09-24 12:54] LABS: ACT PARTIAL THROMBO TIME 25.5 SECONDS (20.0-32.1); INTERNATIONAL NORM RATIO 1.1 (2.0-3.5)
[2019-09-24 13:11] LABS: BILIRUBIN NEGATIVE (NEGATIVE); BLOOD NEGATIVE (NEGATIVE); CLARITY CLEAR (CLEAR); COLOR YELLOW (YELLOW); GLUCOSE NEGATIVE (NEGATIVE); KETONE NEGATIVE (NEGATIVE); LEUKO ESTERASE NEGATIVE (NEGATIVE); NITRITE NEGATIVE (NEGATIVE); SPECIFIC GRAVITY 1.015 (1.005-1.030); UROBILINOGEN 0.2 E.U./dl (0.2-1.0)
[2019-09-24 13:16] LABS: BACTERIA TRACE; MUCOUS 2+
[2019-09-24 13:29] LABS: PLATELET SUFFICIENCY LOW (NORMAL); TOTAL CELLS COUNTED 100 #CELLS
[2019-09-24 13:49] LABS: ABG BASE EXCESS -0.7 mmol/L (-2.0-2.0); ARTERIAL BLOOD GAS PH 7.411 (7.35-7.45)
[2019-09-24] MEDS ORDERED: Zaroxolyn,Diul2.5 MG PO (17:19)
[2019-09-24] MEDS ORDERED: MIRALAX POWDER17 G1 PO (17:20)
[2019-09-24] MEDS ORDERED: COMPLETE SENIO1 EACH PO (17:21)
[2019-09-24] MEDS ORDERED: NYSTATIN1 EAC3 MC (17:22)
[2019-09-24] MEDS ORDERED: ROPINIROLE HYDRO2 MG PO (17:26)
[2019-09-24] MEDS ORDERED: CYCLOBENZAPRINE15 MG PO (17:32)
[2019-09-24] MEDS ORDERED: SPIRONOLACTONE100 MG PO (17:33)
[2019-09-24] MEDS ORDERED: TORSEMIDE100 MG PO (17:34)
[2019-09-25] VITALS: BP 117/69
[2019-09-25 05:45] LABS: ALBUMIN 1.9 gm/dl (3.1-4.5); ALKALINE PHOSPHATASE 341 U/L (45-117); BUN 34 mg/dl (7-24); CHLORIDE 113 mmol/L (98-107); CREATININE 1.25 mg/dL (0.70-1.30); POTASSIUM 3.7 mmol/L (3.5-5.1); SGOT/AST 48 IU/L (3-35); SGPT/ALT 48 U/L (12-78); SODIUM 144 mmol/L (136-145)
[2019-09-25 06:14] LABS: BASO % 0.3 % (0.0-1.0); EOS % 0.3 % (1.0-4.0); HEMATOCRIT 34.1 % (42.0-52.0); LYMPH # 0.4 10*3/uL (1.3-4.4); LYMPH % 5.8 % (27.0-41.0); MEAN CELL VOLUME 97.7 fl (80.0-94.0); MEAN CORPUSCULAR HGB 29.2 pg (27.0-31.0); MEAN CORPUSCULAR HGB CONC 29.9 g/dl (33.0-37.0); MEAN PLATELET VOLUME 11.4 fl (9.6-12.3); MONO # 0.4 10*3/uL (0.1-1.0); MONO % 5.1 % (3.0-9.0); NEUT # 6.7 10*3/uL (2.3-7.9); PLATELET COUNT AUTOMATED 94 10*3/uL (130-400); RED BLOOD COUNT 3.49 10*6/uL (4.50-5.90); RED CELL DISTRI WIDTH 16.6 % (0-14.5); WHITE BLOOD COUNT 7.7 10*3/uL (4.8-10.8)
[2019-09-25 07:36] VITALS: BP 126/65
[2019-09-25 12:00] VITALS: BP 125/97
[2019-09-25 16:00] VITALS: BP 130/68
[2019-09-25 20:00] VITALS: BP 137/74
[2019-09-26] VITALS: BP 115/63
[2019-09-26 08:00] VITALS: BP 111/72
[2019-09-26 12:00] VITALS: BP 145/66
[2019-09-26 16:00] VITALS: BP 142/65
[2019-09-26 20:00] VITALS: BP 113/47
[2019-09-27] VITALS: BP 120/62
[2019-09-27 08:00] VITALS: BP 154/74
[2019-09-27 12:00] VITALS: BP 140/68
[2019-09-27 16:00] VITALS: BP 139/64
[2019-09-27 20:00] VITALS: BP 113/58
[2019-09-28] VITALS: BP 111/55
[2019-09-28] MEDS ORDERED: Lantus SC (06:26)
[2019-09-28] MEDS ORDERED: DOXYCYCLINE100 M3 PO (06:36)
[2019-09-28 07:19] LABS: BASO % 0.6 % (0.0-1.0); EOS # 0.1 10*3/uL (0.0-0.4); EOS % 2.1 % (1.0-4.0); LYMPH # 0.6 10*3/uL (1.3-4.4); LYMPH % 11.8 % (27.0-41.0); MEAN CELL VOLUME 95.6 fl (80.0-94.0); MEAN CORPUSCULAR HGB 29.2 pg (27.0-31.0); MEAN CORPUSCULAR HGB CONC 30.6 g/dl (33.0-37.0); MEAN PLATELET VOLUME 11.1 fl (9.6-12.3); MONO # 0.4 10*3/uL (0.1-1.0); MONO % 8.7 % (3.0-9.0); NEUT # 3.7 10*3/uL (2.3-7.9); NEUT % 76.2 % (47.0-73.0); PLATELET COUNT AUTOMATED 108 10*3/uL (130-400); RED BLOOD COUNT 3.66 10*6/uL (4.50-5.90); RED CELL DISTRI WIDTH 16.2 % (0-14.5); WHITE BLOOD COUNT 4.9 10*3/uL (4.8-10.8)
[2019-09-28 07:42] LABS: ALBUMIN 1.9 gm/dl (3.1-4.5); ALKALINE PHOSPHATASE 306 U/L (45-117); BUN 36 mg/dl (7-24); CHLORIDE 110 mmol/L (98-107); CREATININE 1.18 mg/dL (0.70-1.30); POTASSIUM 3.5 mmol/L (3.5-5.1); SGOT/AST 51 IU/L (3-35); SGPT/ALT 44 U/L (12-78); SODIUM 143 mmol/L (136-145); TOTAL PROTEIN 6.4 gm/dL (6.4-8.2)
== END 2019-09-28 11:45 | disposition home or self-care (01) | DRG 871 ==
LOC: ED 11:39 → ICCU 13:39 → EDHOLD 13:39 → 4E 13:39 → ICCU 14:27 → 4E 09-26 10:51
PROVIDERS: Emergency Medicine; ADMIT Internal Medicine
DX: A41.9 Sepsis, unspecified organism (principal); E43 Unspecified severe protein-calorie malnutrition; J96.92 Respiratory failure, unspecified with hypercapnia; I50.23 Acute on chronic systolic (congestive) heart failure; E87.2 Acidosis; Z68.43 Body mass index [BMI] 50.0-59.9, adult; E66.2 Morbid (severe) obesity with alveolar hypoventilation; L03.311 Cellulitis of abdominal wall; I13.0 Hypertensive heart and chronic kidney disease with heart failure and stage 1 through stage 4 chronic kidney disease, or unspecified chronic kidney disease; M79.3 Panniculitis, unspecified; R65.20 Severe sepsis without septic shock; R62.7 Adult failure to thrive; E03.9 Hypothyroidism, unspecified; M54.5 Low back pain; G89.29 Other chronic pain; F32.9 Major depressive disorder, single episode, unspecified; E11.65 Type 2 diabetes mellitus with hyperglycemia; E11.22 Type 2 diabetes mellitus with diabetic chronic kidney disease; N18.2 Chronic kidney disease, stage 2 (mild); E78.5 Hyperlipidemia, unspecified; K21.9 Gastro-esophageal reflux disease without esophagitis; M10.9 Gout, unspecified; K74.60 Unspecified cirrhosis of liver; D69.59 Other secondary thrombocytopenia; J45.909 Unspecified asthma, uncomplicated; Z98.84 Bariatric surgery status; Z87.891 Personal history of nicotine dependence; Z82.49 Family history of ischemic heart disease and other diseases of the circulatory system; Z83.3 Family history of diabetes mellitus; Z79.899 Other long term (current) drug therapy

== ENCOUNTER 2019-10-05 16:11 | Inpatient (IN) | payer MEDICARE ==
[~2019-10-05] VITALS: Ht 177.8 cm; Wt 174.2 kg
[~2019-10-05 16:11] MED LIST changes: +COMPLETE SENIO1 EACH PO; +CYCLOBENZAPRINE15 MG PO; +DOXYCYCLINE100 M3 PO; +MIRALAX POWDER17 G1 PO; +NYSTATIN1 EAC3 MC; +ROPINIROLE HYDRO2 MG PO; +SPIRONOLACTONE100 MG PO
[2019-10-05 16:13] VITALS: BP 125/57
[2019-10-05 17:07] LABS: MEAN CELL VOLUME 94.4 fl (80.0-94.0); MEAN CORPUSCULAR HGB 29.2 pg (27.0-31.0); MEAN CORPUSCULAR HGB CONC 30.9 g/dl (33.0-37.0); MEAN PLATELET VOLUME 11.1 fl (9.6-12.3); PLATELET COUNT AUTOMATED 131 10*3/uL (130-400); RED BLOOD COUNT 3.39 10*6/uL (4.50-5.90); RED CELL DISTRI WIDTH 15.5 % (0-14.5); WHITE BLOOD COUNT 8.5 10*3/uL (4.8-10.8)
[2019-10-05 17:19] LABS: ALBUMIN 1.6 gm/dl (3.1-4.5); ALKALINE PHOSPHATASE 404 U/L (45-117); BUN 39 mg/dl (7-24); CHLORIDE 100 mmol/L (98-107); CREATININE 1.58 mg/dL (0.70-1.30); POTASSIUM 4.3 mmol/L (3.5-5.1); SGOT/AST 41 IU/L (3-35); SGPT/ALT 46 U/L (12-78); SODIUM 132 mmol/L (136-145); TOTAL PROTEIN 6.7 gm/dL (6.4-8.2)
[2019-10-05 17:20] LABS: ACT PARTIAL THROMBO TIME 26.1 SECONDS (20.0-32.1); INTERNATIONAL NORM RATIO 1.2 (2.0-3.5); TROPONIN I < 0.015 ng/ml (<0.045)
[2019-10-05 17:29] LABS: ABG BASE EXCESS -1.6 mmol/L (-2.0-2.0); ARTERIAL BLOOD GAS PH 7.402 (7.35-7.45)
[2019-10-05 17:32] LABS: TOTAL CELLS COUNTED 100 #CELLS
[2019-10-05 17:33] LABS: PLATELET SUFFICIENCY NORMAL (NORMAL); POLYCHROMASIA SLIGHT; TOXIC GRANULATION SLIGHT
[2019-10-05 18:31] VITALS: BP 112/63
[2019-10-05 18:47] LABS: BILIRUBIN NEGATIVE (NEGATIVE); BLOOD NEGATIVE (NEGATIVE); CLARITY SL CLOUDY (CLEAR); COLOR YELLOW (YELLOW); GLUCOSE 3+ (NEGATIVE); KETONE NEGATIVE (NEGATIVE); SPECIFIC GRAVITY 1.015 (1.005-1.030)
[2019-10-05 18:48] LABS: LEUKO ESTERASE NEGATIVE (NEGATIVE); NITRITE NEGATIVE (NEGATIVE); UROBILINOGEN 0.2 E.U./dl (0.2-1.0)
[2019-10-05 18:58] LABS: BACTERIA 2+; MUCOUS 1+; YEAST 1+
[2019-10-05 20:30] VITALS: BP 118/71
[2019-10-05 20:40] VITALS: BP 140/61
[2019-10-05] MEDS ORDERED: OXYGEN NAS (23:09)
[2019-10-06] VITALS: BP 121/63
[2019-10-06 08:00] VITALS: BP 108/54
[2019-10-06 16:00] VITALS: BP 114/56
[2019-10-07] VITALS: BP 134/52
[2019-10-07 08:00] VITALS: BP 101/50
[2019-10-07 16:00] VITALS: BP 121/54
[2019-10-07 20:00] VITALS: BP 118/59
[2019-10-08] VITALS: BP 137/87
[2019-10-08 04:45] VITALS: BP 137/80
[2019-10-08 05:19] LABS: HEMATOCRIT 33.9 % (42.0-52.0); MEAN CELL VOLUME 95.2 fl (80.0-94.0); MEAN CORPUSCULAR HGB 28.9 pg (27.0-31.0); MEAN CORPUSCULAR HGB CONC 30.4 g/dl (33.0-37.0); MEAN PLATELET VOLUME 10.7 fl (9.6-12.3); PLATELET COUNT AUTOMATED 148 10*3/uL (130-400); RED BLOOD COUNT 3.56 10*6/uL (4.50-5.90); RED CELL DISTRI WIDTH 15.4 % (0-14.5)
[2019-10-08 05:31] LABS: CREATININE 1.57 mg/dL (0.70-1.30); POTASSIUM 4.9 mmol/L (3.5-5.1)
[2019-10-08 05:37] LABS: BURR CELLS FEW; PLATELET SUFFICIENCY NORMAL (NORMAL); TOTAL CELLS COUNTED 100 #CELLS
[2019-10-08 08:00] VITALS: BP 115/60
[2019-10-08 12:00] VITALS: BP 113/60
[2019-10-08 18:00] VITALS: BP 108/54
[2019-10-09] VITALS: BP 105/54
[2019-10-09 05:38] LABS: CREATININE 1.53 mg/dL (0.70-1.30); POTASSIUM 4.5 mmol/L (3.5-5.1)
[2019-10-09 05:50] LABS: HEMATOCRIT 34.1 % (42.0-52.0); MEAN CELL VOLUME 92.7 fl (80.0-94.0); MEAN CORPUSCULAR HGB 29.1 pg (27.0-31.0); MEAN CORPUSCULAR HGB CONC 31.4 g/dl (33.0-37.0); MEAN PLATELET VOLUME 11.1 fl (9.6-12.3); PLATELET COUNT AUTOMATED 159 10*3/uL (130-400); RED BLOOD COUNT 3.68 10*6/uL (4.50-5.90); RED CELL DISTRI WIDTH 15.4 % (0-14.5); WHITE BLOOD COUNT 8.4 10*3/uL (4.8-10.8)
[2019-10-09 06:13] LABS: TOTAL CELLS COUNTED 100 #CELLS
[2019-10-09 06:14] LABS: PLATELET SUFFICIENCY NORMAL (NORMAL); POLYCHROMASIA SLIGHT
[2019-10-09 08:00] VITALS: BP 128/66
[2019-10-09 16:00] VITALS: BP 137/66
[2019-10-09 20:00] VITALS: BP 118/60
[2019-10-10] VITALS (42 sets, daily range): BP systolic 72–120; BP diastolic 47–69
[2019-10-10 07:21] LABS: HEMATOCRIT 36.8 % (42.0-52.0); MEAN CELL VOLUME 94.4 fl (80.0-94.0); MEAN CORPUSCULAR HGB 28.7 pg (27.0-31.0); MEAN CORPUSCULAR HGB CONC 30.4 g/dl (33.0-37.0); MEAN PLATELET VOLUME 10.7 fl (9.6-12.3); PLATELET COUNT AUTOMATED 170 10*3/uL (130-400); RED CELL DISTRI WIDTH 15.5 % (0-14.5); WHITE BLOOD COUNT 5.6 10*3/uL (4.8-10.8)
[2019-10-10 08:17] LABS: TOTAL CELLS COUNTED 100 #CELLS
[2019-10-10 08:18] LABS: PLATELET SUFFICIENCY NORMAL (NORMAL)
[2019-10-10 15:32] LABS: ABG BASE EXCESS -2.8 mmol/L (-2.0-2.0); ARTERIAL BLOOD GAS PH 7.342 (7.35-7.45)
[2019-10-10 17:32] LABS: HEMATOCRIT 35.7 % (42.0-52.0); MEAN CORPUSCULAR HGB 28.9 pg (27.0-31.0); MEAN CORPUSCULAR HGB CONC 31.7 g/dl (33.0-37.0); MEAN PLATELET VOLUME 10.8 fl (9.6-12.3); RED BLOOD COUNT 3.91 10*6/uL (4.50-5.90); RED CELL DISTRI WIDTH 16.2 % (0-14.5); WHITE BLOOD COUNT 14.3 10*3/uL (4.8-10.8)
[2019-10-10 17:37] LABS: MEAN CELL VOLUME 91.3 fl (80.0-94.0); PLATELET COUNT AUTOMATED 249 10*3/uL (130-400)
[2019-10-10 17:57] LABS: ALBUMIN 1.2 gm/dl (3.1-4.5); ALKALINE PHOSPHATASE 354 U/L (45-117); BASOPHILS 1 % (0-1); BUN 50 mg/dl (7-24); CHLORIDE 109 mmol/L (98-107); CREATININE 1.48 mg/dL (0.70-1.30); POTASSIUM 4.8 mmol/L (3.5-5.1); SGOT/AST 45 IU/L (3-35); SGPT/ALT 26 U/L (12-78); SODIUM 141 mmol/L (136-145); TOTAL CELLS COUNTED 100 #CELLS; TOTAL PROTEIN 5.6 gm/dL (6.4-8.2)
[2019-10-10 17:58] LABS: BURR CELLS MODERATE; PLATELET SUFFICIENCY NORMAL (NORMAL); POLYCHROMASIA SLIGHT
[2019-10-10 18:04] LABS: ABG BASE EXCESS -1.7 mmol/L (-2.0-2.0); ARTERIAL BLOOD GAS PH 7.389 (7.35-7.45)
[2019-10-11] VITALS (97 sets, daily range): BP systolic 78–129; BP diastolic 45–70
[2019-10-11 06:06] LABS: CREATININE 1.82 mg/dL (0.70-1.30); POTASSIUM 5.2 mmol/L (3.5-5.1)
[2019-10-11 06:39] LABS: HEMATOCRIT 38.7 % (42.0-52.0); MEAN CELL VOLUME 91.5 fl (80.0-94.0); MEAN CORPUSCULAR HGB 28.4 pg (27.0-31.0); MEAN PLATELET VOLUME 10.4 fl (9.6-12.3); NUCLEATED RED BLOOD CELL 0.1 10*3/uL (0.0-0.0); NUCLEATED RED BLOOD CELL 0.2 % (0.0-0.0); RED BLOOD COUNT 4.23 10*6/uL (4.50-5.90); RED CELL DISTRI WIDTH 17.2 % (0-14.5); WHITE BLOOD COUNT 30.8 10*3/uL (4.8-10.8)
[2019-10-11 06:43] LABS: PLATELET COUNT AUTOMATED 401 10*3/uL (130-400)
[2019-10-11 07:17] LABS: ARTERIAL BLOOD GAS PH 7.401 (7.35-7.45)
[2019-10-11 07:30] LABS: PLATELET SUFFICIENCY HIGH (NORMAL); TOTAL CELLS COUNTED 100 #CELLS
[2019-10-11 11:21] LABS: ABG BASE EXCESS -4.3 mmol/L (-2.0-2.0); ARTERIAL BLOOD GAS PH 7.383 (7.35-7.45)
[2019-10-12] VITALS (96 sets, daily range): BP systolic 92–137; BP diastolic 42–67
[2019-10-12 08:17] LABS: BASO # 0.2 10*3/uL (0.0-0.1); BASO % 0.8 % (0.0-1.0); EOS # 0.1 10*3/uL (0.0-0.4); EOS % 0.6 % (1.0-4.0); LYMPH # 1.4 10*3/uL (1.3-4.4); LYMPH % 7.1 % (27.0-41.0); MEAN CORPUSCULAR HGB 28.8 pg (27.0-31.0); MEAN CORPUSCULAR HGB CONC 31.3 g/dl (33.0-37.0); MEAN PLATELET VOLUME 10.4 fl (9.6-12.3); MONO # 1.1 10*3/uL (0.1-1.0); MONO % 5.6 % (3.0-9.0); NEUT # 14.3 10*3/uL (2.3-7.9); NEUT % 72.2 % (47.0-73.0); NUCLEATED RED BLOOD CELL 0.2 % (0.0-0.0); RED BLOOD COUNT 3.37 10*6/uL (4.50-5.90); RED CELL DISTRI WIDTH 16.8 % (0-14.5); WHITE BLOOD COUNT 19.8 10*3/uL (4.8-10.8)
[2019-10-12 08:18] LABS: PLATELET COUNT AUTOMATED 193 10*3/uL (130-400)
[2019-10-12 08:28] LABS: ALBUMIN 1.2 gm/dl (3.1-4.5); CREATININE 2.15 mg/dL (0.70-1.30); TOTAL PROTEIN 5.8 gm/dL (6.4-8.2)
[2019-10-12 08:45] LABS: PLATELET SUFFICIENCY NORMAL (NORMAL); TOTAL CELLS COUNTED 100 #CELLS
[2019-10-12 17:19] LABS: BILIRUBIN NEGATIVE (NEGATIVE); BLOOD NEGATIVE (NEGATIVE); CLARITY CLEAR (CLEAR); COLOR YELLOW (YELLOW); GLUCOSE NEGATIVE (NEGATIVE); KETONE NEGATIVE (NEGATIVE); LEUKO ESTERASE NEGATIVE (NEGATIVE); NITRITE NEGATIVE (NEGATIVE); SPECIFIC GRAVITY 1.015 (1.005-1.030); UROBILINOGEN 0.2 E.U./dl (0.2-1.0)
[2019-10-12 17:26] LABS: BACTERIA 1+; CALCIUM OXALATE CRYSTALS TRACE
[2019-10-12 17:27] LABS: YEAST 2+
[2019-10-13] VITALS (27 sets, daily range): BP systolic 97–117; BP diastolic 42–56
[2019-10-13 13:16] LABS: MEAN CELL VOLUME 92.9 fl (80.0-94.0); MEAN PLATELET VOLUME 10.3 fl (9.6-12.3)
[2019-10-13 13:21] LABS: HEMATOCRIT 27.6 % (42.0-52.0); MEAN CORPUSCULAR HGB 28.6 pg (27.0-31.0); MEAN CORPUSCULAR HGB CONC 30.8 g/dl (33.0-37.0); PLATELET COUNT AUTOMATED 136 10*3/uL (130-400); RED BLOOD COUNT 2.97 10*6/uL (4.50-5.90); RED CELL DISTRI WIDTH 16.3 % (0-14.5); WHITE BLOOD COUNT 10.5 10*3/uL (4.8-10.8)
[2019-10-13 13:32] LABS: ALBUMIN 1.3 gm/dl (3.1-4.5); CREATININE 1.7 mg/dL (0.70-1.30); POTASSIUM 4.6 mmol/L (3.5-5.1); TOTAL PROTEIN 5.5 gm/dL (6.4-8.2)
[2019-10-13 13:45] LABS: BURR CELLS FEW; PLATELET SUFFICIENCY NORMAL (NORMAL); POLYCHROMASIA SLIGHT; TOTAL CELLS COUNTED 100 #CELLS
[2019-10-14] VITALS (7 sets, daily range): BP systolic 87–114; BP diastolic 36–61
[2019-10-14 06:24] LABS: HEMATOCRIT 24.6 % (42.0-52.0); MEAN CELL VOLUME 94.6 fl (80.0-94.0); MEAN CORPUSCULAR HGB 28.8 pg (27.0-31.0); MEAN CORPUSCULAR HGB CONC 30.5 g/dl (33.0-37.0); MEAN PLATELET VOLUME 10.6 fl (9.6-12.3); NUCLEATED RED BLOOD CELL 0.2 % (0.0-0.0); PLATELET COUNT AUTOMATED 123 10*3/uL (130-400); RED CELL DISTRI WIDTH 15.9 % (0-14.5); WHITE BLOOD COUNT 9.2 10*3/uL (4.8-10.8)
[2019-10-14 06:39] LABS: ALBUMIN 1.4 gm/dl (3.1-4.5); ALKALINE PHOSPHATASE 345 U/L (45-117); BUN 59 mg/dl (7-24); CHLORIDE 113 mmol/L (98-107); CREATININE 1.48 mg/dL (0.70-1.30); POTASSIUM 4.3 mmol/L (3.5-5.1); SGOT/AST 39 IU/L (3-35); SGPT/ALT 23 U/L (12-78); SODIUM 145 mmol/L (136-145); TOTAL PROTEIN 5.4 gm/dL (6.4-8.2)
[2019-10-14 06:47] LABS: TOTAL CELLS COUNTED 100 #CELLS
[2019-10-14 06:48] LABS: PLATELET SUFFICIENCY LOW (NORMAL); POLYCHROMASIA SLIGHT
== END 2019-10-14 13:46 | disposition short-term general hospital (02) | DRG 570 ==
LOC: ED 16:11 → 5E 18:32 → EDHOLD 18:32 → ICCU 18:32 → 5E 19:23 → ICCU 10-10 15:05
PROVIDERS: Emergency Medicine; Internal Medicine Critical Care Medicine; Internal Medicine Nephrology; Surgery; ADMIT Internal Medicine
PROC: 0JB80ZZ Excision of Abdomen Subcutaneous Tissue and Fascia, Open Approach (ICD-10-PCS; principal; 2019-10-10)
PROC: 30233N1 Transfusion of Nonautologous Red Blood Cells into Peripheral Vein, Percutaneous Approach (ICD-10-PCS; principal; 2019-10-10)
PROC: 5A09357 Assistance with Respiratory Ventilation, Less than 24 Consecutive Hours, Continuous Positive Airway Pressure (ICD-10-PCS; 2019-10-11)
PROC: 5A09357 Assistance with Respiratory Ventilation, Less than 24 Consecutive Hours, Continuous Positive Airway Pressure (ICD-10-PCS; 2019-10-13)
PROC: 5A09357 Assistance with Respiratory Ventilation, Less than 24 Consecutive Hours, Continuous Positive Airway Pressure (ICD-10-PCS; 2019-10-14)
DX: M79.3 Panniculitis, unspecified (principal); E43 Unspecified severe protein-calorie malnutrition; R65.21 Severe sepsis with septic shock; A41.9 Sepsis, unspecified organism; J96.22 Acute and chronic respiratory failure with hypercapnia; J96.21 Acute and chronic respiratory failure with hypoxia; L03.311 Cellulitis of abdominal wall; N39.0 Urinary tract infection, site not specified; Z68.43 Body mass index [BMI] 50.0-59.9, adult; R18.8 Other ascites; F33.1 Major depressive disorder, recurrent, moderate; I50.42 Chronic combined systolic (congestive) and diastolic (congestive) heart failure; E66.2 Morbid (severe) obesity with alveolar hypoventilation; I13.0 Hypertensive heart and chronic kidney disease with heart failure and stage 1 through stage 4 chronic kidney disease, or unspecified chronic kidney disease; N17.9 Acute kidney failure, unspecified; M47.816 Spondylosis without myelopathy or radiculopathy, lumbar region; G89.29 Other chronic pain; G25.81 Restless legs syndrome; B96.1 Klebsiella pneumoniae [K. pneumoniae] as the cause of diseases classified elsewhere; K21.0 Gastro-esophageal reflux disease with esophagitis; J43.2 Centrilobular emphysema; K59.09 Other constipation; E87.5 Hyperkalemia; N18.3 Chronic kidney disease, stage 3 (moderate); Z66 Do not resuscitate; M1A.9XX0 Chronic gout, unspecified, without tophus (tophi); E11.65 Type 2 diabetes mellitus with hyperglycemia; I87.2 Venous insufficiency (chronic) (peripheral); D64.9 Anemia, unspecified; B96.20 Unspecified Escherichia coli [E. coli] as the cause of diseases classified elsewhere; R58 Hemorrhage, not elsewhere classified; B96.4 Proteus (mirabilis) (morganii) as the cause of diseases classified elsewhere; B95.62 Methicillin resistant Staphylococcus aureus infection as the cause of diseases classified elsewhere; E03.9 Hypothyroidism, unspecified; K74.60 Unspecified cirrhosis of liver; Z79.4 Long term (current) use of insulin; Z98.84 Bariatric surgery status; Z83.3 Family history of diabetes mellitus; Z87.891 Personal history of nicotine dependence; Z82.49 Family history of ischemic heart disease and other diseases of the circulatory system; Z80.6 Family history of leukemia; Z83.49 Family history of other endocrine, nutritional and metabolic diseases; Z83.79 Family history of other diseases of the digestive system; Z03.818 Encounter for observation for suspected exposure to other biological agents ruled out

== ENCOUNTER 2019-11-02 17:23 | Emergency (ER) | payer MEDICARE ==
[~2019-11-02 17:23] MED LIST changes: +OXYGEN NAS
[2019-11-02 20:02] LABS: BASO % 0.7 % (0.0-1.0); EOS # 0.1 10*3/uL (0.0-0.4); EOS % 2.5 % (1.0-4.0); LYMPH # 0.7 10*3/uL (1.3-4.4); LYMPH % 16.8 % (27.0-41.0); MEAN CELL VOLUME 96.1 fl (80.0-94.0); MEAN CORPUSCULAR HGB 28.8 pg (27.0-31.0); MEAN PLATELET VOLUME 10.5 fl (9.6-12.3); MONO # 0.4 10*3/uL (0.1-1.0); MONO % 9.5 % (3.0-9.0); NEUT % 69.1 % (47.0-73.0); PLATELET COUNT AUTOMATED 150 10*3/uL (130-400); RED BLOOD COUNT 3.33 10*6/uL (4.50-5.90); RED CELL DISTRI WIDTH 18.1 % (0-14.5); WHITE BLOOD COUNT 4.4 10*3/uL (4.8-10.8)
[2019-11-02 20:17] LABS: ALKALINE PHOSPHATASE 408 U/L (45-117); BUN 37 mg/dl (7-24); CHLORIDE 115 mmol/L (98-107); CREATININE 1.16 mg/dL (0.70-1.30); POTASSIUM 3.8 mmol/L (3.5-5.1); SGOT/AST 69 IU/L (3-35); SGPT/ALT 83 U/L (12-78); SODIUM 143 mmol/L (136-145); TOTAL PROTEIN 6.2 gm/dL (6.4-8.2)
== END 2019-11-03 13:10 | disposition home or self-care (01) ==
LOC: ED 17:23
PROVIDERS: Physician Assistant
DX: S31.109A Unspecified open wound of abdominal wall, unspecified quadrant without penetration into peritoneal cavity, initial encounter (principal); J44.9 Chronic obstructive pulmonary disease, unspecified; E11.9 Type 2 diabetes mellitus without complications; E03.9 Hypothyroidism, unspecified; E78.5 Hyperlipidemia, unspecified; I11.0 Hypertensive heart disease with heart failure; I50.9 Heart failure, unspecified; M10.9 Gout, unspecified; Z87.891 Personal history of nicotine dependence; Z79.899 Other long term (current) drug therapy; Z79.4 Long term (current) use of insulin; Z98.84 Bariatric surgery status; X58.XXXA Exposure to other specified factors, initial encounter; Y93.89 Activity, other specified; Y92.89 Other specified places as the place of occurrence of the external cause; Y99.8 Other external cause status

== ENCOUNTER 2019-11-25 17:29 | Observation (INO) | payer MEDICARE ==
[~2019-11-25] VITALS: Ht 182.8 cm; Wt 161.0 kg
[2019-11-25 17:57] VITALS: BP 121/63
[2019-11-25 18:29] LABS: HEMATOCRIT 31.6 % (42.0-52.0); MEAN CELL VOLUME 94.3 fl (80.0-94.0); MEAN CORPUSCULAR HGB 28.1 pg (27.0-31.0); MEAN CORPUSCULAR HGB CONC 29.7 g/dl (33.0-37.0); MEAN PLATELET VOLUME 10.5 fl (9.6-12.3); PLATELET COUNT AUTOMATED 145 10*3/uL (130-400); RED BLOOD COUNT 3.35 10*6/uL (4.50-5.90); RED CELL DISTRI WIDTH 17.2 % (0-14.5); WHITE BLOOD COUNT 5.4 10*3/uL (4.8-10.8)
--- NOTE | 2019-11-25 18:30 | NUR ---
PATIENT WOUNDS DOCUMENTED. PATIENT DENIES ANY OTHER WOUNDS.
[2019-11-25 18:37] LABS: ACT PARTIAL THROMBO TIME 24.2 SECONDS (20.0-32.1)
[2019-11-25 18:42] LABS: ALBUMIN 1.9 gm/dl (3.1-4.5); ALKALINE PHOSPHATASE 355 U/L (45-117); BUN 47 mg/dl (7-24); CHLORIDE 116 mmol/L (98-107); LIPASE 168 U/L (73-393); POTASSIUM 3.7 mmol/L (3.5-5.1); SGOT/AST 78 IU/L (3-35); SGPT/ALT 87 U/L (12-78); SODIUM 142 mmol/L (136-145); TOTAL PROTEIN 6.6 gm/dL (6.4-8.2)
--- NOTE | 2019-11-25 18:47 | NUR ---
LACTIC ACID 2.2 MANAGER BEHAVIORAL MADELINE NOTIFIED
[2019-11-25 18:54] LABS: TOTAL CELLS COUNTED 100 #CELLS
[2019-11-25 18:55] LABS: PLATELET SUFFICIENCY NORMAL (NORMAL)
[2019-11-25 21:40] VITALS: BP 117/72
--- NOTE | 2019-11-25 22:00 | NUR ---
PATIENT IN BED AWAKE AND ALERT. NO ACUTE DISTRESS NOTED. RN WILL CONT TO MONITOR
[2019-11-25 22:49] VITALS: BP 120/62
--- NOTE | 2019-11-26 00:02 | NUR ---
A 49, admitted to 4E, under the services of Dr. JAMAAL BURNETT,MIGUELANGEL Dennis with a diagnosis of POST OP BLEEDING, OPEN ABDOMNIAL WALL WOUND . Chief complaint is ABD BLEEDING . Patient arrived via bed from ER. Monitor applied. Initial assessment completed. Vital signs taken and recorded. DR. JAMAAL BURNETT,MIGUELANGEL Dennis notified of admission to the unit. Orders received. See assessment for past medical history, medications and allergies. Patient and/or family oriented to unit. [facility] visitation policy reviewed. Clothing/patient valuable form completed. OZ MANLEY
--- NOTE | 2019-11-26 00:30 | NUR ---
DR HINTON MADE AWARE OF ADMISSION, MEDICATIONS REVIEWED.
--- NOTE | 2019-11-26 07:15 | NUR ---
PATIENT RESTING IN BED. VOICES NO CONCERNS. DRESSING DRY AND INTACT TO WOUND ON STOMACH FROM SURGERY THAT HAD HERE WITH IN SEPTEMBER. VSS. RESPS EASY AND REGULAR. ASSESSMENT COMPLETE. CALL LIGHT IN REACH.
--- NOTE | 2019-11-26 07:56 | NUR ---
24 HR chart check completed.
[2019-11-26 08:00] VITALS: BP 122/69
--- NOTE | 2019-11-26 09:00 | NUR ---
FAMILY UPDATED ON PATIENT.
--- NOTE | 2019-11-26 09:00 | NUR ---
WOUND CARE NURSES WERE IN AT THIS TIME AND CHANGED PATIENTS DRESSINGS.
--- NOTE | 2019-11-26 09:00 | NUR ---
CM in to see patient. Wound care nurse currently in room. Will follow up a later time.
--- NOTE | 2019-11-26 09:41 | NUR ---
MEDICATED WITH PRN PERCOCET FOR CO CHRONIC LOWER BACK PAIN RATED AN 8/10. WILL ASSESS EFFECTIVENESS.
--- NOTE | 2019-11-26 09:55 | NUR ---
Whip Sawyer in to talk to patient. Patient states lives at home alone with his family checking on him and helping around his house. There is 1 step in the home. Physician: Dr. Alf English Pharmacy: [facility] Home health services: currently has [facility] and plans to resume those services on discharge Patient's level of ADLs: MODERATE ASSIST Patient has working utilities: yes DME: walker, wheelchair, BSC, lift chair, O2 @ 3L c-pap at , nebulizer, O2 supplier [facility] Follow-up physician's appointment after d/c: he prefers to make his own follow up appt after discharge Does patient want to access PORTAL?: no Discharge plan discussed with patient. He lives at home alone with his family checking in on him and helping him around the house. He is independent in his ADLs and can ambulate with a walker or uses his wheelchair. Discussed short term SNF and he is not agreeable due to he is out of SNF days. Discussed home health care services and he currently has [facility] and would like to resume those services upon discharge. He states his mother and sister change his abdominal dressing every other day and home health changes the dressing on the other days. He is trying to get the home health nurses to come daily and change the dressing and has talked to Dr. English's office about reaching out to [facility] through his insurance. He states his insurance will not pay for nurses to come out daily and change his dressings. When medically stable he will be discharged to home with the resumption of his [facility]. He states his sister will provide transportation on discharge. REMA JONAS
--- NOTE | 2019-11-26 10:20 | NUR ---
ADRIÁN JOHANSEN IN TO SEE PATIENT.
--- NOTE | 2019-11-26 10:41 | NUR ---
PERCOCET EFFECTIVE PER PATIENT.
--- NOTE | 2019-11-26 11:58 | NUR ---
DRESSING REINFORCED TO ABDOMINAL WOUND. DRESSING CONSTANTLY COMES OFF.
[2019-11-26 12:00] VITALS: BP 110/53
[2019-11-26 16:00] VITALS: BP 112/55
--- NOTE | 2019-11-26 16:57 | NUR ---
MEDICATED WITH PRN NORCO FOR CO LOWER BACK PAIN RATED AN 8/10. WILL ASSESS EFFECTIVENESS.
--- NOTE | 2019-11-26 17:24 | NUR ---
DRESSING TO ABDOMEN CHANGED AT THIS TIME D/T IT COMING OFF. FAMILY CALLED AND UPDATED ON POC.
--- NOTE | 2019-11-26 17:57 | NUR ---
NORCO EFFECTIVE PER PATIENT.
[2019-11-26 20:00] VITALS: BP 124/66
[2019-11-27] VITALS: BP 111/58
[2019-11-27 08:00] VITALS: BP 100/52
[2019-11-27 08:16] LABS: BASO % 0.4 % (0.0-1.0); EOS # 0.1 10*3/uL (0.0-0.4); EOS % 2.2 % (1.0-4.0); HEMATOCRIT 32.9 % (42.0-52.0); LYMPH # 0.7 10*3/uL (1.3-4.4); LYMPH % 14.5 % (27.0-41.0); MEAN CORPUSCULAR HGB 27.7 pg (27.0-31.0); MEAN CORPUSCULAR HGB CONC 29.5 g/dl (33.0-37.0); MEAN PLATELET VOLUME 10.1 fl (9.6-12.3); MONO # 0.4 10*3/uL (0.1-1.0); MONO % 7.6 % (3.0-9.0); NEUT # 3.4 10*3/uL (2.3-7.9); NEUT % 72.5 % (47.0-73.0); PLATELET COUNT AUTOMATED 139 10*3/uL (130-400); RED CELL DISTRI WIDTH 17.2 % (0-14.5); WHITE BLOOD COUNT 4.6 10*3/uL (4.8-10.8)
[2019-11-27 08:23] LABS: ALKALINE PHOSPHATASE 317 U/L (45-117); CHLORIDE 112 mmol/L (98-107); CREATININE 1.04 mg/dL (0.70-1.30); SGOT/AST 66 IU/L (3-35); SGPT/ALT 76 U/L (12-78); SODIUM 144 mmol/L (136-145); TOTAL PROTEIN 6.9 gm/dL (6.4-8.2)
[2019-11-27 08:36] LABS: BUN 37 mg/dl (7-24)
--- NOTE | 2019-11-27 09:00 | NUR ---
CM in to see patient. No new needs or request at this time. When medically stable he will be discharged to home with the resumption of his [facility].
--- NOTE | 2019-11-27 09:56 | NUR ---
PERCOSET 5/325 MG GIVEN X2 TABS GIVEN FOR C/O ABDOMINAL PAIN,11/04.
[2019-11-27 12:00] VITALS: BP 108/49
--- NOTE | 2019-11-27 14:00 | NUR ---
DRESSING CHANGE COMPLETED PER PHYSICIAN ORDER TO ABDOMEN. PT TOLERATED WELL. MODERATE SEROUS DRAINAGE NOTED TO LOWER ABDOMEN. WOUND BED PINK, NO BLEEDING NOTED.UMBILICUS DRESSING CHANGED AT THIS TIME AND BROWN SEGOVIA DISCHARGE NOTED. WOUND CHANGE PER PHYSICIAN ORDER. PT TOLERATED WELL. PERICARE AND LINEN CHANGE COMPLETED. PT VOICES NO OTHER NEEDS AT THIS TIME.CALL LIGHT IN REACH.
[2019-11-27 16:00] VITALS: BP 127/72
--- NOTE | 2019-11-27 16:04 | NUR ---
PERCOSET 5/325 MG X2 TABS GIVEN PER MAR FOR C/O ABDOMINAL PAIN AT WOUND SITE,11/04.
--- NOTE | 2019-11-27 18:03 | NUR ---
Patient resting quietly with no c/o discomfort. Respirations easy and regular. Vital signs stable. No overt distress. MAURI ROSEN
--- NOTE | 2019-11-27 19:10 | NUR ---
24 hr chart check complete.
[2019-11-27 20:00] VITALS: BP 130/68
--- NOTE | 2019-11-27 20:00 | NUR ---
PT IS SITTING UP IN BED AT THIS TIME WATCHING TV. HE STATES HE IS FEELING OKAY. NO C/O VOICED. RESPS ARE EASY AND NONLABORED. BED IS LOW, CALL LIGHT WITHIN REACH. WILL CONTINUE TO MONITOR.
--- NOTE | 2019-11-27 21:42 | NUR ---
PT MEDICATED WITH PRN PERCOCET FOR C/O BACK PAIN RATED AN 8/10. WILL MONITOR FOR EFFECTIVENESS.
--- NOTE | 2019-11-27 22:30 | NUR ---
PT ASLEEP IN BED AT THIS TIME. NO S/S OF DISTRESS. PRN PERCOCET APPEARS EFFECTIVE.
[2019-11-28] VITALS: BP 103/61
[2019-11-28 08:00] VITALS: BP 120/65
[2019-11-28 08:27] LABS: BASO % 0.5 % (0.0-1.0); EOS # 0.1 10*3/uL (0.0-0.4); EOS % 2.2 % (1.0-4.0); HEMATOCRIT 32.6 % (42.0-52.0); LYMPH # 0.9 10*3/uL (1.3-4.4); LYMPH % 15.9 % (27.0-41.0); MEAN CELL VOLUME 93.1 fl (80.0-94.0); MEAN CORPUSCULAR HGB 27.7 pg (27.0-31.0); MEAN CORPUSCULAR HGB CONC 29.8 g/dl (33.0-37.0); MEAN PLATELET VOLUME 9.9 fl (9.6-12.3); MONO # 0.4 10*3/uL (0.1-1.0); MONO % 6.9 % (3.0-9.0); NEUT % 72.5 % (47.0-73.0); PLATELET COUNT AUTOMATED 143 10*3/uL (130-400); RED CELL DISTRI WIDTH 17.1 % (0-14.5); WHITE BLOOD COUNT 5.5 10*3/uL (4.8-10.8)
--- NOTE | 2019-11-28 09:04 | NUR ---
MEDICATED PT PER PRN ORDER WITH PERCOCET FOR C/O LOWER BACK PAIN THAT RATES 8/10 ON PAIN SCALE.
--- NOTE | 2019-11-28 09:48 | NUR ---
Discussed discharge planning with Dr. English. Patient's Hgb is stable at 9.7. When medically stable he will be discharged to home with resumption of his [facility]. Plan is for patient to be discharged today.
--- NOTE | 2019-11-28 09:51 | NUR ---
DR HINTON IN TO SEE PT. ORDERED FOR DISCHARGE TODAY. PT STATES RELIEF OF PAIN WITH EARLIER PERCOCET.
--- NOTE | 2019-11-28 11:21 | NUR ---
COMMUNITY ORGANIZER SPOKE WITH THE PATIENT. PATIENT STATED HE LIVES ALONE WITH HIS MOTHER AND SISTER CHECKING IN ON HIM. PATIENT STATED THAT HE DOES RECEIVE SSDI IN THE AMOUNT OF $985.00/MONTHLY. PATIENT STATED THAT HIS FOOD STAMPS WERE DROPPED DOWN TO $16.00 A YEAR AGO. WHEN ASKED HOW THE PATIENT HAS BEEN OBTAINING FOOD. HE STATED HE HAS BEEN IN AND OUT OF HOSPITALS AND SNFS. PATIENT STATED HIS SISTER WORKED FOR A FOOD PANTRY AND HAS BROUGHT STUFF HOME FOR HIM TIME TO TIME. PATIENT STATED HIS MOTHER DOES THE GROCERY SHOPPING FOR HIM. COMMUNITY ORGANIZER PROVIDED THE PATIENT WITH A LIST OF FOOD PANTRIES. COMMUNITY ORGANIZER EXPLAINED TO CALL THE FOOD PANTRIES AHEAD OF TIME TO CHECK FOR NEW COVID POLICY RESTRICTIONS AND TO SEE IF THEY WOULD ACCOMMODATE HIS NEEDS. PATIENT WAS RECEPTIVE TO THIS. BED AND BREAKFAST OPERATOR IS AWARE.
--- NOTE | 2019-11-28 11:45 | NUR ---
Faxed discharge instructions and summary to [facility]
[2019-11-28 12:00] VITALS: BP 111/62
--- NOTE | 2019-11-28 18:52 | NUR ---
PT REFUSED DISCHARGE PICTURES WHEN WE WENT IN TO TAKE THEM. DRESSINGS CHANGGED. DISCHARGE ORDERS GIVEN TO PT. PT VERBALIZED UNDERSTANDING.
--- NOTE | 2019-11-28 18:58 | NUR ---
PT DISCHARGED TO HOME VIA .
== END 2019-11-28 19:05 | disposition home health service (06) ==
LOC: ED 17:29 → 4E 21:24 → EDHOLD 21:24 → 4E 22:25
PROVIDERS: Nurse Practitioner Family; ADMIT Internal Medicine; ATTEND Internal Medicine
DX: L76.22 Postprocedural hemorrhage of skin and subcutaneous tissue following other procedure (principal); R62.51 Failure to thrive (child); M10.9 Gout, unspecified; E03.9 Hypothyroidism, unspecified; E11.9 Type 2 diabetes mellitus without complications; F32.9 Major depressive disorder, single episode, unspecified; G25.81 Restless legs syndrome; M47.816 Spondylosis without myelopathy or radiculopathy, lumbar region; I11.0 Hypertensive heart disease with heart failure; I50.23 Acute on chronic systolic (congestive) heart failure

== ENCOUNTER 2019-12-17 12:36 | Emergency (ER) | payer MEDICARE ==
[~2019-12-17] VITALS: Ht 180.3 cm; Wt 162.8 kg
[2019-12-17 13:42] LABS: BASO % 0.4 % (0.0-1.0); EOS # 0.1 10*3/uL (0.0-0.4); EOS % 2.3 % (1.0-4.0); HEMATOCRIT 31.6 % (42.0-52.0); LYMPH # 0.7 10*3/uL (1.3-4.4); LYMPH % 13.1 % (27.0-41.0); MEAN CELL VOLUME 93.8 fl (80.0-94.0); MEAN CORPUSCULAR HGB 27.6 pg (27.0-31.0); MEAN CORPUSCULAR HGB CONC 29.4 g/dl (33.0-37.0); MEAN PLATELET VOLUME 10.2 fl (9.6-12.3); MONO # 0.4 10*3/uL (0.1-1.0); MONO % 7.9 % (3.0-9.0); NEUT # 3.8 10*3/uL (2.3-7.9); NEUT % 73.6 % (47.0-73.0); PLATELET COUNT AUTOMATED 115 10*3/uL (130-400); RED BLOOD COUNT 3.37 10*6/uL (4.50-5.90); RED CELL DISTRI WIDTH 18.3 % (0-14.5); WHITE BLOOD COUNT 5.2 10*3/uL (4.8-10.8)
[2019-12-17 13:56] LABS: ALBUMIN 2.1 gm/dl (3.1-4.5); ALKALINE PHOSPHATASE 357 U/L (45-117); BUN 35 mg/dl (7-24); CHLORIDE 114 mmol/L (98-107); CREATININE 1.02 mg/dL (0.70-1.30); SGOT/AST 77 IU/L (3-35); SGPT/ALT 88 U/L (12-78); SODIUM 144 mmol/L (136-145); TOTAL PROTEIN 6.5 gm/dL (6.4-8.2)
== END 2019-12-17 16:07 | disposition home or self-care (01) ==
LOC: ED 12:36
PROVIDERS: Nurse Practitioner Family
DX: Z48.00 Encounter for change or removal of nonsurgical wound dressing (principal); E11.9 Type 2 diabetes mellitus without complications; I11.0 Hypertensive heart disease with heart failure; I50.9 Heart failure, unspecified; M10.9 Gout, unspecified; Z79.899 Other long term (current) drug therapy; Z79.2 Long term (current) use of antibiotics; Z87.891 Personal history of nicotine dependence

== ENCOUNTER 2020-01-11 00:46 | Inpatient (IN) | payer MEDICARE, SELFPAY ==
[~2020-01-11] VITALS: Ht 175.3 cm; Wt 156.2 kg
[2020-01-11] VITALS (85 sets, daily range): BP systolic 72–153; BP diastolic 37–86
--- NOTE | 2020-01-11 01:06 | NUR ---
Pt states he refuses wound photos at this time.Pt states he just saw wound care on Tuesday and they should have enough photos at this time.
[2020-01-11 01:17] LABS: HEMATOCRIT 33.8 % (42.0-52.0); MEAN CELL VOLUME 90.9 fl (80.0-94.0); MEAN CORPUSCULAR HGB 27.7 pg (27.0-31.0); MEAN CORPUSCULAR HGB CONC 30.5 g/dl (33.0-37.0); MEAN PLATELET VOLUME 10.3 fl (9.6-12.3); PLATELET COUNT AUTOMATED 117 10*3/uL (130-400); RED BLOOD COUNT 3.72 10*6/uL (4.50-5.90); RED CELL DISTRI WIDTH 17.2 % (0-14.5); WHITE BLOOD COUNT 10.8 10*3/uL (4.8-10.8)
[2020-01-11 01:35] LABS: ALBUMIN 2.2 gm/dl (3.1-4.5); BUN 52 mg/dl (7-24); CHLORIDE 112 mmol/L (98-107); CREATININE 1.32 mg/dL (0.70-1.30); POTASSIUM 2.9 mmol/L (3.5-5.1); SGOT/AST 76 IU/L (3-35); SGPT/ALT 70 U/L (12-78); SODIUM 146 mmol/L (136-145); TOTAL PROTEIN 6.7 gm/dL (6.4-8.2)
[2020-01-11 01:37] LABS: ALKALINE PHOSPHATASE 405 U/L (45-117)
[2020-01-11 01:38] LABS: TROPONIN I < 0.015 ng/ml (<0.045)
[2020-01-11 01:47] LABS: PLATELET SUFFICIENCY LOW (NORMAL); TOTAL CELLS COUNTED 100 #CELLS
--- NOTE | 2020-01-11 02:00 | NUR ---
Pt states he does not want wound photos at this time.Attempted to emmanuel rest of dressing off at this time to see more closely of abdominal wound and pt started to breath heavy while laying flat.Tegaderm noted on dressing around abdomen with and pads and hypofix dressing.Scrotum wound noted on left side amd was yellow at this time and open.Left lower leg wound noted with dressing in place.Small quater size area with scant yellow drainage noted.Pt also has blisters on right lower leg.Whole lower abdomen is red and skin tear noted on left lower abdomen at this time.Pt also turned and buttock red blanchable.
--- NOTE | 2020-01-11 02:05 | NUR ---
Pt does not want to take full dressing down at this time and refused.
--- NOTE | 2020-01-11 02:54 | NUR ---
Pt currently sleeping at this time.
--- NOTE | 2020-01-11 03:15 | NUR ---
Pt woke up to take upstairs to room at this time.Pt is drowsy but is alert and orientated x3.Pt placed on monitor and 2 liters of oxygen at this and then transported to room.
--- NOTE | 2020-01-11 03:30 | NUR ---
A 49, admitted to 5E, under the services of Dr. JAMAAL BURNETT,MIGUELANGEL Dennis with a diagnosis of CHF, ANJAAN, HYPOKALEMIA. Chief complaint is SHORTNESS OF BREATH. Patient arrived via bed from ER. Monitor applied. Initial assessment completed. Vital signs taken and recorded. MIGUELANGEL LORD MD notified of admission to the unit. Orders received. See assessment for past medical history, medications and allergies. Patient and/or family oriented to unit. [facility] visitation policy reviewed. Clothing/patient valuable form completed. MELANIE VERAS
--- NOTE | 2020-01-11 03:30 | NUR ---
PATIENT BROUGHT UP TO 5TH FLOOR AT THIS TIME. PATIENT VERY LETHARGIC AND DIFFICULT TO AROUSE. PATIENT ALERT AND ORIENTED TO PERSON AND PLACE, BUT NOT TIME. PATIENT UNSURE OF DATE. PATIENTS VITALS TAKEN AND BLOOD PRESSURE MANUALLY 72/44 WITH A RECTAL TEMP OF 101.6. PATIENTS OXYGEN WAS NOT HOOKED UP AND INITIALLY HE WAS 83% ON ROOM AIR, PATIENT TURNED TO 6L TO INCREASE PULSE OX TO 99%. PATIENT WOULD WAKE UP, BUT IMMEDIATELY FALLS BACK ASLEEP. PATIENT NOTED WITH REDDENED LOWER ABDOMEN AND +3 PITTING EDEMA TO BLE.
--- NOTE | 2020-01-11 03:45 | NUR ---
SPOKE WITH DR. HINTON AT THIS TIME. NOTIFIED HIM THAT PATIENT IS EXTREMELY LETHARGIC AND DIFFICULT TO KEEP AWAKE AND THAT MANUALLY HIS BLOOD PRESSURE IS 72/44 AND THAT HIS RECTAL TEMPERATURE WAS 101.6. NOTIFIED HIM PATIENT WANTS TO REMAIN A FULL CODE. DR. HINTON STATED TO [facility]
--- NOTE | 2020-01-11 04:00 | NUR ---
A 49, admitted to ICCU, under the services of Dr. JAMAAL BURNETT,MIGUELANGEL Dennis with a diagnosis of HYPOTENSION ANJANA. Chief complaint is SHORTNESS OF BREATH. Patient arrived via bed from ER. Monitor applied. Initial assessment completed. Vital signs taken and recorded. DR. JAMAAL BURNETT,MIGUELANGEL Dennis notified of admission to the unit. Orders received. See assessment for past medical history, medications and allergies. Patient and/or family oriented to unit. [facility] visitation policy reviewed. Clothing/patient valuable form completed. LOIS LARA
[2020-01-11] MEDS ORDERED: POTASSIUM CHLO20 MEQ PO (04:35)
[2020-01-11] MEDS ORDERED: LANTUS SOL100 UNIT/1 SQ (04:36)
--- NOTE | 2020-01-11 06:00 | NUR ---
CONSULT CALLED TO DR. SARABIA ANSWERING SERVICE.
--- NOTE | 2020-01-11 06:05 | NUR ---
CONSULT TO [facility].
--- NOTE | 2020-01-11 07:06 | NUR ---
Patient given tylenol for temp of 101.6. Will monitor and reassess.
--- NOTE | 2020-01-11 09:03 | NUR ---
DR BOWMAN CALLED WITH CONSULT INFORMATION, ORDERS RECIEVED
--- NOTE | 2020-01-11 09:26 | NUR ---
DR CHAUHAN-WARP HANGER IN TO SEE PATIENT
--- NOTE | 2020-01-11 09:55 | NUR ---
PHYSICAL THERAPY Screen received pt admitted with hypokalemia and CHF please consult PT if pt has decline in functional status below baselin thank you Sarah Haider PT
--- NOTE | 2020-01-11 10:46 | NUR ---
CONSULT CALLED TO [facility] AT THIS TIME, STATE THEY WILL SEE PATIENT IN APPROXIMATELY 1 HOUR.
--- NOTE | 2020-01-11 11:02 | NUR ---
CONSULT CALLED TO DR SAMPSON AT THIS TIME, STATES HE WILL SEE PATIENT LATER ON TODAY
--- NOTE | 2020-01-11 11:15 | NUR ---
DR HINTON IN TO SEE PATIENT
--- NOTE | 2020-01-11 11:30 | NUR ---
DR SAMPSON IN TO SEE PATIENTY
--- NOTE | 2020-01-11 11:37 | NUR ---
URINE SPECIMENS REQUESTED BY DR BOWMAN SENT AT THIS TIME.
--- NOTE | 2020-01-11 12:00 | NUR ---
ULTRASOUND IN TO OBTAIN THE VENOUS AND ARTERIAL ULTRASOUND PER DRS ORDERS
[2020-01-11 12:08] LABS: BILIRUBIN Negative (Negative); BLOOD Negative (Negative); CLARITY Clear (Clear); COLOR Yellow (Yellow); GLUCOSE Negative (Negative); KETONE Negative (Negative); LEUKO ESTERASE Negative (Negative); NITRITE Negative (Negative); SPECIFIC GRAVITY 1.015 (1.001-1.030); UROBILINOGEN 0.2 E.U./dl (0.0-1.0)
[2020-01-11 12:28] LABS: URINE CREATININE RANDOM 79.2 mg/dL
--- NOTE | 2020-01-11 13:19 | NUR ---
WOUND CULTURE OBTAINED AND SENT PER DRS ORDERS.
[2020-01-11 13:40] LABS: BACTERIA 1+; CALCIUM OXALATE CRYSTALS TRACE
--- NOTE | 2020-01-11 15:51 | NUR ---
ABDOMINAL DRESSINGS CHANGED DUE TO SOILING AT THIS TIME. PATIENT TOLERATED WELL.
--- NOTE | 2020-01-11 17:14 | NUR ---
DINNER ORDERED FOR PATIENT PER HIS REQUEST.
--- NOTE | 2020-01-11 17:33 | NUR ---
SPOKE WITH PATIENTS SISTER AND UPDATED HER OF PLAN OF CARE
--- NOTE | 2020-01-11 18:05 | NUR ---
PATIENT OFF LEVOPHED AT THIS TIME. BLOOD PRESSURE STABLE WITH MAP GREATER THAN OR EQUAL TO 65. RN WILL CONTINUE TO MONITOR
--- NOTE | 2020-01-11 19:08 | NUR ---
TYLENOL GIVEN FOR ELEVATED TEMPERATURE
--- NOTE | 2020-01-11 20:00 | NUR ---
PT SITTING UP IN BED TALKING ON PHONE AND EATING SNACK, A&OC3, PLEASANT AND COOPERATIVE WITH STAFF. RESP NONLABORED. NO ACUTE DISTRESS NOTED. NO COMPLAINTS VOICED. HEPLOCKS PATENT. NO S/S OF HYPO/HYPERGLYCEMIA NOTED. DRESSINGS TO WOUNDS DRY AND INTACT.
[2020-01-12] VITALS (91 sets, daily range): BP systolic 86–145; BP diastolic 37–86
[2020-01-12 06:56] LABS: HEMATOCRIT 32.4 % (42.0-52.0); MEAN CELL VOLUME 92.6 fl (80.0-94.0); MEAN CORPUSCULAR HGB 26.6 pg (27.0-31.0); MEAN CORPUSCULAR HGB CONC 28.7 g/dl (33.0-37.0); MEAN PLATELET VOLUME 10.8 fl (9.6-12.3); PLATELET COUNT AUTOMATED 108 10*3/uL (130-400); RED CELL DISTRI WIDTH 17.4 % (0-14.5); WHITE BLOOD COUNT 6.8 10*3/uL (4.8-10.8)
[2020-01-12 07:17] LABS: ALKALINE PHOSPHATASE 291 U/L (45-117); BUN 49 mg/dl (7-24); CHLORIDE 111 mmol/L (98-107); CREATININE 1.27 mg/dL (0.70-1.30); POTASSIUM 3.4 mmol/L (3.5-5.1); SGOT/AST 56 IU/L (3-35); SGPT/ALT 49 U/L (12-78); SODIUM 142 mmol/L (136-145); TOTAL PROTEIN 6.6 gm/dL (6.4-8.2)
[2020-01-12 07:46] LABS: BURR CELLS FEW; OVALOCYTES FEW; PLATELET SUFFICIENCY LOW (NORMAL); TOTAL CELLS COUNTED 100 #CELLS
--- NOTE | 2020-01-12 08:20 | NUR ---
Awake and alert. Dr. Paris in to evaulate. Orders recieved. Wound c/s was obtained and sent. Dr. Murrell was message was left for call back re: new consult. Breakfast was ordered.
--- NOTE | 2020-01-12 08:36 | NUR ---
Dr. Murrell was notified of consult.
--- NOTE | 2020-01-12 09:00 | NUR ---
Dr. Arrington in to [facility]. Orders were recieved. Levophed was resumed at 2 mcg/min. IV's x 2 placed to RA.
--- NOTE | 2020-01-12 09:42 | NUR ---
Service Engineer in to talk to patient. Patient states lives at home with family. There are no steps in the home. Physician: joann [facility]acy: [facility] Home health services: [facility] Patient's level of ADLs: MODERATE ASSIST Patient has working utilities: all working DME: walker, wheelchair, bedside commode lift chair, cpap with o2 from [employer], nebulizer Follow-up physician's appointment after d/c: patient will make own follow up appointment when discharged Does patient want to access PORTAL?: no Discharge plan patient lives at home, has some dificulty caring for self at home, discharge plan at this time is undecided. case management will follow for discharge needs. ELIANE CURTIS
--- NOTE | 2020-01-12 12:46 | NUR ---
Dr. Murrell in to [facility].
--- NOTE | 2020-01-12 13:18 | NUR ---
PT OFF BIPAP FOR LUNCH, ABG DRAWN WITH BIPAP ON.
[2020-01-12 13:23] LABS: ABG BASE EXCESS -0.4 mmol/L (-2.0-2.0); ARTERIAL BLOOD GAS PH 7.404 (7.35-7.45)
--- NOTE | 2020-01-12 14:38 | NUR ---
Took lunch well. Recieved Bi-pap from home. RT aware.
--- NOTE | 2020-01-12 18:12 | NUR ---
1745 Bi-pap off for supper. Requested hoagie that was sent in by family. given w/ dlaine. Dr. Stokes was in and asked that britni be held this PM..
--- NOTE | 2020-01-12 20:00 | NUR ---
PT SITTING UP IN BED TALKING ON PHONE AND EATING A SANDWICH, A&OX3, PLEASANT AND COOPERATIVE WITH STAFF. RESP NONLABORED. NO ACUTE DISTRESS NOTED. NO COMPLAINTS VOICED. IV'S PATENT AND IVF'S INFUSING ORDERED WITHOUT DIFFICULTY. NO S/S OF HYPO/HYPERGLYCEMIA NOTED.
[2020-01-13] VITALS (29 sets, daily range): BP systolic 89–141; BP diastolic 40–89
--- NOTE | 2020-01-13 03:30 | NUR ---
MEDICATED WITH TYLENOL PER PRN ORDER FOR TEMP 101.8(R).
--- NOTE | 2020-01-13 06:00 | NUR ---
DR MARTINEZ IN AND ORDER TO DISCONTINUE LEVOPHED. USE THERAHONEY TO LEFT LEG WOUND. MAKE PT IMC.
--- NOTE | 2020-01-13 08:48 | NUR ---
C/O inability to void. Attempted on bedpan and w/ urinal assist. Dr. Paris was notified and Orders recieved. Straight cathed for 500cc jitendra urine. Assisted bed amaro for small mushy BM. lacy care given. Dressing changed to LLE and Left abdomen tape tear. Breakfast was ordered.
--- NOTE | 2020-01-13 10:33 | NUR ---
Breakfast taken well . Dr. Arrington in, no new orders.
--- NOTE | 2020-01-13 10:59 | NUR ---
VT 26.5 , not notified. Pharmacy to dose.
--- NOTE | 2020-01-13 12:31 | NUR ---
Bi Pap on slept through lunch.
--- NOTE | 2020-01-13 14:16 | NUR ---
Taking a late lunch.
--- NOTE | 2020-01-13 20:09 | NUR ---
1930 RESTING IN BED WITH HOB ELEVATED. SIDE RIAL UP X'S 2. HEP LOCK INTACT. PULSE OX 97% ON RA. WANTS BIPAP ON AT HS. SEE WOUND SCREEN FOR ALL WOUNDS AND DRSGS. NO DISTRESS NOTED. SL TEMP OF 99.2 ORAL NOTED. NO C/O'S PAIN OR DISCOMFORT VOICED AT PRESENT TIME.
--- NOTE | 2020-01-13 20:30 | NUR ---
Pt placed on BiPap for the night 12/01. FiO2 21%. Alarms on and audible.
--- NOTE | 2020-01-13 22:15 | NUR ---
2129 INCONTINENT OF MODERATE AMOUNT YELLOW MUSHY STOOL. BAHMAN CARE AND LINENS CHANGED. CALAZYME APPLIED. LEFT LEG REMAINS VERY RED IN APPEARANCE AND WARM TO TOUCH.
[2020-01-14] VITALS: BP 107/55
--- NOTE | 2020-01-14 00:17 | NUR ---
HAD LARGE BM OF YELLOW MUSHY STOOL ON BEDPAN. VOIDED IN URINAL WITH ASSIST. NO DISTRESS NOTED.
--- NOTE | 2020-01-14 02:35 | NUR ---
BIPAP INTACT. RESTING IN BED WITH EYES CLOSED. APPEARS TO BE SLEEPING.
--- NOTE | 2020-01-14 04:10 | NUR ---
REMAINS SLEEPING WITHOUT DISTRESS.
--- NOTE | 2020-01-14 06:08 | NUR ---
AWAKE. RESTING IN BED WATCHING TV. NO C/O'S VOICED. CONDITION GUARDED.
[2020-01-14 06:12] LABS: BASO % 0.2 % (0.0-1.0); EOS # 0.1 10*3/uL (0.0-0.4); EOS % 1.5 % (1.0-4.0); HEMATOCRIT 30.7 % (42.0-52.0); LYMPH # 0.4 10*3/uL (1.3-4.4); LYMPH % 10.9 % (27.0-41.0); MEAN CELL VOLUME 92.7 fl (80.0-94.0); MEAN CORPUSCULAR HGB 26.6 pg (27.0-31.0); MEAN CORPUSCULAR HGB CONC 28.7 g/dl (33.0-37.0); MEAN PLATELET VOLUME 10.9 fl (9.6-12.3); MONO # 0.4 10*3/uL (0.1-1.0); MONO % 8.7 % (3.0-9.0); NEUT # 3.2 10*3/uL (2.3-7.9); PLATELET COUNT AUTOMATED 89 10*3/uL (130-400); RED BLOOD COUNT 3.31 10*6/uL (4.50-5.90); RED CELL DISTRI WIDTH 17.4 % (0-14.5)
[2020-01-14 06:15] LABS: ALBUMIN 1.8 gm/dl (3.1-4.5); BUN 48 mg/dl (7-24); CHLORIDE 113 mmol/L (98-107); CREATININE 1.27 mg/dL (0.70-1.30); POTASSIUM 3.8 mmol/L (3.5-5.1); SGOT/AST 41 IU/L (3-35); SGPT/ALT 29 U/L (12-78); SODIUM 143 mmol/L (136-145); TOTAL PROTEIN 6.5 gm/dL (6.4-8.2)
[2020-01-14 06:16] LABS: ALKALINE PHOSPHATASE 274 U/L (45-117)
[2020-01-14 08:00] VITALS: BP 105/60
--- NOTE | 2020-01-14 09:00 | NUR ---
CM in to see patient. No new needs or request at this time. Discussed short term rehab but he doesn't have any SNF days. Discussed home health care services and he currently has [facility] and would like to resume those services upon discharge. When medically stable he will be discharged to home with the resumption of his [facility].
[2020-01-14] MEDS ORDERED: MERREM IV1 GM IV (11:14)
[2020-01-14 12:00] VITALS: BP 99/51
[2020-01-14 16:00] VITALS: BP 116/58
--- NOTE | 2020-01-14 16:00 | NUR ---
LEFT PICC BY OR
--- NOTE | 2020-01-14 17:22 | NUR ---
BACK ON BEDPAN FOR MODERATE AMOUNT OF YELLOW MUSHY BM
--- NOTE | 2020-01-14 18:53 | NUR ---
CHART CHECK COMPLETE.
[2020-01-14 20:00] VITALS: BP 103/61
--- NOTE | 2020-01-14 20:08 | NUR ---
PT WITHOUT COMPLAINTS. HAD LG YELLOW MUSHY STOOL ON BEDPAN AND THEN VOIDED (WITH ASSIST) 450CC URINE IN URINAL.
--- NOTE | 2020-01-14 21:30 | NUR ---
PM SNACK...PT TALKING ON TELEPHONE.
[2020-01-15] VITALS: BP 112/59
--- NOTE | 2020-01-15 06:30 | NUR ---
BS 80. POPSICLE PER PT REQUEST.
--- NOTE | 2020-01-15 07:24 | NUR ---
PATIENT CURRENTLY NOT WEARING BIPAP. PT ON 2 L/M NC SPO2 100& HR 81.
[2020-01-15 08:00] VITALS: BP 110/69
--- NOTE | 2020-01-15 10:30 | NUR ---
CM in to see patient. No new needs or request at this time. Discussed home IV antibiotics and he states either himself, his mother, or his sister will be able to learn how to administer. He currently has [facility] and would like to resume their services upon discharge.
--- NOTE | 2020-01-15 11:02 | NUR ---
Received prescription for Merrem 1 gm IV q8h for [address] Hernandez. Faxed referral to [facility] and [facility]. Awaiting responses.
[2020-01-15 12:00] VITALS: BP 108/58
--- NOTE | 2020-01-15 12:24 | NUR ---
Received call from Jazzmine at [facility] regarding patient being discharged on home IV antibiotics. They are not able to take patient at this time with the 3 doses of antibiotics daily. They feel the family nor the patient are reliable to learn and administer the IVs. They feel he should go to a SNF. She states he calls the nurse at all hours of the day regarding his abdominal dressing. Unfortunately patient does not have any SNF days as he has not been out of the hospital for a period of greater than 60 days consecutively. Possibility of an LTAC. Discussed with Dr. Hernandez. senior program planner following.
--- NOTE | 2020-01-15 13:10 | NUR ---
[facility] home health stating they are unable to teach patient or family how to do home IV ABX so they will not be able to assist with this. Due to patients insurance [employer] complete medicare, no other home health companies are in network including [facility]. Patient requires IV ABX for two weeks and wound care. Patient does not have any custodial days remaining. Referral faxed to [facility]. Waiting on review.
--- NOTE | 2020-01-15 14:56 | NUR ---
CM in to see patient. Discussed him being out of SNF days, home health not thinking it would a good idea for him to go home with home IVs, and the possibility of him going to an LTAC, specifically [facility] in [place]. He's agreeable. Discussed discharge plan with nurse and Dr. English. Dr. Hernandez states the only antibiotic would be the Merrem. Awaiting response from [facility].
--- NOTE | 2020-01-15 15:19 | NUR ---
Patient is not able to go to [facility] due to he is out of inpatient hospital Medicare days. Awaiting [facility] for cost and coverage of home IV antibiotics.
--- NOTE | 2020-01-15 15:20 | NUR ---
TRANSFERRED TO ROOM 529 VIA BED.
[2020-01-15 16:00] VITALS: BP 115/63
[2020-01-15 20:00] VITALS: BP 131/61
--- NOTE | 2020-01-15 20:00 | NUR ---
ASSESSMENT COMPLETE SEE FLOW SHEET. TOOK PO MEDS WITHOUT DIFFICULTY. CALL LIGHT IN REACH.
--- NOTE | 2020-01-15 21:31 | NUR ---
C/O GENERALIZED PAIN. REPOSITIONED WITHOUT EFFECT. ADMINISTERED PRN TYLENOL PER ORDER.
--- NOTE | 2020-01-15 22:00 | NUR ---
NO FURTHER C/O VOICED.
[2020-01-16] VITALS: BP 105/53
[2020-01-16 08:00] VITALS: BP 131/69
--- NOTE | 2020-01-16 08:59 | NUR ---
[facility] stating they are unable to accept this patient as he is out of in patient medicare days. Referral faxed to [facility]. Eugenia, from [facility] stating they are in network and will review referral. Waiting on review/requires precert.
--- NOTE | 2020-01-16 09:00 | NUR ---
CM in to see patient. No new needs or request at this time. Discussed [facility] not able to accept patient. Referral has been made to [facility]. Awaiting response.
--- NOTE | 2020-01-16 10:49 | NUR ---
Nutritional Support Services Note: Appetite is good for meals, he is eating 100% of all meals. NCS diet as ordered with yogurt q meal and 1.5 liter of fluid restriction daily. Ht.5'9 Wt 368# Encouraged healhty eating and increased need for protein to promote healing. All questions were answered. Pt continues to be noncompliant with diet. Will follow. Mónica Pereyra Rdn Ld
--- NOTE | 2020-01-16 10:58 | NUR ---
Received call from Rocio at [employer] [facility] [employer]. Patient is covered at 100% with no co-pay. [facility] is willing to accept patient's home IV antibiotics if patient is to go home. [facility]waiting [facility].
--- NOTE | 2020-01-16 11:11 | NUR ---
MEDICATED WITH PERCOCET FOR COMPLAINTS OF PAIN IN LOWER BACK. RATES PAIN A 8 ON A PAIN SCALE OF 1-10
[2020-01-16 12:00] VITALS: BP 124/65
--- NOTE | 2020-01-16 12:00 | NUR ---
voices that percocet was effective for pain. rates pain 1 6 on a pain scale of 1-10
--- NOTE | 2020-01-16 14:02 | NUR ---
Spoke to Dr. Hernandez regarding IV antibiotics on discharge. Continue Merrem at this time but avycaz or tigecycline could be possibilities on discharge to LTAC. Avycaz would be TID and tigecycline would be daily. [facility]waiting [facility].
--- NOTE | 2020-01-16 14:34 | NUR ---
PHYSICAL THERAPY Physical Therapy evaluation completed on 5th floor with full evaluation to follow. Recommend physical therapy per plan of care and SNF upon discharge. Thank you for this referral. Joey Rush SPT Sarah Haider PT
[2020-01-16 16:05] VITALS: BP 120/57
[2020-01-16 20:00] VITALS: BP 126/60
--- NOTE | 2020-01-16 20:00 | NUR ---
ASSESSMENT COMPLETE. NO C/O VOICED. PLEASANT/COOPERATIVE. TOOK MEDS WITHOUT DIFFICULTY. DRESSINGS INTACT. CALL LIGHT IN REACH.
--- NOTE | 2020-01-16 21:35 | NUR ---
C/O GENERALIZED PAIN. REPOSITIONED WITHOUT EFFECT. ADMINISTERED PRN TYLENOL PER ORDER.
--- NOTE | 2020-01-16 22:00 | NUR ---
NO FURTHER C/O VOICED.
[2020-01-17] VITALS: BP 125/66
--- NOTE | 2020-01-17 01:00 | NUR ---
Pt placed on BiPap 18/10 and FiO2 21%. Alarms on and audible.
[2020-01-17 06:44] LABS: HEMATOCRIT 32.7 % (42.0-52.0); MEAN CELL VOLUME 94.2 fl (80.0-94.0); MEAN CORPUSCULAR HGB 26.8 pg (27.0-31.0); MEAN CORPUSCULAR HGB CONC 28.4 g/dl (33.0-37.0); MEAN PLATELET VOLUME 11.4 fl (9.6-12.3); PLATELET COUNT AUTOMATED 116 10*3/uL (130-400); RED BLOOD COUNT 3.47 10*6/uL (4.50-5.90); WHITE BLOOD COUNT 3.1 10*3/uL (4.8-10.8)
[2020-01-17 07:07] LABS: BASOPHILS 1 % (0-1); PLATELET SUFFICIENCY LOW (NORMAL); POLYCHROMASIA SLIGHT; SCHISTOCYTES FEW; TOTAL CELLS COUNTED 100 #CELLS
--- NOTE | 2020-01-17 08:00 | NUR ---
IN TO ROOM. PATIENT AWAKE, ALERT AND ORIENTED. NO STATED COMPLAINTS AT THIS TIME. DENIES PAIN. RESPIRATIONS ARE EASY AND REGULAR AT REST. NO SOB NOTED. BED IN LOWEST LOCKED POSITION AND CALL LIGHT WITHIN REACH. WILL CONTINUE TO MONITOR.
--- NOTE | 2020-01-17 09:00 | NUR ---
CM in to see patient. No new needs or request at this time. Discussed awaiting [facility] approval. Back up plan is home with [facility]. He is agreeable. cyber ops planner following.
--- NOTE | 2020-01-17 10:00 | NUR ---
PT REQUESTS TO HAVE DR. HINTON COME BACK TO HIS ROOM. PT STATES HE HAS QUESTIONS HE NEEDS TO ASK. DR. HINTON NOTIFIED.
[2020-01-17 10:35] LABS: HEMATOCRIT 31.3 % (42.0-52.0); MEAN CORPUSCULAR HGB CONC 28.8 g/dl (33.0-37.0); MEAN PLATELET VOLUME 10.8 fl (9.6-12.3); PLATELET COUNT AUTOMATED 109 10*3/uL (130-400); RED BLOOD COUNT 3.33 10*6/uL (4.50-5.90); RED CELL DISTRI WIDTH 16.9 % (0-14.5); WHITE BLOOD COUNT 3.9 10*3/uL (4.8-10.8)
[2020-01-17 10:51] LABS: ALBUMIN 2.3 gm/dl (3.1-4.5); ALKALINE PHOSPHATASE 343 U/L (45-117); BUN 35 mg/dl (7-24); CHLORIDE 116 mmol/L (98-107); POTASSIUM 3.6 mmol/L (3.5-5.1); SGOT/AST 37 IU/L (3-35); SGPT/ALT 30 U/L (12-78); SODIUM 147 mmol/L (136-145); TOTAL PROTEIN 6.6 gm/dL (6.4-8.2)
[2020-01-17 10:59] LABS: PLATELET SUFFICIENCY LOW (NORMAL); POLYCHROMASIA SLIGHT; TOTAL CELLS COUNTED 100 #CELLS
[2020-01-17 12:00] VITALS: BP 125/86
--- NOTE | 2020-01-17 12:01 | NUR ---
Patient updated clinicals faxed to Eugenia at [facility] per request. waiting on review.
--- NOTE | 2020-01-17 14:00 | NUR ---
PHYSICAL THERAPY Patient seen this pm 1:1 for therapy visit and was supine in bed upon therapist arrival. Patient identified by name / and was joined by OT assistant refinery operator for observation only this session. Patient reports new onset of L knee pain, 11/04, with origin Superior Patella area, running down Anterior of leg thru patella to Dorsal area of foot upon movement. Patient able to perform supine ankle pumps, SLR x 2, AROM, x 10 reps each prior to transfering supine to sit EOB with CGA x 1. Patient tolerated static EOB sit x 6-7 minutes, SBA, however he was not able to scoot side to side or attempt sit to stand this session secondary to c/o of L knee pain. Patient returned to supine in bed, MIN A with Barrera LAYNE's as patient was able to assist with HOB positioning. Patient remained in bed with call light, tray table and cell phone. Will continue per POC as tolerated, total treatment time 13 minutes. Adolfo Saul, METAL BURNISHER
[2020-01-17 16:00] VITALS: BP 115/81
--- NOTE | 2020-01-17 18:13 | NUR ---
ABDOMINAL DRESSING CHANGED AT THIS TIME.
[2020-01-17 20:00] VITALS: BP 136/70
[2020-01-18] VITALS: BP 126/86
--- NOTE | 2020-01-18 01:40 | NUR ---
PERCOCET GIVEN FOR C/O 11/04 PAIN TO BACK AND LLE
--- NOTE | 2020-01-18 02:40 | NUR ---
PRN PAIN MEDS EFFECTIVE. PATIENT RESTING
--- NOTE | 2020-01-18 03:34 | NUR ---
PT PLACED ON BIPAP.
--- NOTE | 2020-01-18 05:00 | NUR ---
Patient resting quietly with no c/o discomfort. Respirations easy and regular. Vital signs stable. No overt distress. TULIO HOWARD
--- NOTE | 2020-01-18 06:15 | NUR ---
WOUND CARE COMPLETE WITH CRYSTAL ASSISTANT PRINTER FLOOR COVERING
--- NOTE | 2020-01-18 08:00 | NUR ---
ASSESSMENT COMPLETE SEE FLOWSHEET. IN STABLE CONDITION. CALL LIGHT IN REACH.
--- NOTE | 2020-01-18 09:50 | NUR ---
Discussed discharge planning to LTAC with Eugenia from [facility]. Awaiting response regarding acceptance.
[2020-01-18 12:00] VITALS: BP 118/76
--- NOTE | 2020-01-18 13:05 | NUR ---
PHYSICAL THERAPY Patient seen this pm 1;1 for therapy visit and was supine in bed upon therapist arrival. Patient identified by name / and presented with IV treatment. Patient voices no new c/o's and states his L knee was feeling a little better today. Patient transfers supine to sit EOB with MOD A x 1, tolerating 4-5 minutes of static EOB sit, SBA. Patient completed sit to stand transfer, use of wh walker standing support, MIN X 2, tolerating approx 90 seconds static stand prior to mild c/o of L knee pain. Patient returned to supine in bed, requiring MIN A with B LE's and remained in bed with call light, tray table, telephone. Will continue per POC as toleated, total treatment time 14 minutes. Adolfo Saul, WREATH AND GARLAND MAKER HAND
--- NOTE | 2020-01-18 14:52 | NUR ---
Eugenia from [facility] stating she is submitting auth;
[2020-01-18 15:37] VITALS: BP 141/68
--- NOTE | 2020-01-18 18:37 | NUR ---
C/O BACK PAIN. REPOSITIONED W/O EFFECT ADMINISTERED PRN PERCOCET PER ORDER. GENT TROUGH PENDING HELD HUBER.
--- NOTE | 2020-01-18 18:38 | NUR ---
RECEIVED TROUGH RESULTS. NOTIFIED PHARMACY. WAITING REDOSE.
[2020-01-18 20:00] VITALS: BP 139/68
--- NOTE | 2020-01-18 22:00 | NUR ---
BLOOD SUGAR 201; COVERAGE PER EMAR.
[2020-01-19] VITALS: BP 104/67
--- NOTE | 2020-01-19 06:00 | NUR ---
BLOOD SUGAR 64; TOOK PATIENT JUICE, BLUE CRACKERS & PEANUT BUTTER. PA'S BATHED PATIENT. DRESSING CHANGED TO ABDOMEN ALSO AT THIS TIME. PT. TOLERATED WELL. PT. DENIES PAIN OR DISCOMFORT; CALL LIGHT WITHIN REACH.
[2020-01-19 07:27] LABS: HEMATOCRIT 33.1 % (42.0-52.0); MEAN CELL VOLUME 92.7 fl (80.0-94.0); MEAN CORPUSCULAR HGB 26.6 pg (27.0-31.0); MEAN CORPUSCULAR HGB CONC 28.7 g/dl (33.0-37.0); PLATELET COUNT AUTOMATED 136 10*3/uL (130-400); RED BLOOD COUNT 3.57 10*6/uL (4.50-5.90); RED CELL DISTRI WIDTH 16.8 % (0-14.5); WHITE BLOOD COUNT 4.5 10*3/uL (4.8-10.8)
[2020-01-19 07:52] LABS: BASOPHILS 1 % (0-1); PLATELET SUFFICIENCY NORMAL (NORMAL); POLYCHROMASIA SLIGHT; TOTAL CELLS COUNTED 100 #CELLS
[2020-01-19 08:00] VITALS: BP 121/66
--- NOTE | 2020-01-19 09:30 | NUR ---
MEDICATED WITH PRN PO PERCOCET FOR LOWER BACK PAIN.
--- NOTE | 2020-01-19 09:45 | NUR ---
PRN PO PERCOCET EFFECTIVE, PER PATIENT.
--- NOTE | 2020-01-19 09:50 | NUR ---
PODIATRY RESIDENT IN TO SEE PATIENT RE: PLAN OF CARE, BILATERAL UNNA BOOTS APPLIED.
--- NOTE | 2020-01-19 10:00 | NUR ---
PHYSICAL THERAPY PATIENT SEEN FOR 1:1 SESSION TODAY; DOING BETTER WITH FUNCTIONAL MOBILITY AND PAIN SEEMS TO BE ALSO DECREASING. ABLE TO COMPLETE FUNCTIONAL BED MOBILITY TODAY WITH SUP/MOD (I). GAIT WITH FWW FOR 40 FT X 2 WITH CGA OF 1. TRANSFERS ARE SBA/CGA OF 1. RECOMMEND CONTINUED PT SERVICES WHILE HERE TO ADDRESS DEFICITS. THANK YOU GILDARDO BRANTLEY PT
[2020-01-19 12:00] VITALS: BP 125/85
--- NOTE | 2020-01-19 13:17 | NUR ---
MEDICATED WITH PRN PO TYLENOL FOR C/O LOW BACK PAIN.
--- NOTE | 2020-01-19 14:10 | NUR ---
PRN PO TYLENOL EFFECTIVE, PER PATIENT.
[2020-01-19 16:00] VITALS: BP 132/68
--- NOTE | 2020-01-19 16:26 | NUR ---
MEDICATED WITH PRN PO PERCOCET FOR LOWER BACK PAIN.
--- NOTE | 2020-01-19 17:20 | NUR ---
PRN PO PERCOCET EFFECTIVE, PER PATIENT.
[2020-01-19 20:00] VITALS: BP 143/68
--- NOTE | 2020-01-19 20:30 | NUR ---
RESTING IN BED; VOICES NO C/O AT THIS TIME. CALL LIGHT WITHIN REACH.
[2020-01-20] VITALS: BP 120/57
--- NOTE | 2020-01-20 06:30 | NUR ---
DRESSING CHANGED TO ABDOMEN. PT. TOLERATED WELL.
[2020-01-20 08:00] VITALS: BP 123/73
[2020-01-20 09:15] VITALS: BP 128/72
[2020-01-20 12:00] VITALS: BP 124/77
--- NOTE | 2020-01-20 13:15 | NUR ---
PT REPORTS LOWER BACK PAIN 8/10 IN SEVERITY. MEDICATED PER THE MAR.
--- NOTE | 2020-01-20 13:46 | NUR ---
PT VERBALIZES A DECREASE IN PAIN AFTER RECEIVING PAIN MEDICATION.
[2020-01-20 16:00] VITALS: BP 133/64
[2020-01-20 20:00] VITALS: BP 149/69
--- NOTE | 2020-01-20 20:00 | NUR ---
Patient resting quietly with no c/o discomfort. Respirations easy and regular. Vital signs stable. No overt distress. ABDI PUENTE
--- NOTE | 2020-01-20 23:00 | NUR ---
PT DID NOT WANT TO GO ON BIPAP JUST YET
--- NOTE | 2020-01-20 23:42 | NUR ---
24 HR chart check completed.
[2020-01-21] VITALS: BP 135/59
--- NOTE | 2020-01-21 06:04 | NUR ---
MEDICATED WITH PO PERCOCET ORDERED PER PT REQUEST FOR C/O PAIN TO BACK RATED 8/10.
--- NOTE | 2020-01-21 07:24 | NUR ---
MEDICATION EFFECTIVE FOR PAIN.
[2020-01-21 08:00] VITALS: BP 146/83
--- NOTE | 2020-01-21 09:14 | NUR ---
[facility] submitted precert on Tuesday01/18/2020. Notified this morning that there has been a change in his IV antibiotics. Faxed clinical updates. Waiting for auth.
--- NOTE | 2020-01-21 10:04 | NUR ---
PHYSICAL THERAPY TREATMENT TIME: IN 09:30 AM - OUT 10:00 AM 30 MINUTES Patient presented to therapy in supine with head of bed elevated and bed alarm on. Patient reports LBP 6/10. Patient is on no spO2, except at night. Patient is BI-PAP machine at night. Patient gives informed consent. Patient identified by name and on wristband. Patient does not have any IVs and does not have a catheter. Patient transferred supine to sitting on EOB with SBA. Patient sat on EOB for 5 minutes SBA. Patient transferred STS <> EOB with SBA and verbal cues for proper hand placement. Patient stood at Walker wt shifting alternately onto L LE ,then R LE with SBA. Patient stood at Walker for a total of 5 minutes with SBA. Patient sat on EOB and performed Pritesh LE ther ex 2 x 10 reps each in all planes of movement for strengthening the LEs including LAQs, Marches, Hip ANbduction and Heel/toe raises x 20 reps each. Patient transferred sittign on EOB to supine in bed with SBA. Bed was flattened by therapist and patient was able to scoot himself up in the bed pulling himself up to HOB with his hands. Patient was left in supine in bed wit hhead of elevated, call light within reach and bed alarm on. Bed brake is locked. Tray table near patient with call light within reach and phone on table. Patient was 30 minutes 1:1 with this IRRIGATION FOREMAN. GWENDOLYN LEIGH IRRIGATION FOREMAN
[2020-01-21 12:00] VITALS: BP 96/57
--- NOTE | 2020-01-21 12:43 | NUR ---
Spoke to Rowena at [employer]. Informed patient is no longer on [facility] and waiting on auth for [facility]. She said she will keep his case open until the end of the week.
[2020-01-21 16:00] VITALS: BP 135/85
--- NOTE | 2020-01-21 17:38 | NUR ---
MEDICATED WITH NORCO FOR COMPLAINTS OF LOWER BACK PAIN. RATES PAIN A 8 ON A PAIN SCALE OF 1-10
[2020-01-21 20:00] VITALS: BP 118/58
--- NOTE | 2020-01-21 23:45 | NUR ---
PLACED PATIENT ON BIPAP FOR HS
[2020-01-22] VITALS: BP 129/69
[2020-01-22 07:56] VITALS: BP 120/64
--- NOTE | 2020-01-22 08:18 | NUR ---
MEDICATED WITH PRN PO TYLENOL FOR C/O LOWER BACK PAIN.
--- NOTE | 2020-01-22 09:00 | NUR ---
CM in to see patient. Discussed discharge planning. He states he doesn't want to go to [facility] at this time. He feels as though facilities are just pushing him around because they don't want to accept him. He would rather go home with home health care services. Discussed how he is walking around with his left leg pain. He states he is able to bear weight on it and get around without any issues with a walker. Discussed who was going to help him with his wound care and IV antibiotics. He states his sister and mother would help him and are more than willing to learn how to administer the home IV antibiotics. Will reach to home health companies to see who will be able to accept patient's insurance and IV antibiotics.
--- NOTE | 2020-01-22 09:05 | NUR ---
PHYSICAL THERAPY TREATMENT TIME: IN 09:05 AM - OUT 09:25 AM 20 MINUTES TOTAL Patient presented to therapy in supine in bed with head of bed elevated and bed alarm on. Patient is not on spO2. Patient does not have a catheter. Patient gives informed consent. Patient does not have any wt bearing restrictions. Patient has no pain in the knees this morning. Patient transfers supine <> sitting on EOB with SBA. Patient completed STS <> EOB with MAX A X 1 with verbal cues for proper hand placement. Patient stood at Walker for 5 minutes total with SBA and verbal cues for upright posture, pushing down on walker and locking knees into extension. Patient wt. shifted lateral <> 40 times while standing. Patient performed seated bilateral LE ther ex 2 x 10 reps each in all palnes of movement for strengthening the bilateral LEs including marches, LAQs, hip abduction and heel/toe raises. Patient's Knees began to be very painful in stadning and he had to sit down after the 5 minutes of standing tolerance. Walking was precluded because of the pain in the knees. Patient transferred back to supine in bed with SBA. Patient was left in supine in bed with head of bed elevated , call light within reach and bed alarm on. Patient was 1:1 with this UTILITY REPAIRER for 20 minutes total. GWENDOLYN LEIGH UTILITY REPAIRER
--- NOTE | 2020-01-22 09:10 | NUR ---
PRN PO TYLENOL EFFECTIVE, PER PATIENT.
--- NOTE | 2020-01-22 09:34 | NUR ---
Spoke to Dr. Hernandez regarding discharge planning and patient's IV antibiotics. She plans on putting patient on Maxipime 2 GM IV q8h x 6 days. She states she will call [facility] and inform the pharmacist. She will write the prescription when she rounds later today.
--- NOTE | 2020-01-22 10:56 | NUR ---
Spoke to Jazzmine at [facility]. They are not able to take patient's home IV antibiotics. Will reach out to Gordon at [facility].
--- NOTE | 2020-01-22 11:01 | NUR ---
Spoke to Gordon at [facility] regarding taking patient on for home health care services. Unfortunately they are not in network with patient's insurance. Reached out to [facility]. Demographics and clinical given to Shanell. They are not currently accepting Medicare patients. She will discuss with their board winder and get back to CM within the hour. She states they would look at doing this pro jennifer. Awaiting return call.
--- NOTE | 2020-01-22 11:15 | NUR ---
Reached out to [facility] to see if they would be able to accept patient's home services. Awaiting response.
[2020-01-22 12:00] VITALS: BP 102/65
--- NOTE | 2020-01-22 12:09 | NUR ---
Received call from Shanell at [facility]. They are able to accept patient. Will fax referral. Spoke to Rocio at [facility]. Dr. Hernandez did speak to their pharmacist regarding Maxipime 2 GM IV q8h. Waiting on prescription.
--- NOTE | 2020-01-22 12:22 | NUR ---
Faxed home health order and clinical to [facility].
--- NOTE | 2020-01-22 13:29 | NUR ---
PRN PO PERCOCET EFFECTIVE, PER PATIENT.
--- NOTE | 2020-01-22 15:06 | NUR ---
Discussed with patient possible discharge tomorrow with home IV antibiotics from [facility] and home health care services through [facility] in [place]. Goal is to get patient home for his 1400 dose. Patient would like to see about having wound care on his left leg when he comes to the wound care clinic for his abdominal wound. He states it is too difficult to get into Dr. Medina's office with his wheelchair.
[2020-01-22 16:00] VITALS: BP 121/77
--- NOTE | 2020-01-22 16:45 | NUR ---
MEDICATED WITH PRN PO TYLENOL FOR C/O BACK PAIN.
--- NOTE | 2020-01-22 17:40 | NUR ---
PRN PO TYLENOL EFFECTIVE, PER PATIENT.
--- NOTE | 2020-01-22 18:45 | NUR ---
MEDICATED WITH PRN PO PERCOCET FOR LOW BACK PAIN.
[2020-01-22 20:00] VITALS: BP 158/83
--- NOTE | 2020-01-22 20:00 | NUR ---
PATIENT RESTING IN BED. VOICES NO COMPLAINTS. VSS. RESPIRATIONS EASY, NON LABORED. BED IN LOWEST POSITION,CALL LIGHT WITHIN REACH. WILL CONTINUE TO MONIOR.
[2020-01-23] VITALS: BP 133/65
--- NOTE | 2020-01-23 06:32 | NUR ---
PATIENT C/O BACK PAIN RATES 11/04. MEDICATED WITH PERCOCET AT THIS TIME. WILL CHECK EFFECTIVENESS.
[2020-01-23 06:38] LABS: BASO % 0.4 % (0.0-1.0); EOS # 0.1 10*3/uL (0.0-0.4); EOS % 2.3 % (1.0-4.0); HEMATOCRIT 30.5 % (42.0-52.0); LYMPH # 0.7 10*3/uL (1.3-4.4); LYMPH % 13.8 % (27.0-41.0); MEAN CELL VOLUME 91.6 fl (80.0-94.0); MEAN CORPUSCULAR HGB 26.4 pg (27.0-31.0); MEAN CORPUSCULAR HGB CONC 28.9 g/dl (33.0-37.0); MEAN PLATELET VOLUME 10.6 fl (9.6-12.3); MONO # 0.3 10*3/uL (0.1-1.0); NEUT # 3.6 10*3/uL (2.3-7.9); NEUT % 75.7 % (47.0-73.0); PLATELET COUNT AUTOMATED 137 10*3/uL (130-400); RED BLOOD COUNT 3.33 10*6/uL (4.50-5.90); RED CELL DISTRI WIDTH 16.9 % (0-14.5); WHITE BLOOD COUNT 4.7 10*3/uL (4.8-10.8)
--- NOTE | 2020-01-23 07:01 | NUR ---
Received prescription from Dr. Hernandez for cefepime 2 gm IV q8h for 6 days. Faxed to [facility] and [facility].
[2020-01-23 07:05] LABS: ALBUMIN 2.7 gm/dl (3.1-4.5); ALKALINE PHOSPHATASE 439 U/L (45-117); BUN 44 mg/dl (7-24); CHLORIDE 111 mmol/L (98-107); CREATININE 1.15 mg/dL (0.70-1.30); POTASSIUM 3.9 mmol/L (3.5-5.1); SGOT/AST 119 IU/L (3-35); SGPT/ALT 86 U/L (12-78); SODIUM 146 mmol/L (136-145); TOTAL PROTEIN 6.7 gm/dL (6.4-8.2)
--- NOTE | 2020-01-23 08:36 | NUR ---
PHYSICAL THERAPY TREATMENT TIME: IN 07:45 AM - OUT 08:12 AM - 27 MINUTES TOTAL Patient presented to therapy in supine with head of bed elevated and bed alarm on. Patient gives informed consent for treatment. Patient was identified by name and on wristband. Patient reports a 8/10 pain in the low back. Knee pain is 4/10 bilaterally. Patient performed supine to sitting on EOB transfer with SBA. Patient has no wt bearing restrictions. Patient uses a Walker. Patient sat on EOB for 5 minutes and perfromed seated bilateral LE ther ex 2 x 10 reps each in all planes of movement including LAQs, Hip Abduction, Marches, heel/toe raises for strengthening in order to improve patient's functional mobility. Patient completed STS from EOB witH SBA with bed raised up a significant distance. Patient ambulated 5' x 2 forwards and 5' x 2 backwards with SBA. Verbal cues were required for pushing down on Walker with hands, upright posture and and locking knees int oextension when wt bearing. Patient performed lateral WT shifting at Walker with SBA x 50 wt shifts. Patient transferred back to supine in bed with SBA. Patient movemnt himself up in bed by putting bed flat and then using hands to pull himself up to head of bed. Patient was left in supine with head of bed elevated, call light within reach and bed alarm on. Patient was 1:1 with this CLINICAL TRANSPLANT COORDINATOR for 27 minutes total. GWENDOLYN LEIGH CLINICAL TRANSPLANT COORDINATOR
--- NOTE | 2020-01-23 09:13 | NUR ---
DISCHARGE WOUND PHOTOS TAKEN, EXCEPT FOR LEFT LEG WOUNDS WHICH ARE COVERED WITH UNNA BOOTS THAT ARE MANAGED BY PODIATRY. DR. HINTON IN TO SEE PATIENT RE: PLAN OF CARE AND IS ENTERING DISCHARGE ORDERS. PATIENT WILL DISCHARGE TO HOME WITH HOME HEALTH CARE SERVICES AND IV INFUSIONS OF MAXEPIME 3X DAILY VIA LEFT ARM PICC.
--- NOTE | 2020-01-23 09:40 | NUR ---
Spoke to Rocio at [facility] Informed prescription was faxed this morning for his IV antibiotic. She will check faxes. Informed patient will be discharging today and the plan is to get patient home before his 2pm dose. She states she will check with the pharmacist and get back to . Informed home health care company was [facility] and given phone and fax numbers.
--- NOTE | 2020-01-23 10:38 | NUR ---
PEG PLACEMENT CONFIRMED WITH AIR BOLUS, FLUSHED WITH 50ML H20, 40ML ASPIRATED. RESUMING TUBE FEEDING WITH JEVITY 1.2 JAQUELINE AT 45ML/HR, WILL CONTINUE RESIDUAL CHECKS FREQUENTLY TO ASSESS TUBE FEEDING TOLERANCE.
--- NOTE | 2020-01-23 11:03 | NUR ---
Spoke to Rocio at [facility]. Patient is all set to go home with his IV antibiotics.
[2020-01-23] MEDS ORDERED: FLOMAX0.4 MG PO (11:15)
[2020-01-23] MEDS ORDERED: CEFEPIME2 GM/100 M IV (11:16)
--- NOTE | 2020-01-23 11:33 | NUR ---
CM in to see patient to discuss his discharge today. He states [facility] called him and said his medications would be delivered today. He requested an appt with Dr. English for follow up. Called Dr. English's office patient has an appt tomorrow 01/23 at 2pm. Discussed discharge planning with nurse.
[2020-01-23 12:00] VITALS: BP 136/69
--- NOTE | 2020-01-23 13:31 | NUR ---
Discharge instructions reviewed with patient. Patient receptive and verbalizes understanding. Follow-up care arranged. Written instructions given to patient. PATIENT DISCHARGED TO [facility] BY WHEELCHAIR, ACCOMPANIED BY [facility], FOR TRANSPORT HOME BY PRIVATE VEHICLE WITH HIS MOTHER. VISITING NURSE TO MEET THEM AT HIS HOUSE. JIMMY CROUCH
--- NOTE | 2020-01-24 08:13 | NUR ---
PHYSICAL THERAPY CO-SIGN I approve of the Physical Therapy notes written above. Sarah Haider PT
== END 2020-01-23 13:31 | disposition home or self-care (01) | DRG 871 ==
LOC: ED 00:46 → 5E 02:39 → EDHOLD 02:39 → ICCU 02:39 → 5E 03:04 → ICCU 03:43 → 5E 01-15 15:08
PROVIDERS: Emergency Medicine; Internal Medicine; Internal Medicine Critical Care Medicine; Internal Medicine Nephrology; Podiatrist; Social Worker Clinical; ADMIT Internal Medicine; ATTEND Internal Medicine
PROC: 5A09357 Assistance with Respiratory Ventilation, Less than 24 Consecutive Hours, Continuous Positive Airway Pressure (ICD-10-PCS; principal; 2020-01-12)
PROC: 5A09357 Assistance with Respiratory Ventilation, Less than 24 Consecutive Hours, Continuous Positive Airway Pressure (ICD-10-PCS; 2020-01-13)
PROC: 02HV33Z Insertion of Infusion Device into Superior Vena Cava, Percutaneous Approach (ICD-10-PCS; 2020-01-14)
PROC: 5A09357 Assistance with Respiratory Ventilation, Less than 24 Consecutive Hours, Continuous Positive Airway Pressure (ICD-10-PCS; 2020-01-14)
PROC: 5A09357 Assistance with Respiratory Ventilation, Less than 24 Consecutive Hours, Continuous Positive Airway Pressure (ICD-10-PCS; 2020-01-15)
PROC: 5A09357 Assistance with Respiratory Ventilation, Less than 24 Consecutive Hours, Continuous Positive Airway Pressure (ICD-10-PCS; 2020-01-16)
PROC: 5A09357 Assistance with Respiratory Ventilation, Less than 24 Consecutive Hours, Continuous Positive Airway Pressure (ICD-10-PCS; 2020-01-18)
PROC: 5A09357 Assistance with Respiratory Ventilation, Less than 24 Consecutive Hours, Continuous Positive Airway Pressure (ICD-10-PCS; 2020-01-19)
PROC: 5A09357 Assistance with Respiratory Ventilation, Less than 24 Consecutive Hours, Continuous Positive Airway Pressure (ICD-10-PCS; 2020-01-21)
PROC: 5A09357 Assistance with Respiratory Ventilation, Less than 24 Consecutive Hours, Continuous Positive Airway Pressure (ICD-10-PCS; 2020-01-22)
DX: A41.89 Other specified sepsis (principal); E43 Unspecified severe protein-calorie malnutrition; J96.22 Acute and chronic respiratory failure with hypercapnia; J96.21 Acute and chronic respiratory failure with hypoxia; N17.9 Acute kidney failure, unspecified; L03.116 Cellulitis of left lower limb; E66.2 Morbid (severe) obesity with alveolar hypoventilation; N18.4 Chronic kidney disease, stage 4 (severe); R18.8 Other ascites; E87.0 Hyperosmolality and hypernatremia; Z68.43 Body mass index [BMI] 50.0-59.9, adult; I50.32 Chronic diastolic (congestive) heart failure; E87.6 Hypokalemia; J43.2 Centrilobular emphysema; R26.2 Difficulty in walking, not elsewhere classified; K74.60 Unspecified cirrhosis of liver; E03.9 Hypothyroidism, unspecified; E11.22 Type 2 diabetes mellitus with diabetic chronic kidney disease; R62.7 Adult failure to thrive; G25.81 Restless legs syndrome; M19.90 Unspecified osteoarthritis, unspecified site; M47.816 Spondylosis without myelopathy or radiculopathy, lumbar region; E11.621 Type 2 diabetes mellitus with foot ulcer; I95.9 Hypotension, unspecified; M79.3 Panniculitis, unspecified; I87.8 Other specified disorders of veins; M10.9 Gout, unspecified; E87.5 Hyperkalemia; D50.9 Iron deficiency anemia, unspecified; L97.529 Non-pressure chronic ulcer of other part of left foot with unspecified severity; Z20.828 Contact with and (suspected) exposure to other viral communicable diseases; Z82.49 Family history of ischemic heart disease and other diseases of the circulatory system; Z83.3 Family history of diabetes mellitus

== ENCOUNTER 2020-01-26 07:48 | Inpatient (IN) | payer MEDICARE ==
[~2020-01-26] VITALS: Ht 172.7 cm; Wt 157.6 kg
[2020-01-26] VITALS (7 sets, daily range): BP systolic 103–139; BP diastolic 54–85
[~2020-01-26 07:48] MED LIST changes: +CEFEPIME2 GM/100 M IV; +FLOMAX0.4 MG PO; +MERREM IV1 GM IV; +POTASSIUM CHLO20 MEQ PO
[2020-01-26 08:30] LABS: BASO # 0.1 10*3/uL (0.0-0.1); BASO % 0.8 % (0.0-1.0); EOS # 0.1 10*3/uL (0.0-0.4); EOS % 1.8 % (1.0-4.0); HEMATOCRIT 32.7 % (42.0-52.0); LYMPH # 0.6 10*3/uL (1.3-4.4); LYMPH % 9.8 % (27.0-41.0); MEAN CELL VOLUME 90.6 fl (80.0-94.0); MEAN CORPUSCULAR HGB 26.6 pg (27.0-31.0); MEAN CORPUSCULAR HGB CONC 29.4 g/dl (33.0-37.0); MEAN PLATELET VOLUME 11.2 fl (9.6-12.3); MONO # 0.6 10*3/uL (0.1-1.0); MONO % 9.3 % (3.0-9.0); NEUT # 4.8 10*3/uL (2.3-7.9); NEUT % 77.3 % (47.0-73.0); PLATELET COUNT AUTOMATED 120 10*3/uL (130-400); RED BLOOD COUNT 3.61 10*6/uL (4.50-5.90); RED CELL DISTRI WIDTH 17.2 % (0-14.5); WHITE BLOOD COUNT 6.2 10*3/uL (4.8-10.8)
[2020-01-26 08:44] LABS: ALBUMIN 2.8 gm/dl (3.1-4.5); ALKALINE PHOSPHATASE 499 U/L (45-117); BUN 48 mg/dl (7-24); CHLORIDE 113 mmol/L (98-107); CREATININE 1.28 mg/dL (0.70-1.30); POTASSIUM 3.1 mmol/L (3.5-5.1); SGOT/AST 144 IU/L (3-35); SGPT/ALT 136 U/L (12-78); SODIUM 147 mmol/L (136-145); TOTAL PROTEIN 7.1 gm/dL (6.4-8.2)
[2020-01-27] VITALS: BP 110/61
[2020-01-27 08:00] VITALS: BP 108/58
[2020-01-27 12:00] VITALS: BP 119/64
[2020-01-27 16:00] VITALS: BP 118/56
[2020-01-27 20:00] VITALS: BP 119/52
[2020-01-28] VITALS: BP 121/66
[2020-01-28 08:00] VITALS: BP 112/64
[2020-01-28 10:21] LABS: BUN 37 mg/dl (7-24); CHLORIDE 113 mmol/L (98-107); CREATININE 1.08 mg/dL (0.70-1.30); POTASSIUM 4.2 mmol/L (3.5-5.1); SODIUM 142 mmol/L (136-145)
[2020-01-28 10:33] LABS: BASO % 0.6 % (0.0-1.0); EOS # 0.1 10*3/uL (0.0-0.4); EOS % 1.4 % (1.0-4.0); LYMPH # 0.6 10*3/uL (1.3-4.4); LYMPH % 16.8 % (27.0-41.0); MEAN CELL VOLUME 90.6 fl (80.0-94.0); MEAN CORPUSCULAR HGB 26.9 pg (27.0-31.0); MEAN CORPUSCULAR HGB CONC 29.7 g/dl (33.0-37.0); MEAN PLATELET VOLUME 11.1 fl (9.6-12.3); MONO # 0.2 10*3/uL (0.1-1.0); MONO % 6.1 % (3.0-9.0); NEUT # 2.6 10*3/uL (2.3-7.9); NEUT % 74.5 % (47.0-73.0); PLATELET COUNT AUTOMATED 106 10*3/uL (130-400); RED CELL DISTRI WIDTH 17.5 % (0-14.5); WHITE BLOOD COUNT 3.5 10*3/uL (4.8-10.8)
[2020-01-28 12:00] VITALS: BP 124/63
[2020-01-28 16:00] VITALS: BP 123/67; BP 126/64
[2020-01-28 20:00] VITALS: BP 135/65
[2020-01-29] VITALS: BP 113/60
[2020-01-29 06:43] LABS: BASO % 0.6 % (0.0-1.0); EOS # 0.1 10*3/uL (0.0-0.4); EOS % 2.3 % (1.0-4.0); HEMATOCRIT 30.6 % (42.0-52.0); LYMPH # 0.7 10*3/uL (1.3-4.4); LYMPH % 18.4 % (27.0-41.0); MEAN CELL VOLUME 91.3 fl (80.0-94.0); MEAN CORPUSCULAR HGB 26.6 pg (27.0-31.0); MEAN CORPUSCULAR HGB CONC 29.1 g/dl (33.0-37.0); MEAN PLATELET VOLUME 10.8 fl (9.6-12.3); MONO # 0.4 10*3/uL (0.1-1.0); MONO % 9.9 % (3.0-9.0); NEUT # 2.4 10*3/uL (2.3-7.9); NEUT % 67.7 % (47.0-73.0); PLATELET COUNT AUTOMATED 136 10*3/uL (130-400); RED BLOOD COUNT 3.35 10*6/uL (4.50-5.90); RED CELL DISTRI WIDTH 17.5 % (0-14.5); WHITE BLOOD COUNT 3.5 10*3/uL (4.8-10.8)
[2020-01-29 06:59] LABS: BUN 37 mg/dl (7-24); CHLORIDE 111 mmol/L (98-107); CREATININE 1.05 mg/dL (0.70-1.30); SODIUM 144 mmol/L (136-145)
[2020-01-29 07:00] LABS: POTASSIUM 3.1 mmol/L (3.5-5.1)
[2020-01-29 08:00] VITALS: BP 112/72
[2020-01-29 12:00] VITALS: BP 120/70
[2020-01-29 16:00] VITALS: BP 128/72
[2020-01-29 20:00] VITALS: BP 118/67
[2020-01-30] VITALS: BP 127/58
[2020-01-30 03:02] LABS: BILIRUBIN Negative (Negative); BLOOD 1+ (Negative); CLARITY Clear (Clear); COLOR Yellow (Yellow); GLUCOSE 3+ (Negative); KETONE Negative (Negative); LEUKO ESTERASE Negative (Negative); NITRITE Negative (Negative); SPECIFIC GRAVITY 1.015 (1.001-1.030)
[2020-01-30 03:10] LABS: WBC 0-2 wbc/hpf (0-5)
[2020-01-30 08:00] VITALS: BP 136/67
[2020-01-30] MEDS ORDERED: DICLOFENAC SOD100 G1 T (08:21)
[2020-01-30] MEDS ORDERED: LINEZOLID600 MG PO (08:21)
[2020-01-30] MEDS ORDERED: COLCHICINE0.6 M2 PO (08:29)
[2020-01-30] MEDS ORDERED: K-TAB10 MEQ PO (08:31)
[2020-01-30 12:00] VITALS: BP 124/62
== END 2020-01-30 14:37 | disposition home or self-care (01) | DRG 872 ==
LOC: ED 07:48 → EDHOLD 09:40 → 4E 09:40
PROVIDERS: Emergency Medicine; Internal Medicine; ADMIT Internal Medicine; ATTEND Internal Medicine
PROC: 0HB7XZZ Excision of Abdomen Skin, External Approach (ICD-10-PCS; principal; 2020-01-28)
DX: A41.9 Sepsis, unspecified organism (principal); E87.0 Hyperosmolality and hypernatremia; N17.9 Acute kidney failure, unspecified; Z68.43 Body mass index [BMI] 50.0-59.9, adult; J96.10 Chronic respiratory failure, unspecified whether with hypoxia or hypercapnia; I50.42 Chronic combined systolic (congestive) and diastolic (congestive) heart failure; L03.311 Cellulitis of abdominal wall; M10.9 Gout, unspecified; E11.65 Type 2 diabetes mellitus with hyperglycemia; E87.8 Other disorders of electrolyte and fluid balance, not elsewhere classified; E87.6 Hypokalemia; J44.9 Chronic obstructive pulmonary disease, unspecified; E66.01 Morbid (severe) obesity due to excess calories; G47.33 Obstructive sleep apnea (adult) (pediatric); E78.2 Mixed hyperlipidemia; R62.7 Adult failure to thrive; I11.0 Hypertensive heart disease with heart failure; L98.492 Non-pressure chronic ulcer of skin of other sites with fat layer exposed; E03.9 Hypothyroidism, unspecified; Z98.84 Bariatric surgery status; Z87.891 Personal history of nicotine dependence; Z82.49 Family history of ischemic heart disease and other diseases of the circulatory system; Z80.6 Family history of leukemia; Z83.3 Family history of diabetes mellitus; Z83.79 Family history of other diseases of the digestive system; Z84.89 Family history of other specified conditions

== ENCOUNTER 2020-02-02 08:57 | Emergency (ER) | payer MEDICARE ==
[~2020-02-02 08:57] MED LIST changes: +DICLOFENAC SOD100 G1 T; +K-TAB10 MEQ PO; +LINEZOLID600 MG PO
[2020-02-02 09:23] LABS: BASO % 0.5 % (0.0-1.0); EOS # 0.1 10*3/uL (0.0-0.4); EOS % 0.9 % (1.0-4.0); HEMATOCRIT 32.4 % (42.0-52.0); LYMPH # 0.7 10*3/uL (1.3-4.4); LYMPH % 8.9 % (27.0-41.0); MEAN CORPUSCULAR HGB 26.4 pg (27.0-31.0); MONO # 0.5 10*3/uL (0.1-1.0); MONO % 5.7 % (3.0-9.0); NEUT # 6.6 10*3/uL (2.3-7.9); NEUT % 83.4 % (47.0-73.0); PLATELET COUNT AUTOMATED 124 10*3/uL (130-400); RED BLOOD COUNT 3.56 10*6/uL (4.50-5.90); RED CELL DISTRI WIDTH 17.5 % (0-14.5)
[2020-02-02 09:38] LABS: ALBUMIN 2.5 gm/dl (3.1-4.5); ALKALINE PHOSPHATASE 460 U/L (45-117); BUN 41 mg/dl (7-24); CHLORIDE 112 mmol/L (98-107); CREATININE 1.15 mg/dL (0.70-1.30); POTASSIUM 3.2 mmol/L (3.5-5.1); SGOT/AST 54 IU/L (3-35); SGPT/ALT 101 U/L (12-78); SODIUM 144 mmol/L (136-145); TOTAL PROTEIN 6.9 gm/dL (6.4-8.2)
== END 2020-02-02 11:04 | disposition home or self-care (01) ==
LOC: ED 08:57
PROVIDERS: Emergency Medicine
DX: M79.605 Pain in left leg (principal); G89.29 Other chronic pain; Z79.899 Other long term (current) drug therapy; Z79.4 Long term (current) use of insulin

== ENCOUNTER 2020-02-11 18:13 | Inpatient (IN) | payer MEDICARE ==
[~2020-02-11] VITALS: Ht 180.3 cm; Wt 164.2 kg
[2020-02-11 18:21] VITALS: BP 123/51
[2020-02-11 19:55] LABS: BASO % 0.3 % (0.0-1.0); EOS # 0.1 10*3/uL (0.0-0.4); EOS % 1.4 % (1.0-4.0); HEMATOCRIT 33.9 % (42.0-52.0); LYMPH # 0.7 10*3/uL (1.3-4.4); LYMPH % 10.5 % (27.0-41.0); MEAN CELL VOLUME 91.1 fl (80.0-94.0); MEAN CORPUSCULAR HGB 26.6 pg (27.0-31.0); MEAN CORPUSCULAR HGB CONC 29.2 g/dl (33.0-37.0); MONO # 0.6 10*3/uL (0.1-1.0); NEUT # 5.5 10*3/uL (2.3-7.9); NEUT % 79.2 % (47.0-73.0); PLATELET COUNT AUTOMATED 97 10*3/uL (130-400); RED BLOOD COUNT 3.72 10*6/uL (4.50-5.90)
[2020-02-11 20:11] LABS: ALBUMIN 2.2 gm/dl (3.1-4.5); ALKALINE PHOSPHATASE 434 U/L (45-117); BUN 35 mg/dl (7-24); CHLORIDE 118 mmol/L (98-107); CREATININE 0.98 mg/dL (0.70-1.30); POTASSIUM 3.6 mmol/L (3.5-5.1); SGOT/AST 55 IU/L (3-35); SGPT/ALT 54 U/L (12-78); SODIUM 149 mmol/L (136-145); TOTAL PROTEIN 6.5 gm/dL (6.4-8.2)
[2020-02-11 20:30] VITALS: BP 118/63
[2020-02-11 23:38] VITALS: BP 102/43
[2020-02-12] VITALS: BP 125/63
[2020-02-12] MEDS ORDERED: PERCOCET 10-321 EACH PO (01:41)
[2020-02-12] MEDS ORDERED: INSULIN LI100 UNIT/1 SQ (01:46)
[2020-02-12] MEDS ORDERED: ALDACTONE25 MG PO (01:47)
[2020-02-12 08:00] VITALS: BP 126/60
[2020-02-12 12:00] VITALS: BP 128/63
[2020-02-12 16:00] VITALS: BP 130/68
[2020-02-12 20:00] VITALS: BP 133/61
[2020-02-13] VITALS: BP 121/50; BP 136/72
[2020-02-13 02:45] LABS: BILIRUBIN Negative (Negative); BLOOD Negative (Negative); CLARITY Clear (Clear); COLOR Yellow (Yellow); GLUCOSE Negative (Negative); KETONE Negative (Negative); LEUKO ESTERASE Negative (Negative); NITRITE Negative (Negative); SPECIFIC GRAVITY 1.015 (1.001-1.030); UROBILINOGEN 0.2 E.U./dl (0.0-1.0)
[2020-02-13 03:07] LABS: YEAST TRACE
[2020-02-13 08:00] VITALS: BP 126/66
[2020-02-13 12:00] VITALS: BP 126/69
[2020-02-13 16:00] VITALS: BP 120/59
[2020-02-13 20:09] VITALS: BP 143/73
[2020-02-14] VITALS: BP 126/50
[2020-02-14 08:00] VITALS: BP 130/71
[2020-02-14 12:00] VITALS: BP 138/71
[2020-02-14] MEDS ORDERED: LEVOFLOXACIN500 MG PO ×2 (15:29)
[2020-02-14 16:00] VITALS: BP 138/71
[2020-02-14 20:00] VITALS: BP 135/68
[2020-02-15] VITALS: BP 117/60
[2020-02-15 09:00] VITALS: BP 136/65
[2020-02-15 12:00] VITALS: BP 130/66
[2020-02-15 16:00] VITALS: BP 142/76
== END 2020-02-15 18:27 | disposition home health service (06) | DRG 602 ==
LOC: ED 18:13 → 5E 21:04 → EDHOLD 21:04 → 5E 22:17
PROVIDERS: Emergency Medicine; ADMIT Internal Medicine; ATTEND Internal Medicine
PROC: 5A09357 Assistance with Respiratory Ventilation, Less than 24 Consecutive Hours, Continuous Positive Airway Pressure (ICD-10-PCS; principal; 2020-02-14)
DX: L03.116 Cellulitis of left lower limb (principal); E43 Unspecified severe protein-calorie malnutrition; L03.311 Cellulitis of abdominal wall; E66.2 Morbid (severe) obesity with alveolar hypoventilation; J96.10 Chronic respiratory failure, unspecified whether with hypoxia or hypercapnia; F33.1 Major depressive disorder, recurrent, moderate; R18.8 Other ascites; N18.4 Chronic kidney disease, stage 4 (severe); I50.32 Chronic diastolic (congestive) heart failure; Z68.43 Body mass index [BMI] 50.0-59.9, adult; R62.7 Adult failure to thrive; J43.9 Emphysema, unspecified; E11.65 Type 2 diabetes mellitus with hyperglycemia; E11.42 Type 2 diabetes mellitus with diabetic polyneuropathy; E03.9 Hypothyroidism, unspecified; G25.81 Restless legs syndrome; M47.816 Spondylosis without myelopathy or radiculopathy, lumbar region; K74.60 Unspecified cirrhosis of liver; N40.1 Benign prostatic hyperplasia with lower urinary tract symptoms; R33.8 Other retention of urine; K21.00 Gastro-esophageal reflux disease with esophagitis, without bleeding; M1A.9XX0 Chronic gout, unspecified, without tophus (tophi); E11.22 Type 2 diabetes mellitus with diabetic chronic kidney disease; Z82.49 Family history of ischemic heart disease and other diseases of the circulatory system; Z83.3 Family history of diabetes mellitus

== ENCOUNTER 2020-02-25 16:10 | Inpatient (IN) | payer MEDICARE ==
[~2020-02-25] VITALS: Ht 172.7 cm; Wt 162.5 kg
[~2020-02-25 16:10] MED LIST changes: +INSULIN LI100 UNIT/1 SQ; +LEVOFLOXACIN500 MG PO
[2020-02-25 16:16] VITALS: BP 129/65
[2020-02-25 16:54] VITALS: BP 113/56
[2020-02-25 17:26] LABS: BASO % 0.7 % (0.0-1.0); EOS # 0.1 10*3/uL (0.0-0.4); EOS % 2.6 % (1.0-4.0); HEMATOCRIT 33.2 % (42.0-52.0); LYMPH # 0.7 10*3/uL (1.3-4.4); LYMPH % 16.4 % (27.0-41.0); MEAN CELL VOLUME 91.7 fl (80.0-94.0); MEAN CORPUSCULAR HGB 26.5 pg (27.0-31.0); MEAN CORPUSCULAR HGB CONC 28.9 g/dl (33.0-37.0); MEAN PLATELET VOLUME 9.9 fl (9.6-12.3); MONO # 0.4 10*3/uL (0.1-1.0); MONO % 9.5 % (3.0-9.0); NEUT % 70.1 % (47.0-73.0); PLATELET COUNT AUTOMATED 127 10*3/uL (130-400); RED BLOOD COUNT 3.62 10*6/uL (4.50-5.90); RED CELL DISTRI WIDTH 19.1 % (0-14.5); WHITE BLOOD COUNT 4.2 10*3/uL (4.8-10.8)
[2020-02-25 17:43] LABS: ALBUMIN 2.2 gm/dl (3.1-4.5); ALKALINE PHOSPHATASE 367 U/L (45-117); BUN 34 mg/dl (7-24); CHLORIDE 119 mmol/L (98-107); CREATININE 0.86 mg/dL (0.70-1.30); POTASSIUM 3.4 mmol/L (3.5-5.1); SGOT/AST 51 IU/L (3-35); SGPT/ALT 53 U/L (12-78); SODIUM 149 mmol/L (136-145); TOTAL PROTEIN 6.6 gm/dL (6.4-8.2)
[2020-02-25 18:24] LABS: TROPONIN I < 0.015 ng/ml (<0.045)
[2020-02-25 18:52] VITALS: BP 128/75
[2020-02-25 19:57] VITALS: BP 123/78
[2020-02-25 20:40] VITALS: BP 138/80
[2020-02-25 21:37] LABS: BILIRUBIN Negative (Negative); BLOOD Negative (Negative); CLARITY Clear (Clear); COLOR Yellow (Yellow); GLUCOSE Negative (Negative); KETONE Negative (Negative); LEUKO ESTERASE Negative (Negative); NITRITE Negative (Negative); UROBILINOGEN 0.2 E.U./dl (0.0-1.0)
[2020-02-25 21:48] LABS: WBC 0-2 wbc/hpf (0-5)
[2020-02-26] VITALS: BP 114/51
[2020-02-26 06:46] LABS: BUN 33 mg/dl (7-24); CHLORIDE 116 mmol/L (98-107); CREATININE 0.89 mg/dL (0.70-1.30); POTASSIUM 3.5 mmol/L (3.5-5.1); SODIUM 147 mmol/L (136-145)
[2020-02-26 08:00] VITALS: BP 113/52; BP 118/72
[2020-02-26] MEDS ORDERED: NORVASC5 MG PO (10:51)
[2020-02-26 12:00] VITALS: BP 140/89
[2020-02-26 16:00] VITALS: BP 122/63
[2020-02-26 20:00] VITALS: BP 130/67
[2020-02-27] VITALS: BP 103/51
[2020-02-27 06:56] LABS: BASO % 0.6 % (0.0-1.0); EOS # 0.1 10*3/uL (0.0-0.4); EOS % 2.5 % (1.0-4.0); LYMPH # 0.7 10*3/uL (1.3-4.4); LYMPH % 20.1 % (27.0-41.0); MEAN CELL VOLUME 92.2 fl (80.0-94.0); MEAN CORPUSCULAR HGB 26.5 pg (27.0-31.0); MEAN CORPUSCULAR HGB CONC 28.8 g/dl (33.0-37.0); MEAN PLATELET VOLUME 10.7 fl (9.6-12.3); MONO # 0.4 10*3/uL (0.1-1.0); MONO % 11.4 % (3.0-9.0); NEUT # 2.3 10*3/uL (2.3-7.9); NEUT % 64.6 % (47.0-73.0); PLATELET COUNT AUTOMATED 133 10*3/uL (130-400); RED BLOOD COUNT 3.47 10*6/uL (4.50-5.90); RED CELL DISTRI WIDTH 19.4 % (0-14.5); WHITE BLOOD COUNT 3.6 10*3/uL (4.8-10.8)
[2020-02-27 07:06] LABS: BUN 32 mg/dl (7-24); CHLORIDE 116 mmol/L (98-107); CREATININE 0.89 mg/dL (0.70-1.30); POTASSIUM 3.6 mmol/L (3.5-5.1); SODIUM 149 mmol/L (136-145)
[2020-02-27 08:00] VITALS: BP 124/72
[2020-02-27 08:15] VITALS: BP 122/60
[2020-02-27 12:00] VITALS: BP 118/54
[2020-02-27 16:00] VITALS: BP 110/56
[2020-02-27 20:00] VITALS: BP 134/68
[2020-02-28] VITALS: BP 130/59
[2020-02-28 06:26] LABS: BASO % 0.6 % (0.0-1.0); EOS # 0.1 10*3/uL (0.0-0.4); HEMATOCRIT 31.2 % (42.0-52.0); LYMPH # 0.7 10*3/uL (1.3-4.4); LYMPH % 20.7 % (27.0-41.0); MEAN CELL VOLUME 90.7 fl (80.0-94.0); MEAN CORPUSCULAR HGB 26.5 pg (27.0-31.0); MEAN CORPUSCULAR HGB CONC 29.2 g/dl (33.0-37.0); MEAN PLATELET VOLUME 11.3 fl (9.6-12.3); MONO # 0.4 10*3/uL (0.1-1.0); MONO % 11.1 % (3.0-9.0); NEUT # 2.3 10*3/uL (2.3-7.9); NEUT % 64.7 % (47.0-73.0); PLATELET COUNT AUTOMATED 124 10*3/uL (130-400); RED BLOOD COUNT 3.44 10*6/uL (4.50-5.90); RED CELL DISTRI WIDTH 18.9 % (0-14.5); WHITE BLOOD COUNT 3.5 10*3/uL (4.8-10.8)
[2020-02-28 06:28] LABS: BUN 30 mg/dl (7-24); CHLORIDE 111 mmol/L (98-107); CREATININE 0.92 mg/dL (0.70-1.30); POTASSIUM 3.6 mmol/L (3.5-5.1); SODIUM 144 mmol/L (136-145)
[2020-02-28 08:00] VITALS: BP 110/56
[2020-02-28 12:00] VITALS: BP 130/73
[2020-02-28 16:00] VITALS: BP 122/56; BP 123/68
[2020-02-28 20:00] VITALS: BP 142/68
[2020-02-29] VITALS: BP 136/70
[2020-02-29 06:27] LABS: BASO % 0.5 % (0.0-1.0); EOS # 0.1 10*3/uL (0.0-0.4); EOS % 2.4 % (1.0-4.0); HEMATOCRIT 30.5 % (42.0-52.0); LYMPH # 0.8 10*3/uL (1.3-4.4); LYMPH % 20.4 % (27.0-41.0); MEAN CELL VOLUME 90.5 fl (80.0-94.0); MEAN CORPUSCULAR HGB CONC 29.8 g/dl (33.0-37.0); MEAN PLATELET VOLUME 10.1 fl (9.6-12.3); MONO # 0.4 10*3/uL (0.1-1.0); MONO % 11.6 % (3.0-9.0); NEUT # 2.4 10*3/uL (2.3-7.9); NEUT % 64.3 % (47.0-73.0); PLATELET COUNT AUTOMATED 110 10*3/uL (130-400); RED BLOOD COUNT 3.37 10*6/uL (4.50-5.90); RED CELL DISTRI WIDTH 18.8 % (0-14.5); WHITE BLOOD COUNT 3.8 10*3/uL (4.8-10.8)
[2020-02-29 06:57] LABS: BUN 27 mg/dl (7-24); CHLORIDE 111 mmol/L (98-107); CREATININE 0.86 mg/dL (0.70-1.30); POTASSIUM 3.3 mmol/L (3.5-5.1); SODIUM 145 mmol/L (136-145)
[2020-02-29 08:00] VITALS: BP 128/72
[2020-02-29 12:00] VITALS: BP 128/68
[2020-02-29 16:00] VITALS: BP 133/67
[2020-02-29 20:00] VITALS: BP 129/68
[2020-03-01] VITALS: BP 123/62
[2020-03-01 04:00] VITALS: BP 112/60
[2020-03-01 07:18] LABS: BUN 33 mg/dl (7-24); CHLORIDE 110 mmol/L (98-107); CREATININE 1.05 mg/dL (0.70-1.30); POTASSIUM 3.8 mmol/L (3.5-5.1); SODIUM 144 mmol/L (136-145)
[2020-03-01 08:00] VITALS: BP 142/74
[2020-03-01 12:00] VITALS: BP 137/72
[2020-03-01 16:00] VITALS: BP 140/72
== END 2020-03-01 18:10 | disposition home health service (06) | DRG 291 ==
LOC: ED 16:10 → 5E 19:27 → EDHOLD 19:27 → 5E 20:12
PROVIDERS: Internal Medicine Nephrology; Nurse Practitioner; ADMIT Internal Medicine; ATTEND Internal Medicine
DX: I13.0 Hypertensive heart and chronic kidney disease with heart failure and stage 1 through stage 4 chronic kidney disease, or unspecified chronic kidney disease (principal); I50.33 Acute on chronic diastolic (congestive) heart failure; L03.116 Cellulitis of left lower limb; E66.2 Morbid (severe) obesity with alveolar hypoventilation; N18.4 Chronic kidney disease, stage 4 (severe); R18.8 Other ascites; F33.1 Major depressive disorder, recurrent, moderate; E87.0 Hyperosmolality and hypernatremia; I47.1 Supraventricular tachycardia; Z68.43 Body mass index [BMI] 50.0-59.9, adult; E11.42 Type 2 diabetes mellitus with diabetic polyneuropathy; E03.9 Hypothyroidism, unspecified; E87.6 Hypokalemia; M1A.9XX0 Chronic gout, unspecified, without tophus (tophi); R62.7 Adult failure to thrive; E11.22 Type 2 diabetes mellitus with diabetic chronic kidney disease; K74.60 Unspecified cirrhosis of liver; J43.2 Centrilobular emphysema; M47.896 Other spondylosis, lumbar region; G25.81 Restless legs syndrome; E87.8 Other disorders of electrolyte and fluid balance, not elsewhere classified; E11.622 Type 2 diabetes mellitus with other skin ulcer; L98.492 Non-pressure chronic ulcer of skin of other sites with fat layer exposed; R19.7 Diarrhea, unspecified; D64.9 Anemia, unspecified; M79.3 Panniculitis, unspecified; E87.5 Hyperkalemia; N40.1 Benign prostatic hyperplasia with lower urinary tract symptoms; R33.8 Other retention of urine; R26.2 Difficulty in walking, not elsewhere classified; Z82.49 Family history of ischemic heart disease and other diseases of the circulatory system; Z91.11 Patient's noncompliance with dietary regimen; Z83.3 Family history of diabetes mellitus; Z87.891 Personal history of nicotine dependence

== ENCOUNTER 2020-04-09 08:48 | Inpatient (IN) | payer MEDICARE ==
[2020-04-09] VITALS (14 sets, daily range): BP systolic 11–143; BP diastolic 43–83
[~2020-04-09] VITALS: Ht 182.8 cm; Wt 165.6 kg
[~2020-04-09 08:48] MED LIST changes: +NORVASC5 MG PO
[2020-04-09 09:24] LABS: HEMATOCRIT 38.9 % (42.0-52.0); MEAN CELL VOLUME 90.5 fl (80.0-94.0); MEAN CORPUSCULAR HGB CONC 29.8 g/dl (33.0-37.0); MEAN PLATELET VOLUME 11.3 fl (9.6-12.3); PLATELET COUNT AUTOMATED 90 10*3/uL (130-400); WHITE BLOOD COUNT 9.1 10*3/uL (4.8-10.8)
[2020-04-09 09:37] LABS: ACT PARTIAL THROMBO TIME 27.3 SECONDS (20.0-32.1); INTERNATIONAL NORM RATIO 1.2 (2.0-3.5)
[2020-04-09 09:40] LABS: ALBUMIN 2.2 gm/dl (3.1-4.5); ALKALINE PHOSPHATASE 362 U/L (45-117); BUN 54 mg/dl (7-24); CHLORIDE 110 mmol/L (98-107); CREATININE 1.32 mg/dL (0.70-1.30); LIPASE 36 U/L (73-393); SGOT/AST 65 IU/L (3-35); SGPT/ALT 61 U/L (12-78); SODIUM 144 mmol/L (136-145); TOTAL PROTEIN 6.6 gm/dL (6.4-8.2)
[2020-04-09 09:40] LABS: PLATELET SUFFICIENCY NORMAL (NORMAL); STOMATOCYTE FEW; TOTAL CELLS COUNTED 100 #CELLS
[2020-04-09 09:49] LABS: TROPONIN I 0.081 ng/ml (<0.045)
[2020-04-09 11:40] LABS: BILIRUBIN Negative (Negative); BLOOD Negative (Negative); CLARITY Clear (Clear); COLOR Yellow (Yellow); GLUCOSE Negative (Negative); KETONE Negative (Negative); LEUKO ESTERASE Negative (Negative); NITRITE Negative (Negative); SPECIFIC GRAVITY 1.015 (1.001-1.030); UROBILINOGEN 0.2 E.U./dl (0.0-1.0)
[2020-04-09 12:10] LABS: BACTERIA 1+
[2020-04-09] MEDS ORDERED: ALDACTONE25 M1 PO (21:11)
[2020-04-09] MEDS ORDERED: FEROSUL325 MG PO (21:12)
[2020-04-09] MEDS ORDERED: OYSTER SHELL 51 EACH PO (21:14)
[2020-04-09] MEDS ORDERED: VITAMIN C500 M4 PO (21:15)
[2020-04-09] MEDS ORDERED: ZINC-220220 MG PO (21:17)
[2020-04-09] MEDS ORDERED: ZANAFLEX4 M1 PO (21:19)
[2020-04-09] MEDS ORDERED: LIPITOR10 MG PO (21:21)
[2020-04-10] VITALS: BP 104/47
[2020-04-10 07:22] LABS: BUN 56 mg/dl (7-24); CHLORIDE 112 mmol/L (98-107); CREATININE 1.29 mg/dL (0.70-1.30); POTASSIUM 3.2 mmol/L (3.5-5.1); SODIUM 144 mmol/L (136-145)
[2020-04-10 08:00] VITALS: BP 92/51
[2020-04-10 09:24] VITALS: BP 102/60
[2020-04-10 12:00] VITALS: BP 98/50
[2020-04-10 16:00] VITALS: BP 105/55
[2020-04-10 20:00] VITALS: BP 104/56
[2020-04-11] VITALS: BP 123/67
[2020-04-11 06:58] LABS: BUN 56 mg/dl (7-24); CHLORIDE 110 mmol/L (98-107); CREATININE 1.37 mg/dL (0.70-1.30); POTASSIUM 3.3 mmol/L (3.5-5.1); SODIUM 143 mmol/L (136-145)
[2020-04-11 08:00] VITALS: BP 117/70
[2020-04-11 12:00] VITALS: BP 132/79
[2020-04-11 16:00] VITALS: BP 126/70
[2020-04-11 20:00] VITALS: BP 126/60
[2020-04-12] VITALS: BP 128/72
[2020-04-12 07:03] LABS: BUN 48 mg/dl (7-24); CHLORIDE 109 mmol/L (98-107); CREATININE 1.12 mg/dL (0.70-1.30); POTASSIUM 3.2 mmol/L (3.5-5.1); SODIUM 142 mmol/L (136-145)
[2020-04-12 08:00] VITALS: BP 130/71
[2020-04-12 12:00] VITALS: BP 124/62
[2020-04-12 16:00] VITALS: BP 140/68
[2020-04-12 20:00] VITALS: BP 135/70
[2020-04-13] VITALS: BP 138/73
[2020-04-13 06:48] LABS: CHLORIDE 114 mmol/L (98-107); CREATININE 1.01 mg/dL (0.70-1.30); POTASSIUM 3.3 mmol/L (3.5-5.1); SODIUM 145 mmol/L (136-145)
[2020-04-13 06:52] LABS: BUN 38 mg/dl (7-24)
[2020-04-13 08:00] VITALS: BP 124/76
[2020-04-13 12:00] VITALS: BP 117/72
[2020-04-13 16:00] VITALS: BP 123/74
[2020-04-13 20:00] VITALS: BP 128/72
[2020-04-14] VITALS: BP 134/66
[2020-04-14 06:28] LABS: BUN 33 mg/dl (7-24); CHLORIDE 112 mmol/L (98-107); CREATININE 0.95 mg/dL (0.70-1.30); SODIUM 146 mmol/L (136-145)
[2020-04-14 08:00] VITALS: BP 133/77
[2020-04-14 12:00] VITALS: BP 130/68
[2020-04-14 16:00] VITALS: BP 135/74
[2020-04-14 20:00] VITALS: BP 138/72
[2020-04-15] VITALS: BP 156/73
[2020-04-15 07:58] LABS: BUN 28 mg/dl (7-24); CHLORIDE 114 mmol/L (98-107); CREATININE 0.91 mg/dL (0.70-1.30); SODIUM 145 mmol/L (136-145)
[2020-04-15 08:00] VITALS: BP 132/67
[2020-04-15] MEDS ORDERED: XERAVA IV (09:35)
[2020-04-15 12:00] VITALS: BP 128/65
[2020-04-15 14:09] LABS: ORGANISM ID Final report (.)
[2020-04-15 16:00] VITALS: BP 152/73
[2020-04-15 18:00] VITALS: BP 152/73
[2020-04-15 20:00] VITALS: BP 137/77
[2020-04-16] VITALS: BP 138/68
[2020-04-16 08:00] VITALS: BP 149/69
[2020-04-16 08:01] LABS: BUN 24 mg/dl (7-24); CHLORIDE 113 mmol/L (98-107); CREATININE 0.96 mg/dL (0.70-1.30); POTASSIUM 3.1 mmol/L (3.5-5.1); SODIUM 144 mmol/L (136-145)
[2020-04-16] MEDS ORDERED: VANCOMYCIN HCL250 MG PO (09:18)
[2020-04-16] MEDS ORDERED: XERAVA IV ×2 (09:26)
[2020-04-16 12:00] VITALS: BP 148/59
[2020-04-16 16:00] VITALS: BP 160/80
== END 2020-04-16 17:33 | disposition home or self-care (01) | DRG 871 ==
LOC: ED 08:48 → EDHOLD 10:16 → 5E 10:16
PROVIDERS: Emergency Medicine; Family Medicine; ADMIT Internal Medicine; ATTEND Internal Medicine
PROC: 02HV33Z Insertion of Infusion Device into Superior Vena Cava, Percutaneous Approach (ICD-10-PCS; principal; 2020-04-16)
DX: A41.89 Other specified sepsis (principal); E43 Unspecified severe protein-calorie malnutrition; A04.72 Enterocolitis due to Clostridium difficile, not specified as recurrent; I47.2 Ventricular tachycardia; L03.311 Cellulitis of abdominal wall; I50.32 Chronic diastolic (congestive) heart failure; E66.2 Morbid (severe) obesity with alveolar hypoventilation; N17.9 Acute kidney failure, unspecified; Z68.43 Body mass index [BMI] 50.0-59.9, adult; R65.20 Severe sepsis without septic shock; K21.9 Gastro-esophageal reflux disease without esophagitis; M1A.9XX0 Chronic gout, unspecified, without tophus (tophi); E03.9 Hypothyroidism, unspecified; I11.0 Hypertensive heart disease with heart failure; R62.7 Adult failure to thrive; G25.81 Restless legs syndrome; M47.816 Spondylosis without myelopathy or radiculopathy, lumbar region; E78.5 Hyperlipidemia, unspecified; E87.6 Hypokalemia; M79.3 Panniculitis, unspecified; I45.81 Long QT syndrome; B96.89 Other specified bacterial agents as the cause of diseases classified elsewhere; M19.90 Unspecified osteoarthritis, unspecified site; E11.9 Type 2 diabetes mellitus without complications; I95.9 Hypotension, unspecified; K74.60 Unspecified cirrhosis of liver; N40.1 Benign prostatic hyperplasia with lower urinary tract symptoms; R33.8 Other retention of urine; K21.00 Gastro-esophageal reflux disease with esophagitis, without bleeding; Z79.4 Long term (current) use of insulin; Z91.11 Patient's noncompliance with dietary regimen; Z83.3 Family history of diabetes mellitus; Z79.899 Other long term (current) drug therapy; Z91.19 Patient's noncompliance with other medical treatment and regimen; Z87.891 Personal history of nicotine dependence; Z82.49 Family history of ischemic heart disease and other diseases of the circulatory system

== ENCOUNTER 2020-04-27 13:50 | Inpatient (IN) | payer MEDICARE ==
[2020-04-27] VITALS (7 sets, daily range): BP systolic 90–111; BP diastolic 48–62
[~2020-04-27] VITALS: Wt 172.9 kg
[~2020-04-27 13:50] MED LIST changes: +ALDACTONE25 M1 PO; +FEROSUL325 MG PO; +OYSTER SHELL 51 EACH PO; +VANCOMYCIN HCL250 MG PO; +VITAMIN C500 M4 PO; +XERAVA IV; +ZANAFLEX4 M1 PO; +ZINC-220220 MG PO
[2020-04-27 14:28] LABS: BASO % 0.9 % (0.0-1.0); EOS # 0.1 10*3/uL (0.0-0.4); EOS % 1.5 % (1.0-4.0); HEMATOCRIT 41.5 % (42.0-52.0); LYMPH # 0.6 10*3/uL (1.3-4.4); LYMPH % 18.5 % (27.0-41.0); MEAN CORPUSCULAR HGB 27.1 pg (27.0-31.0); MEAN CORPUSCULAR HGB CONC 29.4 g/dl (33.0-37.0); MONO # 0.4 10*3/uL (0.1-1.0); MONO % 11.1 % (3.0-9.0); NEUT # 2.2 10*3/uL (2.3-7.9); NEUT % 67.4 % (47.0-73.0); PLATELET COUNT AUTOMATED 74 10*3/uL (130-400); RED BLOOD COUNT 4.51 10*6/uL (4.50-5.90); RED CELL DISTRI WIDTH 18.2 % (0-14.5); WHITE BLOOD COUNT 3.3 10*3/uL (4.8-10.8)
[2020-04-27 14:42] LABS: ACT PARTIAL THROMBO TIME 38.7 SECONDS (20.0-32.1); INTERNATIONAL NORM RATIO 1.5 (2.0-3.5)
[2020-04-27 14:44] LABS: ALBUMIN 1.9 gm/dl (3.1-4.5); ALKALINE PHOSPHATASE 495 U/L (45-117); BUN 45 mg/dl (7-24); CHLORIDE 117 mmol/L (98-107); CREATININE 1.28 mg/dL (0.70-1.30); LIPASE 119 U/L (73-393); POTASSIUM 3.1 mmol/L (3.5-5.1); SGOT/AST 83 IU/L (3-35); SGPT/ALT 59 U/L (12-78); SODIUM 148 mmol/L (136-145); TOTAL PROTEIN 5.9 gm/dL (6.4-8.2)
[2020-04-27 14:45] LABS: TROPONIN I < 0.015 ng/ml (<0.045)
[2020-04-27 15:33] LABS: BILIRUBIN Negative (Negative); BLOOD Negative (Negative); CLARITY Clear (Clear); COLOR Yellow (Yellow); GLUCOSE Negative (Negative); KETONE Negative (Negative); LEUKO ESTERASE Negative (Negative); NITRITE Negative (Negative); UROBILINOGEN 0.2 E.U./dl (0.0-1.0)
[2020-04-27 15:40] LABS: BACTERIA 1+; HYALINE CAST TNTC; RBC 0-2 rbc/hpf (0-2)
[2020-04-28 00:30] LABS: BUN 40 mg/dl (7-24); CHLORIDE 118 mmol/L (98-107); CREATININE 1.01 mg/dL (0.70-1.30); POTASSIUM 3.4 mmol/L (3.5-5.1); SODIUM 147 mmol/L (136-145)
[2020-04-28 01:50] VITALS: BP 90/61
[2020-04-28 04:44] LABS: BUN 42 mg/dl (7-24); CHLORIDE 118 mmol/L (98-107); CREATININE 1.09 mg/dL (0.70-1.30); POTASSIUM 3.2 mmol/L (3.5-5.1); SODIUM 148 mmol/L (136-145)
[2020-04-28 05:00] VITALS: BP 90/61
[2020-04-28 07:17] VITALS: BP 91/47
[2020-04-28] MEDS ORDERED: PERCOCET 10-321 EACH PO (17:14)
[2020-04-28] MEDS ORDERED: WELLBUTRIN SR150 MG PO (17:22)
[2020-04-28] MEDS ORDERED: POTASSIUM CHLO20 ME3 PO (17:23)
[2020-04-28 17:45] VITALS: BP 122/60
[2020-04-28 20:12] VITALS: BP 112/55
[2020-04-29] VITALS: BP 107/61; BP 122/68
[2020-04-29 06:48] LABS: BASO % 0.6 % (0.0-1.0); EOS % 1.2 % (1.0-4.0); HEMATOCRIT 39.6 % (42.0-52.0); LYMPH # 0.6 10*3/uL (1.3-4.4); LYMPH % 19.6 % (27.0-41.0); MEAN CELL VOLUME 91.9 fl (80.0-94.0); MEAN CORPUSCULAR HGB 27.1 pg (27.0-31.0); MEAN CORPUSCULAR HGB CONC 29.5 g/dl (33.0-37.0); MEAN PLATELET VOLUME 12.6 fl (9.6-12.3); MONO # 0.4 10*3/uL (0.1-1.0); NEUT # 2.2 10*3/uL (2.3-7.9); NEUT % 66.7 % (47.0-73.0); RED BLOOD COUNT 4.31 10*6/uL (4.50-5.90); RED CELL DISTRI WIDTH 18.6 % (0-14.5); WHITE BLOOD COUNT 3.3 10*3/uL (4.8-10.8)
[2020-04-29 06:50] LABS: PLATELET COUNT AUTOMATED 51 10*3/uL (130-400)
[2020-04-29 07:34] LABS: BUN 36 mg/dl (7-24); CHLORIDE 117 mmol/L (98-107); POTASSIUM 3.7 mmol/L (3.5-5.1); SODIUM 146 mmol/L (136-145)
[2020-04-29 07:36] LABS: CREATININE 0.96 mg/dL (0.70-1.30)
[2020-04-29 08:00] VITALS: BP 128/71
[2020-04-29 12:00] VITALS: BP 130/66
[2020-04-29 16:00] VITALS: BP 138/63
[2020-04-29 20:00] VITALS: BP 105/54
[2020-04-30] VITALS: BP 114/56
[2020-04-30 06:29] LABS: BASO % 0.6 % (0.0-1.0); EOS # 0.1 10*3/uL (0.0-0.4); EOS % 1.7 % (1.0-4.0); HEMATOCRIT 40.8 % (42.0-52.0); LYMPH # 0.9 10*3/uL (1.3-4.4); LYMPH % 19.9 % (27.0-41.0); MEAN CELL VOLUME 91.5 fl (80.0-94.0); MEAN CORPUSCULAR HGB 27.6 pg (27.0-31.0); MEAN CORPUSCULAR HGB CONC 30.1 g/dl (33.0-37.0); MONO # 0.5 10*3/uL (0.1-1.0); MONO % 11.4 % (3.0-9.0); NEUT % 65.8 % (47.0-73.0); PLATELET COUNT AUTOMATED 53 10*3/uL (130-400); RED BLOOD COUNT 4.46 10*6/uL (4.50-5.90); RED CELL DISTRI WIDTH 19.1 % (0-14.5); WHITE BLOOD COUNT 4.6 10*3/uL (4.8-10.8)
[2020-04-30 06:53] LABS: BUN 29 mg/dl (7-24); CHLORIDE 119 mmol/L (98-107); CREATININE 0.86 mg/dL (0.70-1.30); POTASSIUM 3.7 mmol/L (3.5-5.1); SODIUM 147 mmol/L (136-145)
[2020-04-30 08:00] VITALS: BP 116/67
[2020-04-30 12:00] VITALS: BP 119/51
[2020-04-30 16:00] VITALS: BP 106/67
[2020-04-30 20:00] VITALS: BP 134/67
[2020-05-01] VITALS: BP 127/54
[2020-05-01 06:35] LABS: HEMATOCRIT 37.5 % (42.0-52.0); MEAN CELL VOLUME 91.5 fl (80.0-94.0); MEAN CORPUSCULAR HGB 27.1 pg (27.0-31.0); MEAN CORPUSCULAR HGB CONC 29.6 g/dl (33.0-37.0); PLATELET COUNT AUTOMATED 42 10*3/uL (130-400); WHITE BLOOD COUNT 3.9 10*3/uL (4.8-10.8)
[2020-05-01 06:43] LABS: BUN 26 mg/dl (7-24); CHLORIDE 118 mmol/L (98-107); CREATININE 0.98 mg/dL (0.70-1.30); POTASSIUM 3.6 mmol/L (3.5-5.1); SODIUM 146 mmol/L (136-145)
[2020-05-01 07:49] LABS: TOTAL CELLS COUNTED 100 #CELLS
[2020-05-01 07:50] LABS: OVALOCYTES FEW; PLATELET SUFFICIENCY LOW (NORMAL); TARGET CELLS FEW
[2020-05-01 08:00] VITALS: BP 135/71
[2020-05-01 12:00] VITALS: BP 138/61
== END 2020-05-01 18:11 | disposition home health service (06) | DRG 637 ==
LOC: ED 13:50 → 5E 17:17 → EDHOLD 17:17 → 5E 04-28 15:29
PROVIDERS: Emergency Medicine; ADMIT Internal Medicine; ATTEND Internal Medicine
PROC: 02HV33Z Insertion of Infusion Device into Superior Vena Cava, Percutaneous Approach (ICD-10-PCS; principal; 2020-04-27)
DX: E11.649 Type 2 diabetes mellitus with hypoglycemia without coma (principal); G93.41 Metabolic encephalopathy; E43 Unspecified severe protein-calorie malnutrition; I50.32 Chronic diastolic (congestive) heart failure; F33.9 Major depressive disorder, recurrent, unspecified; L03.311 Cellulitis of abdominal wall; A04.72 Enterocolitis due to Clostridium difficile, not specified as recurrent; R18.8 Other ascites; J96.10 Chronic respiratory failure, unspecified whether with hypoxia or hypercapnia; Z68.43 Body mass index [BMI] 50.0-59.9, adult; R62.7 Adult failure to thrive; K74.60 Unspecified cirrhosis of liver; E87.6 Hypokalemia; E86.0 Dehydration; R33.8 Other retention of urine; N40.1 Benign prostatic hyperplasia with lower urinary tract symptoms; E66.01 Morbid (severe) obesity due to excess calories; E03.9 Hypothyroidism, unspecified; I10 Essential (primary) hypertension; M1A.9XX0 Chronic gout, unspecified, without tophus (tophi); G25.81 Restless legs syndrome; G47.33 Obstructive sleep apnea (adult) (pediatric); K21.00 Gastro-esophageal reflux disease with esophagitis, without bleeding; S31.103A Unspecified open wound of abdominal wall, right lower quadrant without penetration into peritoneal cavity, initial encounter; J44.9 Chronic obstructive pulmonary disease, unspecified; M54.5 Low back pain; M19.90 Unspecified osteoarthritis, unspecified site; Z87.891 Personal history of nicotine dependence; Z80.6 Family history of leukemia; Z82.49 Family history of ischemic heart disease and other diseases of the circulatory system; Z83.3 Family history of diabetes mellitus; X58.XXXA Exposure to other specified factors, initial encounter; Y93.89 Activity, other specified; Y92.89 Other specified places as the place of occurrence of the external cause; Y99.8 Other external cause status

== ENCOUNTER 2020-05-02 12:17 | Emergency (ER) | payer MEDICARE ==
[~2020-05-02 12:17] MED LIST changes: +POTASSIUM CHLO20 ME3 PO; +WELLBUTRIN SR150 MG PO
[2020-05-02 15:01] LABS: BASO % 0.7 % (0.0-1.0); EOS # 0.1 10*3/uL (0.0-0.4); EOS % 2.4 % (1.0-4.0); LYMPH # 0.8 10*3/uL (1.3-4.4); LYMPH % 18.3 % (27.0-41.0); MEAN CELL VOLUME 91.9 fl (80.0-94.0); MEAN CORPUSCULAR HGB 27.6 pg (27.0-31.0); MONO # 0.5 10*3/uL (0.1-1.0); MONO % 11.7 % (3.0-9.0); NEUT % 65.8 % (47.0-73.0); PLATELET COUNT AUTOMATED 54 10*3/uL (130-400); RED BLOOD COUNT 4.57 10*6/uL (4.50-5.90); RED CELL DISTRI WIDTH 18.9 % (0-14.5); WHITE BLOOD COUNT 4.5 10*3/uL (4.8-10.8)
[2020-05-02 15:10] LABS: BUN 18 mg/dl (7-24); CHLORIDE 117 mmol/L (98-107); CREATININE 0.92 mg/dL (0.70-1.30); INTERNATIONAL NORM RATIO 1.2 (2.0-3.5); POTASSIUM 3.4 mmol/L (3.5-5.1); SODIUM 146 mmol/L (136-145)
== END 2020-05-02 22:20 | disposition short-term general hospital (02) ==
LOC: ED 12:17
PROVIDERS: Emergency Medicine
DX: S42.412A Displaced simple supracondylar fracture without intercondylar fracture of left humerus, initial encounter for closed fracture (principal); E66.01 Morbid (severe) obesity due to excess calories; J44.9 Chronic obstructive pulmonary disease, unspecified; E78.5 Hyperlipidemia, unspecified; E03.9 Hypothyroidism, unspecified; I11.0 Hypertensive heart disease with heart failure; I50.9 Heart failure, unspecified; E11.9 Type 2 diabetes mellitus without complications; Z79.899 Other long term (current) drug therapy; Z79.4 Long term (current) use of insulin; W19.XXXA Unspecified fall, initial encounter; Y93.89 Activity, other specified; Y92.89 Other specified places as the place of occurrence of the external cause; Y99.8 Other external cause status

== ENCOUNTER 2020-05-12 16:24 | Inpatient (IN) | payer MEDICARE ==
[~2020-05-12] VITALS: Ht 182.8 cm; Wt 168.3 kg
[2020-05-12 16:26] VITALS: BP 138/72
[2020-05-12 16:56] LABS: BASO % 0.7 % (0.0-1.0); EOS # 0.2 10*3/uL (0.0-0.4); EOS % 2.5 % (1.0-4.0); HEMATOCRIT 36.8 % (42.0-52.0); LYMPH # 0.8 10*3/uL (1.3-4.4); MEAN CELL VOLUME 96.8 fl (80.0-94.0); MEAN CORPUSCULAR HGB 28.2 pg (27.0-31.0); MEAN CORPUSCULAR HGB CONC 29.1 g/dl (33.0-37.0); MEAN PLATELET VOLUME 10.1 fl (9.6-12.3); MONO # 0.4 10*3/uL (0.1-1.0); MONO % 6.3 % (3.0-9.0); NEUT # 4.5 10*3/uL (2.3-7.9); NEUT % 75.3 % (47.0-73.0); PLATELET COUNT AUTOMATED 110 10*3/uL (130-400); RED CELL DISTRI WIDTH 20.4 % (0-14.5)
[2020-05-12 17:09] LABS: ACT PARTIAL THROMBO TIME 25.1 SECONDS (20.0-32.1)
[2020-05-12 17:17] LABS: ALBUMIN 1.5 gm/dl (3.1-4.5); ALKALINE PHOSPHATASE 654 U/L (45-117); BUN 15 mg/dl (7-24); CHLORIDE 120 mmol/L (98-107); CREATININE 0.88 mg/dL (0.70-1.30); POTASSIUM 4.4 mmol/L (3.5-5.1); SGOT/AST 86 IU/L (3-35); SGPT/ALT 56 U/L (12-78); SODIUM 148 mmol/L (136-145); TOTAL PROTEIN 5.6 gm/dL (6.4-8.2)
[2020-05-12 17:18] LABS: TROPONIN I < 0.015 ng/ml (<0.045)
[2020-05-12 20:32] LABS: BILIRUBIN Negative (Negative); BLOOD Trace-Intact (Negative); CLARITY Clear (Clear); COLOR Yellow (Yellow); GLUCOSE Negative (Negative); KETONE Negative (Negative); LEUKO ESTERASE 1+ (Negative); NITRITE Negative (Negative); SPECIFIC GRAVITY <= 1.005 (1.001-1.030); UROBILINOGEN 0.2 E.U./dl (0.0-1.0)
[2020-05-12 20:50] LABS: BACTERIA 1+
[2020-05-12 23:35] VITALS: BP 120/72
[2020-05-12] MEDS ORDERED: CITALOPRAM HYDR10 MG PO (23:51)
[2020-05-12] MEDS ORDERED: CARVEDILOL3.125 MG PO (23:51)
[2020-05-12] MEDS ORDERED: METFORMIN HYD1000 MG PO (23:53)
[2020-05-12] MEDS ORDERED: MONTELUKAST SOD10 MG PO (23:54)
[2020-05-12] MEDS ORDERED: PANTOPRAZOLE SO40 MG PO (23:55)
[2020-05-13] MEDS ORDERED: ALLOPURINOL100 MG PO
[2020-05-13] MEDS ORDERED: INSULIN LI100 UNIT/2 SC (00:03)
[2020-05-13 08:00] VITALS: BP 146/73
[2020-05-13 12:00] VITALS: BP 111/52
[2020-05-13 16:00] VITALS: BP 113/65
[2020-05-13 20:01] VITALS: BP 123/61
[2020-05-14] VITALS: BP 112/61
[2020-05-14 08:00] VITALS: BP 127/67
[2020-05-14 12:00] VITALS: BP 127/70
[2020-05-14 16:00] VITALS: BP 118/58
[2020-05-14 20:00] VITALS: BP 124/63
[2020-05-15] VITALS: BP 124/65
[2020-05-15 08:00] VITALS: BP 126/63
[2020-05-15 12:00] VITALS: BP 125/64
[2020-05-15 16:00] VITALS: BP 157/87
[2020-05-15 20:00] VITALS: BP 122/60
[2020-05-16] VITALS: BP 113/60
[2020-05-16 08:00] VITALS: BP 108/60
[2020-05-16 08:41] LABS: BUN 22 mg/dl (7-24); CHLORIDE 121 mmol/L (98-107); CREATININE 0.83 mg/dL (0.70-1.30); POTASSIUM 4.3 mmol/L (3.5-5.1); SODIUM 154 mmol/L (136-145)
[2020-05-16 12:00] VITALS: BP 110/68
[2020-05-16] MEDS ORDERED: PERCOCET 10-321 EACH PO (12:55)
[2020-05-16 16:00] VITALS: BP 102/67
== END 2020-05-16 20:08 | DRG 291 ==
LOC: ED 16:24 → EDHOLD 20:00 → 5E 20:00
PROVIDERS: Family Medicine; Physician Assistant; ADMIT Internal Medicine; ATTEND Internal Medicine
DX: I11.0 Hypertensive heart disease with heart failure (principal); E43 Unspecified severe protein-calorie malnutrition; S42.413A Displaced simple supracondylar fracture without intercondylar fracture of unspecified humerus, initial encounter for closed fracture; F33.9 Major depressive disorder, recurrent, unspecified; E87.0 Hyperosmolality and hypernatremia; Z68.43 Body mass index [BMI] 50.0-59.9, adult; R62.7 Adult failure to thrive; E66.01 Morbid (severe) obesity due to excess calories; K74.60 Unspecified cirrhosis of liver; E78.2 Mixed hyperlipidemia; N40.1 Benign prostatic hyperplasia with lower urinary tract symptoms; R33.8 Other retention of urine; E03.9 Hypothyroidism, unspecified; G25.81 Restless legs syndrome; M1A.9XX0 Chronic gout, unspecified, without tophus (tophi); S31.109A Unspecified open wound of abdominal wall, unspecified quadrant without penetration into peritoneal cavity, initial encounter; G47.33 Obstructive sleep apnea (adult) (pediatric); S90.122A Contusion of left lesser toe(s) without damage to nail, initial encounter; E87.8 Other disorders of electrolyte and fluid balance, not elsewhere classified; E11.65 Type 2 diabetes mellitus with hyperglycemia; Z20.822 Contact with and (suspected) exposure to COVID-19; Z87.891 Personal history of nicotine dependence; Z82.49 Family history of ischemic heart disease and other diseases of the circulatory system; Z80.6 Family history of leukemia; Z83.3 Family history of diabetes mellitus; Z83.49 Family history of other endocrine, nutritional and metabolic diseases; Z78.9 Other specified health status; X58.XXXA Exposure to other specified factors, initial encounter; Y93.89 Activity, other specified; Y92.89 Other specified places as the place of occurrence of the external cause; Y99.8 Other external cause status; I50.33 Acute on chronic diastolic (congestive) heart failure

== ENCOUNTER 2020-11-29 11:23 | Inpatient (IN) | payer MEDICARE ==
[~2020-11-29] VITALS: Ht 182.8 cm; Wt 168.5 kg
[~2020-11-29 11:23] MED LIST changes: +CARVEDILOL3.125 MG PO; +CITALOPRAM HYDR10 MG PO; +DOXYCYCLINE MO100 M1 PO; +INSULIN LI100 UNIT/2 SC; +METFORMIN HYD1000 MG PO; +MONTELUKAST SOD10 MG PO; +PANTOPRAZOLE SO40 MG PO; +QUESTRAN LIGHT4 GM PO
[2020-11-29 12:05] LABS: BASO % 0.8 % (0.0-1.0); EOS # 0.1 10*3/uL (0.0-0.4); EOS % 3.3 % (1.0-4.0); HEMATOCRIT 35.3 % (42.0-52.0); LYMPH # 0.7 10*3/uL (1.3-4.4); LYMPH % 16.4 % (27.0-41.0); MEAN CELL VOLUME 95.7 fl (80.0-94.0); MEAN CORPUSCULAR HGB 28.2 pg (27.0-31.0); MEAN CORPUSCULAR HGB CONC 29.5 g/dl (33.0-37.0); MEAN PLATELET VOLUME 10.9 fl (9.6-12.3); MONO # 0.3 10*3/uL (0.1-1.0); MONO % 7.3 % (3.0-9.0); NEUT # 2.8 10*3/uL (2.3-7.9); NEUT % 71.4 % (47.0-73.0); RED BLOOD COUNT 3.69 10*6/uL (4.50-5.90); RED CELL DISTRI WIDTH 16.3 % (0-14.5)
[2020-11-29 12:09] LABS: PLATELET COUNT AUTOMATED 113 10*3/uL (130-400)
[2020-11-29 12:21] LABS: ALBUMIN 1.6 gm/dl (3.1-4.5); CREATININE 1.67 mg/dL (0.70-1.30); TOTAL PROTEIN 6.7 gm/dL (6.4-8.2)
[2020-11-29 13:18] VITALS: BP 120/59
[2020-11-29 13:55] VITALS: BP 106/67
[2020-11-29 14:00] VITALS: BP 141/87
[2020-11-29] MEDS ORDERED: PERCOCET 10-321 EACH PO (15:52)
[2020-11-29] MEDS ORDERED: LANTUS SOL100 UNIT/1 SC (15:56)
[2020-11-29] MEDS ORDERED: Duragesic 50 M50 MCG TD (15:57)
[2020-11-29 16:00] VITALS: BP 152/76
[2020-11-30] VITALS: BP 111/63
[2020-11-30 08:00] VITALS: BP 143/71
[2020-11-30 16:00] VITALS: BP 139/54
[2020-11-30 20:00] VITALS: BP 146/63
[2020-12-01] VITALS: BP 128/59; BP 129/57
[2020-12-01 08:00] VITALS: BP 117/58
[2020-12-01 16:00] VITALS: BP 124/58
[2020-12-01 20:00] VITALS: BP 133/76
[2020-12-02] VITALS: BP 148/70
[2020-12-02 08:00] VITALS: BP 124/71
[2020-12-02 08:04] LABS: BASO % 0.6 % (0.0-1.0); BUN 35 mg/dl (7-24); CHLORIDE 112 mmol/L (98-107); CREATININE 1.13 mg/dL (0.70-1.30); EOS # 0.1 10*3/uL (0.0-0.4); HEMATOCRIT 36.2 % (42.0-52.0); LYMPH # 0.9 10*3/uL (1.3-4.4); LYMPH % 19.9 % (27.0-41.0); MEAN CELL VOLUME 96.3 fl (80.0-94.0); MEAN CORPUSCULAR HGB 27.9 pg (27.0-31.0); MONO # 0.3 10*3/uL (0.1-1.0); MONO % 7.3 % (3.0-9.0); NEUT # 3.2 10*3/uL (2.3-7.9); NEUT % 68.6 % (47.0-73.0); PLATELET COUNT AUTOMATED 109 10*3/uL (130-400); POTASSIUM 4.1 mmol/L (3.5-5.1); RED BLOOD COUNT 3.76 10*6/uL (4.50-5.90); RED CELL DISTRI WIDTH 16.1 % (0-14.5); SODIUM 147 mmol/L (136-145); WHITE BLOOD COUNT 4.6 10*3/uL (4.8-10.8)
[2020-12-02 12:00] VITALS: BP 127/69
[2020-12-02 16:00] VITALS: BP 116/56
[2020-12-02 19:54] VITALS: BP 159/65
[2020-12-02 23:00] VITALS: BP 133/59
[2020-12-03 08:00] VITALS: BP 127/61
[2020-12-03 12:00] VITALS: BP 123/74
[2020-12-03 16:00] VITALS: BP 111/87
[2020-12-03 20:00] VITALS: BP 125/70
[2020-12-04] VITALS: BP 145/70
[2020-12-04 08:00] VITALS: BP 129/77
[2020-12-04 08:52] LABS: ABG BASE EXCESS 11.1 mmol/L (-2.0-2.0); ARTERIAL BLOOD GAS PH 7.498 (7.35-7.45); ARTERIAL BLOOD GAS PO2 70.4 (80-90)
[2020-12-04 12:00] VITALS: BP 144/83
[2020-12-04 16:00] VITALS: BP 125/68
[2020-12-04 20:00] VITALS: BP 116/62
[2020-12-05 08:00] VITALS: BP 112/55
[2020-12-05 16:00] VITALS: BP 133/68
== END 2020-12-05 16:51 | DRG 729 ==
LOC: ED 11:23 → 5E 12:41 → EDHOLD 12:41 → 5E 13:31
PROVIDERS: Emergency Medicine; ADMIT Internal Medicine; ATTEND Internal Medicine
DX: S31.30XA Unspecified open wound of scrotum and testes, initial encounter (principal); E43 Unspecified severe protein-calorie malnutrition; N39.0 Urinary tract infection, site not specified; E66.2 Morbid (severe) obesity with alveolar hypoventilation; I50.32 Chronic diastolic (congestive) heart failure; N17.9 Acute kidney failure, unspecified; Z68.43 Body mass index [BMI] 50.0-59.9, adult; E87.3 Alkalosis; Z66 Do not resuscitate; Z20.822 Contact with and (suspected) exposure to COVID-19; Z51.5 Encounter for palliative care; R62.7 Adult failure to thrive; B96.20 Unspecified Escherichia coli [E. coli] as the cause of diseases classified elsewhere; L89.212 Pressure ulcer of right hip, stage 2; E11.9 Type 2 diabetes mellitus without complications; G89.4 Chronic pain syndrome; E03.9 Hypothyroidism, unspecified; G25.81 Restless legs syndrome; G47.10 Hypersomnia, unspecified; S30.92XA Unspecified superficial injury of abdominal wall, initial encounter; S70.911A Unspecified superficial injury of right hip, initial encounter; X58.XXXA Exposure to other specified factors, initial encounter; Y93.89 Activity, other specified; Y92.89 Other specified places as the place of occurrence of the external cause; Z71.3 Dietary counseling and surveillance; Y99.8 Other external cause status; Z83.3 Family history of diabetes mellitus; Z82.49 Family history of ischemic heart disease and other diseases of the circulatory system; Z91.11 Patient's noncompliance with dietary regimen; R09.02 Hypoxemia; R06.89 Other abnormalities of breathing; N18.30 Chronic kidney disease, stage 3 unspecified

== ENCOUNTER 2021-02-03 17:52 | Emergency (ER) | payer MEDICARE ==
[~2021-02-03 17:52] MED LIST changes: +Duragesic 50 M50 MCG TD
[2021-02-03 18:13] LABS: BILIRUBIN Negative (Negative); BLOOD 3+ (Negative); CLARITY Cloudy (Clear); COLOR Yellow (Yellow); GLUCOSE Negative (Negative); KETONE Negative (Negative); LEUKO ESTERASE 3+ (Negative); NITRITE Positive (Negative); PH 5.5 (4.5-8.0); UROBILINOGEN 0.2 E.U./dl (0.0-1.0)
[2021-02-03 18:20] LABS: BACTERIA 4+; RBC 51-100 rbc/hpf (0-2); WBC 51-100 wbc/hpf (0-5)
[2021-02-03 18:21] LABS: EPITHELIAL CELLS 0-2
[2021-02-03 19:41] LABS: BASO % 0.8 % (0.0-1.0); EOS # 0.1 10*3/uL (0.0-0.4); EOS % 2.7 % (1.0-4.0); HEMATOCRIT 33.8 % (42.0-52.0); LYMPH # 0.7 10*3/uL (1.3-4.4); LYMPH % 14.1 % (27.0-41.0); MEAN CELL VOLUME 97.7 fl (80.0-94.0); MEAN CORPUSCULAR HGB 29.8 pg (27.0-31.0); MEAN CORPUSCULAR HGB CONC 30.5 g/dl (33.0-37.0); MONO # 0.4 10*3/uL (0.1-1.0); MONO % 7.5 % (3.0-9.0); NEUT # 3.8 10*3/uL (2.3-7.9); NEUT % 72.2 % (47.0-73.0); PLATELET COUNT AUTOMATED 82 10*3/uL (130-400); RED BLOOD COUNT 3.46 10*6/uL (4.50-5.90); RED CELL DISTRI WIDTH 21.2 % (0-14.5); WHITE BLOOD COUNT 5.2 10*3/uL (4.8-10.8)
[2021-02-03 19:57] LABS: ALBUMIN 1.9 gm/dl (3.1-4.5); ALKALINE PHOSPHATASE 392 U/L (45-117); BUN 19 mg/dl (7-24); CHLORIDE 118 mmol/L (98-107); CREATININE 0.94 mg/dL (0.70-1.30); POTASSIUM 3.8 mmol/L (3.5-5.1); SGOT/AST 51 IU/L (3-35); SGPT/ALT 65 U/L (12-78); SODIUM 149 mmol/L (136-145)
[2021-02-04 07:17] LABS: TOTAL PROTEIN 5.7 gm/dL (6.4-8.2)
== END 2021-02-04 00:06 | disposition short-term general hospital (02) ==
LOC: ED 17:52
PROVIDERS: Emergency Medicine; Internal Medicine
DX: T83.518A Infection and inflammatory reaction due to other urinary catheter, initial encounter (principal); Z20.822 Contact with and (suspected) exposure to COVID-19; N39.0 Urinary tract infection, site not specified; E87.0 Hyperosmolality and hypernatremia; D53.9 Nutritional anemia, unspecified; R74.8 Abnormal levels of other serum enzymes; Z79.4 Long term (current) use of insulin; Z79.899 Other long term (current) drug therapy; Z90.89 Acquired absence of other organs; Z87.891 Personal history of nicotine dependence; Y84.8 Other medical procedures as the cause of abnormal reaction of the patient, or of later complication, without mention of misadventure at the time of the procedure; Y92.89 Other specified places as the place of occurrence of the external cause

== ENCOUNTER 2021-04-25 13:03 | Inpatient (IN) | payer OTHER, MEDICARE ==
[~2021-04-25] VITALS: Ht 180.3 cm; Wt 168.3 kg
[~2021-04-25 13:03] MED LIST changes: +ASMANEX HFA13 G1 INH; +BASAG SOL SC; +FLEET ENEMA 13133 ML R; +GENTLE LAXATIVE10 MG R; +MILK OF MA400 MG/5 M PO; +NOVOLOG FL100 UNIT/2 SQ; +PREMIERPRO RX ME1 GM IV
[2021-04-25 16:00] VITALS: BP 138/64
[2021-04-25 20:00] VITALS: BP 94/50
[2021-04-26 04:00] VITALS: BP 60/40
== END 2021-04-26 08:20 | DRG 871 ==
LOC: 4E 13:03
PROVIDERS: ADMIT Internal Medicine; ATTEND Internal Medicine
PROC: 5A0935A Assistance with Respiratory Ventilation, Less than 24 Consecutive Hours, High Flow/Velocity Cannula (ICD-10-PCS; principal; 2021-04-25)
DX: A41.9 Sepsis, unspecified organism (principal); U07.1 COVID-19; J96.01 Acute respiratory failure with hypoxia; J44.0 Chronic obstructive pulmonary disease with (acute) lower respiratory infection; I50.42 Chronic combined systolic (congestive) and diastolic (congestive) heart failure; D61.818 Other pancytopenia; Z68.43 Body mass index [BMI] 50.0-59.9, adult; N28.1 Cyst of kidney, acquired; L98.492 Non-pressure chronic ulcer of skin of other sites with fat layer exposed; E66.01 Morbid (severe) obesity due to excess calories; R62.7 Adult failure to thrive; I10 Essential (primary) hypertension; E11.9 Type 2 diabetes mellitus without complications; M10.9 Gout, unspecified; E78.5 Hyperlipidemia, unspecified; E03.9 Hypothyroidism, unspecified; Z98.84 Bariatric surgery status; G47.33 Obstructive sleep apnea (adult) (pediatric); Z87.891 Personal history of nicotine dependence; Z51.5 Encounter for palliative care; Z83.3 Family history of diabetes mellitus; Z82.49 Family history of ischemic heart disease and other diseases of the circulatory system